=== PATIENT | female | born 1995 | race Caucasian/White ===

== ENCOUNTER 2018-04-07 22:41 | Emergency (ER) | payer SELFPAY ==
--- NOTE | 2018-04-08 01:01 | ER ---
Nurse's Notes [facility] Name: Nicole Myers Age: 22 yrs Sex: Female : 1995 Arrival Date: 04/07/2018 Time: 22:42 Bed 11 Private MD: Diagnosis: Otitis media, unspecified, left ear Presentation: 04/07 23:01 Presenting complaint: Patient states: that she has swollen lymph node on left side and fc left ear pain. Sore throat on Thursday but not today. Transition of care: patient was not received from another setting of care. Onset of symptoms was April 04, 2018. Risk Assessment: Do you want to hurt yourself or someone else? Patient reports no desire to harm self or others. Initial Sepsis Screen: Does the patient meet any 2 criteria? No. Patient's initial sepsis screen is negative. Does the patient have a suspected source of infection? No. Patient's initial sepsis screen is negative. Care prior to arrival: Medication(s) given: Tylenol, last at 1999. 23:01 Method Of Arrival: Ambulatory 23:01 Acuity: BRIANA 4 Triage Assessment: 23:04 General: Appears uncomfortable, obese, Behavior is calm, cooperative, appropriate for age. Pain: Complains of pain in left ear and neck Pain currently is 8 out of 10 on a pain scale. Pain began 2-3 days ago. Is continuous. EENT: Reports pain in left ear and left jaw when swallowing. Neuro: Level of Consciousness is awake, alert, obeys commands, Oriented to person, place, time, situation. Cardiovascular: No deficits noted. Respiratory: No deficits noted. GI: No deficits noted. : No deficits noted. Derm: Skin is pink, warm \T\ dry. Musculoskeletal: Circulation, motion, and sensation intact. Capillary refill < 3 seconds, Range of motion: intact in all extremities. 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 - Social history:: Smoking status: Patient/guardian denies using tobacco. - Ebola Screening: : Patient negative for fever greater than or equal to 101.5 degrees Fahrenheit, and additional compatible Ebola Virus Disease symptoms Patient denies exposure to infectious person Patient denies travel to an Ebola-affected area in the 21 days before illness onset. Screenin/23 00:55 Abuse screen: Denies threats or abuse. Nutritional screening: No deficits noted. kl Tuberculosis screening: No symptoms or risk factors identified. Fall Risk None identified. Assessment: 00:52 General: Appears in no apparent distress. kl 00:54 General: Behavior is calm, cooperative. Pain: Complains of pain in left jaw and left kl ear and neck Pain currently is 8 out of 10 on a pain scale. Neuro: No deficits noted. Cardiovascular: No deficits noted. Respiratory: No deficits noted. GI: No deficits noted. No signs and/or symptoms were reported involving the gastrointestinal system. : No deficits noted. No signs and/or symptoms were reported regarding the genitourinary system. EENT: Throat reports diffi swallowing. Derm: No deficits noted. Musculoskeletal: No deficits noted. Vital Signs: 04/07 23:05 BP 154 / 104; Pulse 92; Resp 18; Temp 99.1(TE); Pulse Ox 98% on R/A; Weight 190.51 kg fc (R); Height 5 ft. 4 in. (162.56 cm) (R); Pain 8/10; 23:05 Body Mass Index 72.09 (190.51 kg, 162.56 cm) ED Course: 22:42 Patient arrived in ED. ds1 23:01 Arm band placed on Patient placed in waiting room. 23:02 Triage completed. fc 23:59 Davida Cotto, ANAMARIA is Primary Nurse. bs1 04/08 00:33 Darrin Kramer NP is PHCP. pm1 00:33 Saúl Cortes MD is Attending Physician. pm1 01:10 Patient has correct armband on for positive identification. kl 01:10 No provider procedures requiring assistance completed. Patient did not have IV access kl during this emergency room visit. Administered Medications: 01:09 Drug: [place] 10 mg-325 mg 1 tabs Route: PO; kl 01:09 Drug: Augmentin 875 mg Route: PO; kl Outcome: 01:01 Discharge ordered by . pm1 01:10 Discharged to home ambulatory, with family. kl 01:10 Condition: good 01:10 Discharge instructions given to patient, Instructed on discharge instructions, follow up and referral plans. medication usage, Demonstrated understanding of instructions, follow-up care, medications, Prescriptions given X 2. 01:10 Patient left the ED. Signatures: Cecilia Solomon RN RN Xiomara Ugalde RN RN Yanelis Bello ds1 Darrin Kramer, DOTTY GLOVE TURNER pm1 Davida Cotto RN RN bs1
--- NOTE | 2018-04-08 01:01 | EDPHYS ---
Physician Documentation [facility] Name: Nicole Myers Age: 22 yrs Sex: Female : 1995 Arrival Date: 04/07/2018 Time: 22:42 Bed 11 Private MD: ED Physician Saúl Cortes HPI: 04/08 01:00 This 22 yrs old Female presents to ER via Ambulatory with complaints of Left pm1 ear pain. 01:00 The patient presents with pain. The complaints affect the left ear. Onset: The pm1 symptoms/episode began/occurred 2 day(s) ago. Modifying factors: The symptoms are alleviated by nothing, the symptoms are aggravated by pulling on ears. Associated signs and symptoms: Pertinent positives: fever, Pertinent negatives: nausea, sore throat, vertigo, vomiting. Severity of symptoms: in the emergency department the symptoms are worse. The patient has not experienced similar symptoms in the past. Patient with complaints of swollen lymph node below left ear. 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 - Social history:: Smoking status: Patient/guardian denies using tobacco. - Ebola Screening: : Patient negative for fever greater than or equal to 101.5 degrees Fahrenheit, and additional compatible Ebola Virus Disease symptoms Patient denies exposure to infectious person Patient denies travel to an Ebola-affected area in the 21 days before illness onset. ROS: 04/08 01:00 Eyes: Negative for injury, pain, redness, and discharge. pm1 Neck: Negative for injury, pain, and swelling, Cardiovascular: Negative for chest pain, palpitations, and edema, Respiratory: Negative for shortness of breath, cough, wheezing, and pleuritic chest pain, Abdomen/GI: Negative for abdominal pain, nausea, vomiting, diarrhea, and constipation, Back: Negative for injury and pain, MS/Extremity: Negative for injury and deformity, Skin: Negative for injury, rash, and discoloration, Neuro: Negative for headache, weakness, numbness, tingling, and seizure. Constitutional: Positive for fever, Negative for poor PO intake. ENT: Positive for ear pain, Negative for sore throat, dental pain, difficulty swallowing, difficulty handling secretions, hoarseness. Exam: 01:00 Constitutional: This is a well developed, well nourished patient who is awake, alert, pm1 and in no acute distress. Head/Face: Normocephalic, atraumatic. Eyes: Pupils equal round and reactive to light, extra-ocular motions intact. Lids and lashes normal. Conjunctiva and sclera are non-icteric and not injected. Cornea within normal limits. Periorbital areas with no swelling, redness, or edema. 01:00 Chest/axilla: Normal chest wall appearance and motion. Nontender with no deformity. No lesions are appreciated. Cardiovascular: Regular rate and rhythm with a normal S1 and S2. No gallops, murmurs, or rubs. Normal PMI, no JVD. No pulse deficits. Respiratory: Lungs have equal breath sounds bilaterally, clear to auscultation and percussion. No rales, rhonchi or wheezes noted. No increased work of breathing, no retractions or nasal flaring. 01:00 Abdomen/GI: Soft, non-tender, with normal bowel sounds. No distension or tympany. No guarding or rebound. No evidence of tenderness throughout. Back: No spinal tenderness. No costovertebral tenderness. Full range of motion. Skin: Warm, dry with normal turgor. Normal color with no rashes, no lesions, and no evidence of cellulitis. MS/ Extremity: Pulses equal, no cyanosis. Neurovascular intact. Full, normal range of motion. 01:00 ENT: External ear(s): are unremarkable, Ear canal(s): are normal, TM's: bulging, on the left, erythema, on the left, Examination of the other ear shows no obvious abnormality, Nose: is normal, Mouth: is normal, Posterior pharynx: is normal. 01:00 Neck: Lymph nodes: lymphadenopathy is appreciated, preauricular nodes, parotid nodes. 01:00 Neuro: Orientation: is normal, Motor: moves all fours. Vital Signs: 04/07 23:05 BP 154 / 104; Pulse 92; Resp 18; Temp 99.1(TE); Pulse Ox 98% on R/A; Weight 190.51 kg fc (R); Height 5 ft. 4 in. (162.56 cm) (R); Pain 8/10; 23:05 Body Mass Index 72.09 (190.51 kg, 162.56 cm) MDM: 04/08 00:50 Patient medically screened. pm1 01:00 Data reviewed: vital signs. Data interpreted: Pulse oximetry: on room air is 98 %. pm1 Interpretation: normal. Counseling: I had a detailed discussion with the patient and/or guardian regarding: the historical points, exam findings, and any diagnostic results supporting the discharge/admit diagnosis, the need for outpatient follow up, to return to the emergency department if symptoms worsen or persist or if there are any questions or concerns that arise at home. Administered Medications: 01:09 Drug: [place] 10 mg-325 mg 1 tabs Route: PO; kl 01:09 Drug: Augmentin 875 mg Route: PO; Disposition: 04/08/18 01:01 Discharged to Home. Impression: Otitis media, unspecified, left ear. - Condition is Stable. - Discharge Instructions: Otitis Media, Adult. - Prescriptions for Augmentin 875- 125 mg Oral Tablet - take 1 tablet by ORAL route every 12 hours for 10 days; 20 tablet. Tylenol- Codeine #3 300-30 mg Oral Tablet - take 2 tablets by ORAL route every 6 hours As needed; 20 tablet. - Medication Reconciliation Form, Thank You Letter, Antibiotic Education, Prescription Opioid Use form. - Follow up: Emergency Department; When: As needed; Reason: Worsening of condition. Follow up: Private Physician; When: 2 - 3 days; Reason: Recheck today's complaints, Continuance of care, Re-evaluation by your physician. - Problem is new. - Symptoms have improved. Addendum: 04/12/2018 17:38 Co-signature as Attending Physician, Saúl Cortes MD. g s Signatures: Cecilia Solomon RN RN kl Chretien, Felicia, RN RN fc Marinas, Patrick, DOTTY GRADUATE ENGINEER pm1 Saúl Cortes MD MD Corrections: (The following items were deleted from the chart) 04/08 01:10 01:01 04/08/2018 01:01 Discharged to Home. Impression: Otitis media, unspecified, left kl ear. Condition is Stable. Forms are Medication Reconciliation Form, Thank You Letter, Antibiotic Education, Prescription Opioid Use. Follow up: Emergency Department; When: As needed; Reason: Worsening of condition. Follow up: Private Physician; When: 2 - 3 days; Reason: Recheck today's complaints, Continuance of care, Re-evaluation by your physician. Problem is new. Symptoms have improved. pm1
[2018-04-08] MEDS ORDERED: HYDROCODONE/APAP 10/325 TAB ONE (01:11)
[2018-04-08] MEDS ORDERED: AMOX/K CLAV 875 MG TAB ONE (01:11)
== END 2018-04-08 01:10 | disposition home or self-care (01) ==
LOC: ER 22:41
DX: H66.92 Otitis media, unspecified, left ear (principal); I10 Essential (primary) hypertension; Z88.8 Allergy status to other drugs, medicaments and biological substances
CPT/HCPCS: 99283

== ENCOUNTER 2020-04-23 18:11 | Emergency (ER) | payer SELFPAY ==
[2020-04-23] MEDS ORDERED: ONDANSETRON 4 MG/2 ML VIAL ONE (18:57)
[2020-04-23] MEDS ORDERED: MORPHINE 4 MG/ML SYR ONE ×2 (18:57→20:26)
[2020-04-23] MEDS ORDERED: NA CHLORIDE 0.9% 1,000 ML ONE (18:57)
[2020-04-23 19:31] LABS: Absolute Lymphocytes (CBC) 1.4 K/uL (0.7-4.9); Basophils % 0.4 % (0-1.3); Hematocrit 46.6 % (36.0-45.0); Lymphocytes % 8.4 % (15.3-44.8); MPV 9.4 fL (7.6-11.3); RBC Red Blood Cell Count 5.34 M/uL (3.86-4.86)
[2020-04-23 19:44] LABS: Albumin 3.8 g/dL (3.4-5.0); Bilirubin Direct 0.3 mg/dL (0-0.2); Bilirubin Total 1.2 mg/dL (0.2-1.0); Potassium 3.9 mmol/L (3.5-5.1); Protein, Total 8.5 g/dL (6.4-8.2)
[2020-04-23 19:49] LABS: Urine Bacteria 20-50 /HPF (<20); Urine Culture Reflex Order REFLEXED
[2020-04-23 20:17] LABS: Urine Yeast FEW (NONE SEEN)
[2020-04-23] MEDS ORDERED: CEFTRIAXONE/SWI 1gm 1 GM/10 ML SYR ONE (20:26)
--- NOTE | 2020-04-23 20:45 | RAD REPORT ---
EXAM DESCRIPTION: CT - Abdomen Pelvis W Contrast - 04/23/2020 7:57 pm CLINICAL HISTORY: Abdominal pain COMPARISON: 2010 TECHNIQUE: Computed axial tomography of the abdomen pelvis was obtained. 100 cc Isovue-300 was admin istered intravenously. Oral contrast was not requested which limits evaluation of bowel. All CT scans are performed using dose optimization technique as appropriate and may include automated exposure control or mA/KV adjustment according to patient size. FINDINGS: Hepatomegaly. Fatty liver Spleen is mildly enlarged. Pancreas, adrenal and right kidney appear unremarkable. Mild left hydronephrosis. 2 millimeter calculus left UVJ There is no evidence of diverticulitis. IMPRESSION: A 2 millimeter calculus left UVJ resulting mild left hydronephrosis Hepatosplenomegaly.
[2020-04-23 21:18] LABS: Urine Blood 3+ (NEG); Urine Glucose NEGATIVE (NEG); Urine Protein 2+ (NEG); Urine Specific Gravity >1.030 (1.005-1.030); Urine pH 5.5 (5.0-7.0)
[2020-04-23 21:24] LABS: Blood Morphology Comment NOT SEEN (NOT SEEN); Platelet Estimate ADEQ
--- NOTE | 2020-04-23 21:29 | EDPHYS ---
Physician Documentation [facility] Name: Nicole Myers Age: 24 yrs Sex: Female : 1995 Arrival Date: 04/23/2020 Time: 18:15 Bed 5 Private MD: ED Physician Nova Navarrete HPI: 04/23 18:39 This 24 yrs old Female presents to ER via Ambulatory with complaints of Back pm1 Pain, Abdominal Pain, Vomiting. 18:39 The patient presents with pain that is acute. The symptoms are located in the left low pm1 back. Onset: The symptoms/episode began/occurred this morning. The pain does not radiate. Associated signs and symptoms: Pertinent positives: abdominal pain, dysuria, Pertinent negatives: fever. The problem was sustained from unknown cause. Modifying factors: The patient symptoms are alleviated by nothing, the patient symptoms are aggravated by nothing. Severity of symptoms: in the emergency department the symptoms are actually worse. The patient has not experienced similar symptoms in the past. 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 - Social history:: Smoking status: Patient denies any tobacco usage or history of. ROS: 18:39 Constitutional: Negative for fever, chills, and weight loss. pm1 18:39 Cardiovascular: Negative for chest pain, palpitations, and edema, Respiratory: Negative for shortness of breath, cough, wheezing, and pleuritic chest pain. 18:39 MS/Extremity: Negative for injury and deformity, Skin: Negative for injury, rash, and discoloration, Neuro: Negative for headache, weakness, numbness, tingling, and seizure. 18:39 Abdomen/GI: Positive for abdominal pain, nausea, vomiting, diarrhea, of the left lower quadrant. 18:39 Back: Positive for flank pain, on the left. 18:39 : Positive for burning with urination. Exam: 18:39 Constitutional: This is a well developed, well nourished patient who is awake, alert, pm1 and in no acute distress. Head/Face: Normocephalic, atraumatic. 18:39 Skin: Warm, dry with normal turgor. Normal color with no rashes, no lesions, and no evidence of cellulitis. MS/ Extremity: Pulses equal, no cyanosis. Neurovascular intact. Full, normal range of motion. 18:39 Cardiovascular: Exam negative for acute changes, Rate: normal, Rhythm: regular, Pulses: no pulse deficits are appreciated. 18:39 Respiratory: Exam negative for acute changes, respiratory distress, shortness of breath. 18:39 Abdomen/GI: Exam negative for acute changes, Inspection: obese Palpation: abdomen is soft and non-tender, in all quadrants. 18:39 Back: pain, that is moderate, of the left low back. 18:39 Neuro: Exam negative for acute changes, Orientation: is normal, Mentation: is normal, Motor: is normal, moves all fours, Sensation: is normal, no obvious gross deficits. Vital Signs: 18:30 BP 184 / 89; Pulse 123; Resp 18 S; Temp 98.6(O); Pulse Ox 97% on R/A; Weight 190.51 kg iw (R); Height 5 ft. 5 in. (165.10 cm); Pain 8/10; 19:17 BP 113 / 100; Pulse 112; Resp 19; Pulse Ox 98% ; rr5 19:54 BP 144 / 95; Pulse 93; Resp 17; Pulse Ox 100% ; Pain 6/10; mt2 20:30 BP 125 / 83; Pulse 108; Resp 16; Pulse Ox 98% ; rr5 21:16 BP 153 / 91; Pulse 90; Resp 19; Pulse Ox 99% ; rr5 18:30 Body Mass Index 69.89 (190.51 kg, 165.10 cm) iw MDM: 18:35 Patient medically screened. pm1 21:18 Data reviewed: vital signs. Data interpreted: Pulse oximetry: on room air is 99 %. pm1 Interpretation: normal. Counseling: I had a detailed discussion with the patient and/or guardian regarding: the historical points, exam findings, and any diagnostic results supporting the discharge/admit diagnosis, lab results, radiology results, the need for outpatient follow up, a urologist, to return to the emergency department if symptoms worsen or persist or if there are any questions or concerns that arise at home. 04/23 18:37 Order name: Urine Microscopic Only; Complete Time: 20:20 pm1 04/23 18:37 Order name: Basic Metabolic Panel; Complete Time: 19:57 pm1 04/23 18:37 Order name: CBC with Diff; Complete Time: 22:57 pm1 04/23 18:37 Order name: Hepatic Function; Complete Time: 19:57 pm1 04/23 18:37 Order name: Lipase; Complete Time: 19:57 pm1 04/23 19:04 Order name: Urine Dipstick--Ancillary (enter results); Complete Time: 22:57 ss 04/23 18:37 Order name: CT Abd/Pelvis - IV Contrast Only; Complete Time: 20:49 pm1 04/23 19:04 Order name: Urine --Ancillary (enter results); Complete Time: 22:57 ss 04/23 19:51 Order name: Urine Culture EDGA 04/23 21:22 Order name: Manual Differential; Complete Time: 22:57 EDGA 04/23 18:37 Order name: Urine Dipstick-Ancillary (obtain specimen); Complete Time: 19:03 pm1 04/23 18:37 Order name: Urine Test (obtain specimen); Complete Time: 19:03 pm1 04/23 18:37 Order name: IV Saline Lock; Complete Time: 19:14 pm1 04/23 18:37 Order name: Labs collected and sent; Complete Time: 19:13 pm1 Administered Medications: 19:13 Drug: NS 0.9% 1000 ml Route: IV; Rate: 1000 ml; Site: left forearm; jr10 21:25 Follow up: Response: No adverse reaction; IV Status: Completed infusion mt2 19:13 Drug: morphine 4 mg Route: IVP; Site: left forearm; jr10 19:40 Follow up: Response: No adverse reaction; Pain is decreased mt2 19:13 Drug: Zofran (Ondansetron) 4 mg Route: IVP; Site: left forearm; jr10 19:39 Follow up: Response: No adverse reaction; Pain is decreased mt2 20:24 Drug: Rocephin 1 grams Route: IV; Rate: calculated rate; Site: left forearm; mt2 21:00 Follow up: Response: No adverse reaction mt2 21:00 Follow up: IV Status: Completed infusion mt2 20:24 Drug: morphine 4 mg Route: IVP; Site: left forearm; mt2 21:00 Follow up: Response: No adverse reaction; Pain is decreased mt2 21:22 Drug: Ciprofloxacin 500 mg Route: PO; rr5 21:25 Follow up: Response: Medication administered at discharge. mt2 21:22 Drug: Flomax 0.4 mg Route: PO; rr5 21:25 Follow up: Response: Medication administered at discharge. mt2 Disposition: 04/23/20 21:20 Discharged to Home. Impression: Calculus of ureter - left. - Condition is Stable. - Discharge Instructions: Kidney Stones, Dietary Guidelines to Help Prevent Kidney Stones. - Prescriptions for Tylenol- Codeine #3 300-30 mg Oral Tablet - take 2 tablets by ORAL route every 6 hours As needed; 20 tablet. Zofran 4 mg Oral Tablet - take 1 tablet by ORAL route every 8 hours As needed; 20 tablet. Flomax 0.4 mg Oral Capsule, Sust. Release 24 hr - take 1 capsule by ORAL route once daily 1/2 hour following the same meal each day; 10 capsule. Cipro 500 mg Oral Tablet - take 1 tablet by ORAL route every 12 hours for 10 days; 20 tablet. - Medication Reconciliation Form, Thank You Letter, Antibiotic Education, Prescription Opioid Use form. - Follow up: Emergency Department; When: As needed; Reason: Worsening of condition. Follow up: Private Physician; When: 2 - 3 days; Reason: Recheck today's complaints, Continuance of care, Re-evaluation by your physician. - Problem is new. - Symptoms have improved. Signatures: Dispatcher [employer] [facility] Arabella Jiménez RN RN iw Darrin Kramer, DOTTY DINING ROOM HELPER pm1 Nolan Irby RN RN rr5 Jennifer Quinn RN RN mt2 Jess Decker RN RN jr10 Corrections: (The following items were deleted from the chart) 21:22 19:35 CBC Smear Scan ordered. [facility] 21:30 21:20 04/23/2020 21:20 Discharged to Home. Impression: Calculus of ureter - left. mt2 Condition is Stable. Forms are Medication Reconciliation Form, Thank You Letter, Antibiotic Education, Prescription Opioid Use. Follow up: Emergency Department; When: As needed; Reason: Worsening of condition. Follow up: Private Physician; When: 2 - 3 days; Reason: Recheck today's complaints, Continuance of care, Re-evaluation by your physician. Problem is new. Symptoms have improved. pm1
--- NOTE | 2020-04-23 21:29 | ER ---
Nurse's Notes [facility] Name: Nicole Myers Age: 24 yrs Sex: Female : 1995 Arrival Date: 04/23/2020 Time: 18:15 Bed 5 Private MD: Diagnosis: Calculus of ureter-left Presentation: 04/23 18:30 Chief complaint: Patient states: left low back pain radiating to middle since this iw morning, also had low abd pain , nausea, diarrhea, vomited twice, +chills, +discomfort with urination. Coronavirus screen: chills, diarrhea, vomiting. Ebola Screen: Patient negative for fever greater than or equal to 101.5 degrees Fahrenheit, and additional compatible Ebola Virus Disease symptoms Patient denies exposure to infectious person. Patient denies travel to an Ebola-affected area in the 21 days before illness onset. No symptoms or risks identified at this time. Initial Sepsis Screen: Does the patient meet any 2 criteria? No. Patient's initial sepsis screen is negative. Does the patient have a suspected source of infection? No. Patient's initial sepsis screen is negative. Risk Assessment: Do you want to hurt yourself or someone else? Patient reports no desire to harm self or others. Onset of symptoms was April 23, 2020. 18:30 Method Of Arrival: Ambulatory iw 18:30 Acuity: BRIANA 3 iw TECHNOLOGY COORDINATOR: 18:33 LMP N/A - Irregular menses iw Historical: - Allergies: 18:34 Hydrochlorothiazide; iw - Home Meds: 18:34 None [Active]; iw - PMHx: 18:34 Back pain; fatty liver; Hypertension; Anxiety; Depression; iw - PSHx: 18:34 None; iw - Immunization history:: Adult Immunizations not up to date. - Social history:: Smoking status: Patient denies any tobacco usage or history of. Screenin:21 Abuse screen: Denies threats or abuse. Denies injuries from another. Nutritional rr5 screening: No deficits noted. Tuberculosis screening: No symptoms or risk factors identified. Fall Risk IV access (20 points). Total Simmons Fall Scale indicates No Risk (0-24 pts). Assessment: 19:17 General: Appears in no apparent distress. comfortable, Behavior is calm, cooperative, rr5 appropriate for age. Pain: Complains of pain in abdomen Pain radiates to back Pain currently is 5 out of 10 on a pain scale. Quality of pain is described as aching, Pain began gradually, Is intermittent. Neuro: Level of Consciousness is awake, alert, obeys commands, Oriented to person, place, time, situation. Cardiovascular: Capillary refill < 3 seconds Patient's skin is warm and dry. Respiratory: Airway is patent Respiratory effort is even, unlabored, Respiratory pattern is regular, symmetrical. GI: Abdomen is round non-distended, obese, Reports lower abdominal pain, upper abdominal pain, vomiting. : No signs and/or symptoms were reported regarding the genitourinary system. EENT: No signs and/or symptoms were reported regarding the EENT system. Derm: Skin is intact, is healthy with good turgor, Skin temperature is warm. Musculoskeletal: Circulation, motion, and sensation intact. Capillary refill < 3 seconds. 19:53 Reassessment: Patient appears in no apparent distress at this time. Patient is alert, rr5 oriented x 3, equal unlabored respirations, skin warm/dry/pink. send for CT scan. 19:54 Reassessment: Patient and/or family updated on plan of care and expected duration. Pain mt2 level reassessed. Patient is alert, oriented x 3, equal unlabored respirations, skin warm/dry/pink. General: Appears uncomfortable, Behavior is cooperative. Pain: Complains of pain in abdomen Pain currently is 6 out of 10 on a pain scale. Quality of pain is described as crampy. 20:30 Reassessment: Patient appears in no apparent distress at this time. Patient is alert, rr5 oriented x 3, equal unlabored respirations, skin warm/dry/pink. Patient states symptoms have improved. 21:16 Reassessment: Patient appears in no apparent distress at this time. Patient is alert, rr5 oriented x 3, equal unlabored respirations, skin warm/dry/pink. reassess by ED provider at bedside. Vital Signs: 18:30 BP 184 / 89; Pulse 123; Resp 18 S; Temp 98.6(O); Pulse Ox 97% on R/A; Weight 190.51 kg iw (R); Height 5 ft. 5 in. (165.10 cm); Pain 8/10; 19:17 BP 113 / 100; Pulse 112; Resp 19; Pulse Ox 98% ; rr5 19:54 BP 144 / 95; Pulse 93; Resp 17; Pulse Ox 100% ; Pain 6/10; mt2 20:30 BP 125 / 83; Pulse 108; Resp 16; Pulse Ox 98% ; rr5 21:16 BP 153 / 91; Pulse 90; Resp 19; Pulse Ox 99% ; rr5 18:30 Body Mass Index 69.89 (190.51 kg, 165.10 cm) iw ED Course: 18:15 Patient arrived in ED. mr 18:25 Darrin Kramer NP is PHCP. pm1 18:25 Nova Navarrete MD is Attending Physician. pm1 18:33 Triage completed. iw 18:33 Arm band placed on. iw 18:34 Patient has correct armband on for positive identification. Bed in low position. Call mh5 light in reach. Side rails up X 1. Pillow given. Pulse ox on. NIBP on. 18:40 Radiology exam delayed due to test not completed at this time. IV insertion vm2 attempt and/or patient not having appropriate IV at this time. 19:01 Jennifer Quinn, ANAMARIA is Primary Nurse. mt2 19:14 No provider procedures requiring assistance completed. Inserted saline lock: 20 gauge jr10 in left forearm, using aseptic technique. IV is patent, is intact, with fluids infusing freely, with good blood return, Flushed. 19:58 CT Abd/Pelvis - IV Contrast Only In Process Unspecified. EDMS 21:26 IV discontinued, intact, bleeding controlled, No redness/swelling at site. Pressure mt2 dressing applied. Administered Medications: 19:13 Drug: NS 0.9% 1000 ml Route: IV; Rate: 1000 ml; Site: left forearm; jr10 21:25 Follow up: Response: No adverse reaction; IV Status: Completed infusion mt2 19:13 Drug: morphine 4 mg Route: IVP; Site: left forearm; jr10 19:40 Follow up: Response: No adverse reaction; Pain is decreased mt2 19:13 Drug: Zofran (Ondansetron) 4 mg Route: IVP; Site: left forearm; jr10 19:39 Follow up: Response: No adverse reaction; Pain is decreased mt2 20:24 Drug: Rocephin 1 grams Route: IV; Rate: calculated rate; Site: left forearm; mt2 21:00 Follow up: Response: No adverse reaction mt2 21:00 Follow up: IV Status: Completed infusion mt2 20:24 Drug: morphine 4 mg Route: IVP; Site: left forearm; mt2 21:00 Follow up: Response: No adverse reaction; Pain is decreased mt2 21:22 Drug: Ciprofloxacin 500 mg Route: PO; rr5 21:25 Follow up: Response: Medication administered at discharge. mt2 21:22 Drug: Flomax 0.4 mg Route: PO; rr5 21:25 Follow up: Response: Medication administered at discharge. mt2 Outcome: 21:20 Discharge ordered by MD. pm1 21:25 Discharged to home ambulatory. mt2 21:25 Condition: good 21:25 Discharge instructions given to patient, Instructed on discharge instructions, follow up and referral plans. medication usage, Demonstrated understanding of instructions, follow-up care, medications, Prescriptions given X 4. 21:30 Patient left the ED. mt2 Signatures: Dispatcher [employer] EDMS Stefani Decker Irene RN RN Darrin Kramer NP MEDICAL CHIEF TECHNICIAN 1 Emily Ríos 5 Heather Munoz 2 Nolan Irby RN RN rr5 Jennifer Quinn RN RN mt2 Jess Decker RN RN jr10 Corrections: (The following items were deleted from the chart) 21:29 21:25 Discharge instructions given to patient, Instructed on discharge instructions, mt2 follow up and referral plans. medication usage, Demonstrated understanding of instructions, follow-up care, medications, Prescriptions given X 2, mt2
[2020-04-23] MEDS ORDERED: CIPROFLOXACIN HCL 500 MG TAB ONE (21:32)
[2020-04-23] MEDS ORDERED: TAMSULOSIN 0.4 MG SR CAP ONE (21:32)
[2020-04-24 08:01] VITALS: TEMP 98.6
[2020-04-24 08:06] VITALS: BP 153/91; O2SAT 99
== END 2020-04-23 21:30 | disposition home or self-care (01) ==
LOC: ER 18:11
DX: N20.1 Calculus of ureter (principal); I10 Essential (primary) hypertension; Z88.8 Allergy status to other drugs, medicaments and biological substances
CPT/HCPCS: 36415; 74177; 80048; 80076; 81003; 81015; 81025; 83690; 85025; 87086; 87088; 96361; 96365; 96375; 99284; J0696; J2405; J7030; Q9967

== ENCOUNTER 2021-12-20 17:17 | Emergency (ER) | payer SELFPAY ==
--- OUTSIDE RECORDS SUMMARY | 2021-12-20 17:19 | XMS REPORT | Continuity of Care Document ---
:1995 Author Organization [facility] t Address [address] [place] [address] [address] [place] [address] Care Team Providers Name Role Phone Unavailable Unavailable Unavailable Problems This patient has no known problems. Allergies, Adverse Reactions, Alerts This patient has no known allergies or adverse reactions. Medications This patient has no known medications. Procedures This patient has no known procedures. Results Test Description Test Time Test Comments Results Result Comments Source COMPREHENSIVE METABOLIC PANEL 2021-09-19 03:48:15 Test Item Value Reference Range Interpretation Comme nts GLUCOSE (test code = 2217) 108 MG/DL 70-99 H BUN (test code = 2208) 15 MG/DL 6-20 CREATININE (test code = 0.64 MG/DL 0.60-1.30 2213) eGFR (2020 CKD-EPI) (test 124 ML/MIN/1.73 >60 code = 23690) CALC BUN/CREAT (test code = 23 RATIO 6-28 2234) SODIUM (test code = 2231) 140 MEQ/L 133-146 POTASSIUM (test code = 2228) 4.3 MEQ/L 3.5-5.4 CHLORIDE (test code = 2215) 100 MEQ/L 95-107 CARBON DIOXIDE (test code = 24 MEQ/L 19-31 2205) CALCIUM (test code = 2209) 10.4 MG/DL 8.5-10.5 PROTEIN, TOTAL (test code = 8.2 G/DL 6.1-8.3 2228) ALBUMIN (test code = 2201) 4.7 G/DL 3.5-5.2 CALC GLOBULIN (test code = 3.5 G/DL 1.9-3.7 2239) CALC A/G RATIO (test code = 1.3 RATIO 1.0-2.6 2233) BILIRUBIN, TOTAL (test code 0.7 MG/DL See_Comment [Automated message] The = 2207) system which ge nerated this result transmit jerri reference range : <=1.2. The reference range was not used to interpr et this result as iris l/abnormal. ALKALINE PHOSPHATASE (test 90 U/L 40-112 code = 2204) AST (test code = 2218) 19 U/L 9-40 ALT (test code = 2219) 28 U/L 5-40 LIPID [id number] 03:48:15 Test Item Value Reference Range Interpretation Comments CHOLESTEROL (test 193 MG/DL <200 code = 2210) TRIGLYCERIDES (test 107 MG/DL <150 code = 2232) HDL CHOLESTEROL (test 43 MG/DL >39 code = 2220) CALC LDL CHOL (test 129 MG/DL <100 H NOTE: C ALCULATED LDL code = 2237) IS BASED ON KASEY-KUMAR METHOD WHICHINCLUDES ADJUSTABLE TRIGLYCERIDE:VL DL CHOLESTEROL RAT IO.THIS FACTOR VARIES B Y MEASURED TRIGLY CERIDE AND NON-HDLCHOL ESTEROL CONCENTRATIONS WITH INCREASED CALCU LATED LDL SEENIN HIGH ER TRIGLYCERIDE OR LOWER NON-HDL SPECIME NS. FOR MOREINFORMATION , SEE CLIENT ANNOUNCE MENT AT [email or web address] [email or web address] LDL/HDL 3.00 RATIO <3.22 (test code = 2238) HEMOGLOBIN [id number] 02:42:45 Test Item Value Reference Range Interpretation Comments HEMOGLOBIN A1c (test 6.1 % 4.2-5.6 H UNLESS OTHERWISE code = 09040) INDICATED, ALL TESTING PERFORMED [facility] NICAL PATHOLOGY LABOR [facility] [place] [employer] [address] [place] [address] 4 LABORATORY DIRE CTOR: RICHY BOND M.D. CLIA NUMBER [id number] [facility] [place] [id number]
[2021-12-20] MEDS ORDERED: HYDROCODONE/APAP 7.5/325 MG TAB ONE (18:22)
[2021-12-20] MEDS ORDERED: TETRACAINE HCL 0.5% 4ML OPTH ONE (18:23)
[2021-12-20] MEDS ORDERED: TETANUS & DIPHTHERIA TOX,ADULT 0.5 ML VIAL ONE (18:23)
[2021-12-20] MEDS ORDERED: FLUORESCEIN SODIUM 1 MG/WRAP ONE (18:23)
[2021-12-20] MEDS ORDERED: CYCLOBENZAPRINE 10 MG TAB ONE (19:23)
[2021-12-20] MEDS ORDERED: LIDOCAINE 4% PATCH ONE (19:23)
--- NOTE | 2021-12-20 19:26 | EDPHYS ---
Physician Documentation [facility] Name: Nicole Myers Age: 26 yrs Sex: Female : 1995 Arrival Date: 12/20/2021 Time: 17:18 Bed 6 Private MD: ED Physician Nelda Ramirez HPI: 12/20 18:11 This 26 yrs old Female presents to ER via Ambulatory with complaints of Eye Pain, Ear pm1 Pain. 18:11 The patient is experiencing pain, redness, The patient sustained a scratch, to the pm1 right eye, caused by rubbing. Onset: The symptoms/episode began/occurred yesterday. Duration: the symptoms are continuous. Aggravated by nothing. Alleviated by nothing. Associated signs and symptoms: Pertinent positives: ear ache, Pertinent negatives: fever. Patient does not utilize any form of vision correction. Severity of symptoms: in the emergency department the symptoms are unchanged. The patient has not experienced similar symptoms in the past. The patient has not recently seen a physician. Patient is also reporting flare up of her left sided sciatica. Historical: - Allergies: 17:46 hydrochlorothiazide; iw - Home Meds: 17:46 lisinopril 40 mg Oral tab 1 tab once daily [Active]; glipizide 10 mg Oral tr24 1 tab iw once daily [Active]; Lovastatin Oral [Active]; Cyclobenzaprine Oral [Active]; - PMHx: 17:46 Anxiety; Back pain; Depression; fatty liver; Hypertension; Diabetes mellitus; iw - Immunization history:: Adult Immunizations unknown. - Social history:: Smoking status: unknown. ROS: 18:11 Constitutional: Negative for fever, chills, and weight loss. pm1 18:11 Neck: Negative for injury, pain, and swelling, Cardiovascular: Negative for chest pain, palpitations, and edema, Respiratory: Negative for shortness of breath, cough, wheezing, and pleuritic chest pain, Abdomen/GI: Negative for abdominal pain, nausea, vomiting, diarrhea, and constipation, Back: Negative for injury and pain. 18:11 Skin: Negative for injury, rash, and discoloration, Neuro: Negative for headache, weakness, numbness, tingling, and seizure. 18:11 Eyes: Positive for pain, redness, of the right eye. 18:11 ENT: Positive for ear pain, of the right ear. 18:11 MS/extremity: Positive for left sided sciatica pain. 18:11 All other systems are negative. Exam: 19:21 Constitutional: This is a well developed, well nourished patient who is awake, alert, pm1 and in no acute distress. Head/Face: Normocephalic, atraumatic. 19:21 Back: No spinal tenderness. No costovertebral tenderness. Full range of motion. Skin: Warm, dry with normal turgor. Normal color with no rashes, no lesions, and no evidence of cellulitis. MS/ Extremity: Pulses equal, no cyanosis. Neurovascular intact. Full, normal range of motion. 19:21 Eyes: Periorbital structures: appear normal, Pupils: no acute changes, Extraocular movements: no acute changes, Conjunctiva: injected, in the right eye, Corneas: abrasion, on the right, at 9 o'clock, foreign body, is not appreciated, a fluorescein strip employed to appreciate the findings, Lids and lashes: no acute changes. 19:21 ENT: Exam is negative for acute changes, External ear(s): are unremarkable, Ear canal(s): are normal, TM's: are normal, Mouth: no acute changes, Lips: normal, moist, Oral mucosa: normal, pink and intact, moist. 19:21 Cardiovascular: Exam negative for acute changes, Rate: normal, Rhythm: regular, Pulses: no pulse deficits are appreciated. 19:21 Respiratory: Exam negative for acute changes, respiratory distress, shortness of breath. 19:21 Neuro: Exam negative for acute changes, Orientation: is normal, Mentation: is normal, Motor: is normal, moves all fours. Vital Signs: 17:45 BP 114 / 67; Pulse 110; Resp 16; Temp 97.9; Weight 165.56 kg; Height 5 ft. 5 in. iw (165.10 cm); 17:45 Body Mass Index 60.74 (165.56 kg, 165.10 cm) Visual Acuity: 18:31 Left Eye Visual acuity 20/25, Pupil size 4 mm, Normal, React To Light, Reactive To jd3 Accomodation; Right Eye Visual acuity 20/30, Pupil size 4 mm, Normal, React To Light, Reactive To Accomodation; Both Eyes Visual acuity 20/20; With Lenses; MDM: 17:51 Patient medically screened. pm1 19:24 Data reviewed: vital signs. pm1 19:24 Counseling: I had a detailed discussion with the patient and/or guardian regarding: the pm1 historical points, exam findings, and any diagnostic results supporting the discharge/admit diagnosis, the need for outpatient follow up, an opthalmologist, to return to the emergency department if symptoms worsen or persist or if there are any questions or concerns that arise at home. 12/20 18:11 Order name: Eye Tray; Complete Time: 18:30 pm1 12/20 18:11 Order name: Fluoresene Opth strip; Complete Time: 18:30 pm1 12/20 18:11 Order name: Visual Acuity; Complete Time: 18:30 pm1 Administered Medications: 18:29 Drug: Tetanus-Diphtheria Toxoid Adult 0.5 ml {Dispatcher Clerk: [employer]. Exp: jd3 10/26/2023. Lot #: [id number]. } Route: IM; Site: left deltoid; 19:02 Follow up: Response: No adverse reaction jd3 18:30 Drug: [place] (HYDROcodone-acetaminophen) (7.5 mg-325 mg) 1 tabs Route: PO; jd3 19:03 Follow up: Response: No adverse reaction; RASS: Alert and Calm (0) jd3 18:30 Drug: Tetracaine Drops 0.5 % 1 drops {Note: at bedside to be administered by provider jd3 with eye exam..} Route: Ophthalmic; Site: right eye; 19:22 Drug: Flexeril (cyclobenzaprine) 10 mg Route: PO; tw5 19:46 Follow up: Response: No adverse reaction; RASS: Alert and Calm (0) tw5 19:23 Drug: Lidoderm Patch 5 % (700 mg/patch) 1 patches Route: Topical; Site: affected area; tw5 19:46 Follow up: Response: No adverse reaction; Pain is decreased tw5 Disposition Summary: 12/20/21 19:26 Discharge Ordered Location: Home pm1 Problem: new pm1 Symptoms: have improved pm1 Condition: Stable pm1 Diagnosis - Injury of conjunctiva and corneal abrasion without foreign body, right eye pm1 - Otalgia, bilateral pm1 - Lumbago with sciatica, left side pm1 Followup: pm1 - With: Emergency Department - When: As needed - Reason: Worsening of condition Followup: pm1 - With: Private Physician - When: 2 - 3 days - Reason: Recheck today's complaints, Continuance of care, Re-evaluation by your physician Discharge Instructions: - Discharge Summary Sheet pm1 - Corneal Abrasion pm1 - Earache, Adult pm1 - Sciatica pm1 Forms: - Medication Reconciliation Form pm1 - Thank You Letter pm1 - Antibiotic Education pm1 - Prescription Opioid Use pm1 Prescriptions: - Vigamox 0.5 % Ophthalmic Drops - instill 1 drop by OPHTHALMIC route every 8 hours for 7 days; 5 milliliter; pm1 Refills: 0, Product Selection Permitted - Tylenol-Codeine #3 300 mg-30 mg Oral - take 2 tablet by ORAL route every 6 hours As needed; 20 tablet; Refills: 0, pm1 Product Selection Permitted Signatures: Arabella Jiménez RN Darrin Lorenz NP MISSILE FACILITIES REPAIRER pm1 Berry Conti RN RN jd3 Wood, Tiffany tw5
--- NOTE | 2021-12-20 19:26 | ER ---
Nurse's Notes [facility] Name: Nicole Myers Age: 26 yrs Sex: Female : 1995 Arrival Date: 12/20/2021 Time: 17:18 Bed 6 Private MD: Diagnosis: Injury of conjunctiva and corneal abrasion without foreign body, right eye;Otalgia, bilateral;Lumbago with sciatica, left side Presentation: 12/20 17:45 Chief complaint: Parent and/or Guardian states: might have a scratched cornea, hit iw herself with her hand in right eye , and her left hip is acting up, has sciatica. Coronavirus screen: At this time, the client does not indicate any symptoms associated with coronavirus-19. Ebola Screen: Patient negative for fever greater than or equal to 101.5 degrees Fahrenheit, and additional compatible Ebola Virus Disease symptoms Patient denies exposure to infectious person. Patient denies travel to an Ebola-affected area in the 21 days before illness onset. No symptoms or risks identified at this time. Mechanism of Injury: No Mechanism of Injury. The patient denies any loss of vision. Initial Sepsis Screen: Does the patient meet any 2 criteria? No. Patient's initial sepsis screen is negative. Does the patient have a suspected source of infection? No. Patient's initial sepsis screen is negative. Risk Assessment: Do you want to hurt yourself or someone else? Patient reports no desire to harm self or others. Onset of symptoms was December 19, 2021. 17:45 Method Of Arrival: Ambulatory iw 17:45 Acuity: BRIANA 4 iw Historical: - Allergies: 17:46 hydrochlorothiazide; iw - Home Meds: 17:46 lisinopril 40 mg Oral tab 1 tab once daily [Active]; glipizide 10 mg Oral tr24 1 tab iw once daily [Active]; Lovastatin Oral [Active]; Cyclobenzaprine Oral [Active]; - PMHx: 17:46 Anxiety; Back pain; Depression; fatty liver; Hypertension; Diabetes mellitus; iw - Immunization history:: Adult Immunizations unknown. - Social history:: Smoking status: unknown. Screenin:33 Abuse screen: Denies threats or abuse. Nutritional screening: No deficits noted. jd3 Tuberculosis screening: No symptoms or risk factors identified. Fall Risk Ambulatory Aid- None/Bed Rest/Nurse Assist (0 pts). Gait- Normal/Bed Rest/Wheelchair (0 pts) Mental Status- Oriented to own ability (0 pts). Total Simmons Fall Scale indicates No Risk (0-24 pts). Assessment: 18:31 General: Appears in no apparent distress. comfortable, Behavior is calm, cooperative, jd3 appropriate for age. Pain: Complains of pain in right ear, left ear and right eye Quality of pain is described as sharp. Neuro: Nguyen Agitation-Sedation Scale (RASS): 0 - Alert and Calm Level of Consciousness is awake, alert, obeys commands, Oriented to person, place, time, situation. Cardiovascular: Capillary refill < 3 seconds Patient's skin is warm and dry. Respiratory: Airway is patent Respiratory effort is even, unlabored, Respiratory pattern is regular, symmetrical, Denies cough, shortness of breath. GI: No signs and/or symptoms were reported involving the gastrointestinal system. : No signs and/or symptoms were reported regarding the genitourinary system. EENT: Tympanic membrane clear on left ear and right ear Eyes are tearing on right eye Sclera/Cornea are reddened in right eye Reports pain in right eye, right ear and left ear. Derm: Skin is intact, Skin is dry, Skin is normal, Skin temperature is warm. Musculoskeletal: No signs and/or symptoms reported regarding the musculoskeletal system. 18:52 Reassessment: Patient appears in no apparent distress at this time. Patient and/or jd3 family updated on plan of care and expected duration. Pain level reassessed. Patient is alert, oriented x 3, equal unlabored respirations, skin warm/dry/pink. awaiting eye exam. 19:20 General: Appears uncomfortable, obese, Behavior is calm, cooperative, appropriate for tw5 age. Neuro: No deficits noted. Level of Consciousness is awake, alert, obeys commands, Oriented to person, place, time, situation. EENT: Eyes are tearing on outer aspect of conjuctiva of right eye, iris of right eye and inner aspect of conjuctiva of right eye. Vital Signs: 17:45 BP 114 / 67; Pulse 110; Resp 16; Temp 97.9; Weight 165.56 kg; Height 5 ft. 5 in. iw (165.10 cm); 17:45 Body Mass Index 60.74 (165.56 kg, 165.10 cm) iw Visual Acuity: 18:31 Left Eye Visual acuity 20/25, Pupil size 4 mm, Normal, React To Light, Reactive To jd3 Accomodation; Right Eye Visual acuity 20/30, Pupil size 4 mm, Normal, React To Light, Reactive To Accomodation; Both Eyes Visual acuity 20/20; With Lenses; ED Course: 17:18 Patient arrived in ED. ds1 17:40 Darrin Kramer NP is PHCP. pm1 17:40 Nelda Ramirez MD is Attending Physician. pm1 17:46 Triage completed. iw 17:48 Arm band placed on. iw 17:49 Berry Conti RN is Primary Nurse. jd3 18:33 Patient has correct armband on for positive identification. Bed in low position. Call jd3 light in reach. Side rails up X 1. Adult w/ patient. Pulse ox on. NIBP on. 19:02 Primary Nurse role handed off by Berry Conti RN tw5 19:02 Page Mercer is Primary Nurse. tw5 19:46 No provider procedures requiring assistance completed. Patient did not have IV access tw5 during this emergency room visit. Administered Medications: 18:29 Drug: Tetanus-Diphtheria Toxoid Adult 0.5 ml {Table Games Supervisor: [place]. Exp: jd3 10/26/2023. Lot #: [id number]. } Route: IM; Site: left deltoid; 19:02 Follow up: Response: No adverse reaction jd3 18:30 Drug: [place] (HYDROcodone-acetaminophen) (7.5 mg-325 mg) 1 tabs Route: PO; jd3 19:03 Follow up: Response: No adverse reaction; RASS: Alert and Calm (0) jd3 18:30 Drug: Tetracaine Drops 0.5 % 1 drops {Note: at bedside to be administered by provider jhorace with eye exam..} Route: Ophthalmic; Site: right eye; 19:22 Drug: Flexeril (cyclobenzaprine) 10 mg Route: PO; tw5 19:46 Follow up: Response: No adverse reaction; RASS: Alert and Calm (0) tw5 19:23 Drug: Lidoderm Patch 5 % (700 mg/patch) 1 patches Route: Topical; Site: affected area; tw5 19:46 Follow up: Response: No adverse reaction; Pain is decreased tw5 Outcome: 19:26 Discharge ordered by MD. pm1 19:46 Discharged to home ambulatory, with family. tw5 :46 Condition: good :46 Discharge instructions given to patient, Instructed on discharge instructions, follow up and referral plans. medication usage, Demonstrated understanding of instructions, follow-up care, medications, Prescriptions given X 2. :47 Patient left the ED. tw5 Signatures: Yanelis Herbert ds1 Arabella Jiménez RN RN iw Darrin Kramer NP CERTIFIED FLIGHT INSTRUCTOR pm1 Berry Conti RN RN Page Brooks tw5
[2021-12-20 21:41] VITALS: BP 114/67; TEMP 97.9
== END 2021-12-20 19:47 | disposition home or self-care (01) ==
LOC: ER 17:17
DX: S05.01XA Injury of conjunctiva and corneal abrasion without foreign body, right eye, initial encounter (principal); M54.41 Lumbago with sciatica, right side; H92.03 Otalgia, bilateral; I10 Essential (primary) hypertension; F41.9 Anxiety disorder, unspecified; F32.A Depression, unspecified; E11.9 Type 2 diabetes mellitus without complications; Z23 Encounter for immunization; Z88.8 Allergy status to other drugs, medicaments and biological substances
CPT/HCPCS: 90471; 90714; 99283

== ENCOUNTER 2023-12-22 11:04 | Emergency (ER) | payer SELFPAY ==
--- OUTSIDE RECORDS SUMMARY | 2023-12-22 11:09 | XMS REPORT | Continuity of Care Document ---
Author Name Unknown Address [address] [place] [address] [facility] Address [address] [place] [address] Care Team Providers Care Record Pressman Name Role Phone Ted DUTTON, [facility] Primary Care Physician [phone] Allergies, Adverse Reactions, Alerts Allergy Name Allergy Type Status Severity Reaction(s) Onset Date Inactive Date Treating Clinician Comments Source n Propensi ty to adverse reaction to drug Active 6-17 00:00: 00 hydroCHL OROthiaz buzz - Oral Propensi ty to adverse reaction to drug Active 3-03 00:00: 00 Hydrochl orothiaz buzz Propensi ty to adverse reaction to drug Active 8-04 00:00: 00 Medications Ordered Medication Name Filled Medication Name Start Date Stop Date Current Medication? Ordering Clinician Indication Dosage Frequency Signature (SIG) Comments Components Source TAKE 1 TABLET DAILY. 2021-08 2-14 00:00: 00 No Dose Unknown 2021-08 2-14 00:00: 00 No TAKE 1 TABLET DAILY. 9-28 00:00: 00 No TAKE 1 TABLET DAILY. -28 00:00: 00 No TAKE 1 TABLET DAILY. - 00:00: 00 No TAKE 1 TABLET DAILY. - 00:00: 00 No TAKE 1 TABLET DAILY. -23 00:00: 00 No TAKE TWO (2) TABLET(S) BY MOUTH EVERY SIX HOURS NEEDED FOR PAIN. 0 8-15 00:00: 00 No TAKE TWO (2) TABLET(S) BY MOUTH EVERY SIX HOURS NEEDED FOR PAIN. 0 8-15 00:00: 00 No TAKE TWO (2) TABLET(S) BY MOUTH EVERY SIX HOURS NEEDED FOR PAIN. 815 00:00: 00 No ProAir HFA 90 mcg/actuati on aerosol inhaler 03-06 00:00: 00 No 2mcg/ac tuation ProAir HFA 90 mcg/actuati on aerosol inhaler 03-06 00:00: 00 No 2mcg/ac tuation Dose Unknown 03-06 00:00: 00 No lisinopril 40 mg tablet 03-04 00:00: 00 No 1mg TAKE 1 TABLET DAILY. 03-04 00:00: 00 No amoxicillin 875 mg-potassiu m clavulanate 125 mg tablet 03-04 00:00: 00 No 1mg metformin ER 1,000 mg 24 hr tablet,exte nded release 03-04 00:00: 00 No 1mg lovastatin 10 mg tablet 03-04 00:00: 00 No 1mg prednisone 20 mg tablet 03-04 00:00: 00 No mg TAKE 1 TABLET DAILY. 03-04 00:00: 00 No TAKE 1 TABLET DAILY. 03-04 00:00: 00 No amoxicillin 875 mg-potassiu m clavulanate 125 mg tablet 03-04 00:00: 00 No 1mg metformin ER 1,000 mg 24 hr tablet,exte nded release 03-04 00:00: 00 No 1mg lovastatin 10 mg tablet 03-04 00:00: 00 No 1mg prednisone 20 mg tablet 03-04 00:00: 00 No mg TAKE 1 TABLET DAILY. 03-04 00:00: 00 No TAKE 1 TABLET DAILY. 03-04 00:00: 00 No TAKE 1 TABLET DAILY. 03-04 00:00: 00 No Dose Unknown 03-04 00:00: 00 No Dose Unknown 03-04 00:00: 00 No Dose Unknown 03-04 00:00: 00 No lisinopril 40 mg tablet 03-04 00:00: 00 No 1mg glipizide 10 mg tablet 0 03-04 00:00: 00 No 1mg amoxicillin 875 mg-potnatalieiu m clavulanate 125 mg tablet 03-04 00:00: 00 No 1mg metformin ER 1,000 mg 24 hr tablet,exte nded release 03-04 00:00: 00 No 1mg lovastatin 10 mg tablet 03-04 00:00: 00 No 1mg prednisone 20 mg tablet 03-04 00:00: 00 No mg cyclobenzap rine 10 mg tablet 01-31 00:00: 00 No 1mg cyclobenzap rine 10 mg tablet 01-31 00:00: 00 No 1mg Dose Unknown 01-31 00:00: 00 No cyclobenzap rine 10 mg tablet 01-31 00:00: 00 No 1mg lisinopril 40 mg tablet 12-05 00:00: 00 No 1mg TAKE 1 TABLET DAILY. 12-05 00:00: 00 No cyclobenzap rine 10 mg tablet 12-05 00:00: 00 No 1mg lovastatin 10 mg tablet 12-05 00:00: 00 No 1mg Dose Unknown 12-05 00:00: 00 No Dose Unknown 12-05 00:00: 00 No Dose Unknown 12-05 00:00: 00 No TAKE 1 TABLET DAILY. 12-05 00:00: 00 No TAKE 1 TABLET DAILY. 12-05 00:00: 00 No cyclobenzap rine 10 mg tablet 12-05 00:00: 00 No 1mg lovastatin 10 mg tablet 12-05 00:00: 00 No 1mg Dose Unknown 12-05 00:00: 00 No Dose Unknown 12-05 00:00: 00 No Dose Unknown 12-05 00:00: 00 No lisinopril 40 mg tablet - 00:00: 00 No 1mg glipizide 10 mg tablet 2022-0 4-21 00:00: 00 No 1mg cyclobenzap rine 10 mg tablet 2022-0 4-21 00:00: 00 No 1mg lovastatin 10 mg tablet 2022-0 4-21 00:00: 00 No 1mg Dose Unknown 2022-0 4-21 00:00: 00 No Dose Unknown 2022-0 4-21 00:00: 00 No Dose Unknown 2022-0 4-21 00:00: 00 No TAKE 1 TABLET DAILY. 2022-0 4-21 00:00: 00 No TAKE 1 TABLET DAILY. 2022-0 4-21 00:00: 00 No TAKE 1 TABLET DAILY. 2022-0 4-21 00:00: 00 No Dose Unknown 2022-0 4-21 00:00: 00 No Dose Unknown 2022-0 4-21 00:00: 00 No Dose Unknown 2022-0 4-21 00:00: 00 No Dose Unknown 2022-0 4-21 00:00: 00 No Dose Unknown 2022-0 3-03 00:00: 00 No Dose Unknown 2022-0 3-03 00:00: 00 No Dose Unknown 2022-0 3-03 00:00: 00 No Dose Unknown 2022-0 3-03 00:00: 00 No Dose Unknown 2022-0 3-03 00:00: 00 No Dose Unknown 2022-0 3-03 00:00: 00 No Dose Unknown 2022-0 3-03 00:00: 00 No Dose Unknown 2022-0 3-03 00:00: 00 No Dose Unknown 2022-0 3-03 00:00: 00 No Dose Unknown 2022-0 3-03 00:00: 00 No Dose Unknown 2022-0 3-03 00:00: 00 No Dose Unknown 2022-0 3-03 00:00: 00 No Dose Unknown 2022-0 3-03 00:00: 00 No Dose Unknown 2022-0 3-03 00:00: 00 No Dose Unknown 2022-0 3-03 00:00: 00 No Dose Unknown 2022-0 3-03 00:00: 00 No Dose Unknown 2022-0 2-03 00:00: 00 No Dose Unknown 2022-0 2-03 00:00: 00 No Dose Unknown 2022-0 2-03 00:00: 00 No Dose Unknown 2022-0 2- 00:00: 00 No Dose Unknown 0 - 00:00: 00 No Dose Unknown 2021-0 - 00:00: 00 No Dose Unknown 0 09-16 00:00: 00 No Dose Unknown 0 09-16 00:00: 00 No Dose Unknown 0 09-16 00:00: 00 No Dose Unknown 0 09-16 00:00: 00 No Dose Unknown 0 09-16 00:00: 00 No Dose Unknown 0 09-16 00:00: 00 No Dose Unknown 0 09-16 00:00: 00 No Dose Unknown 0 09-16 00:00: 00 No Dose Unknown 0 09-16 00:00: 00 No Dose Unknown 0 09-16 00:00: 00 No glipizide 10 mg tablet 2020-08 00:00: 00 No 1mg glipizide 10 mg tablet 2020-08 00:00: 00 No 1mg glipizide 10 mg tablet 2020-08 00:00: 00 No 1mg glipizide 10 mg tablet 2020-08 00:00: 00 No 1mg glipizide 10 mg tablet 2020-08 0 00:00: 00 No 1mg TAKE 1 TABLET DAILY. 2020-08 0 00:00: 00 No TAKE 1 TABLET DAILY. 2020-08 0 00:00: 00 No TAKE 1 TABLET DAILY. 2020-08 0 00:00: 00 No lisinopril 40 mg tablet 2020-08 0- 00:00: 00 No 1mg metformin ER 1,000 mg 24 hr tablet,exte nded release 2020-08 0- 00:00: 00 No 1mg cyclobenzap rine 10 mg tablet 2020-08 0- 00:00: 00 No 1mg lisinopril 40 mg tablet 2020-08 0- 00:00: 00 No 1mg metformin ER 1,000 mg 24 hr tablet,exte nded release 2020-08 0- 00:00: 00 No 1mg cyclobenzap rine 10 mg tablet 2020-08 0 00:00: 00 No 1mg TAKE 1 TABLET DAILY. 2020-08 0- 00:00: 00 No metformin ER 1,000 mg 24 hr tablet,exte nded release 2020-08 0 00:00: 00 No 1mg cyclobenzap rine 10 mg tablet 2020-08 0 00:00: 00 No 1mg TAKE 1 TABLET DAILY. 2020-08 0 00:00: 00 No cyclobenzap rine 10 mg tablet 2020-08 0 00:00: 00 No 1mg Dose Unknown 2020-08 00:00: 00 No lisinopril 30 mg tablet 04-17 00:00: 00 No 1mg lisinopril 40 mg tablet 04-17 00:00: 00 No 1mg metformin ER 1,000 mg 24 hr tablet,exte nded release 04-17 00:00: 00 No 1mg lisinopril 30 mg tablet 04-17 00:00: 00 No 1mg lisinopril 40 mg tablet 04-17 00:00: 00 No 1mg metformin ER 1,000 mg 24 hr tablet,exte nded release 04-17 00:00: 00 No 1mg TAKE 1 TABLET DAILY. 04-17 00:00: 00 No metformin ER 1,000 mg 24 hr tablet,exte nded release 04-17 00:00: 00 No 1mg TAKE 1 TABLET DAILY. 04-17 00:00: 00 No metformin ER 1,000 mg 24 hr tablet,exte nded release 04-17 00:00: 00 No 1mg metformin 500 mg tablet 04-03 00:00: 00 No 1mg metformin 500 mg tablet 04-03 00:00: 00 No 1mg metformin 500 mg tablet 04-03 00:00: 00 No 1mg Dose Unknown 04-03 00:00: 00 No lisinopril 20 mg tablet 8 00:00: 00 No 1mg prednisone 20 mg tablet 8 00:00: 00 No 1mg Dose Unknown 03-20 00:00: 00 No cyclobenzap rine 10 mg tablet 03-20 00:00: 00 No 1mg lisinopril 20 mg tablet 03-20 00:00: 00 No 1mg prednisone 20 mg tablet 03-20 00:00: 00 No 1mg Dose Unknown 03-20 00:00: 00 No cyclobenzap rine 10 mg tablet 0 03-20 00:00: 00 No 1mg lisinopril 20 mg tablet 03-20 00:00: 00 No 1mg prednisone 20 mg tablet 03-20 00:00: 00 No 1mg Dose Unknown 03-20 00:00: 00 No Dose Unknown 03-20 00:00: 00 No lisinopril 20 mg tablet 03-20 00:00: 00 No 1mg prednisone 20 mg tablet 03-20 00:00: 00 No 1mg ibuprofen 800 mg tablet 03-20 00:00: 00 No 1mg cyclobenzap rine 10 mg tablet 03-20 00:00: 00 No 1mg Vital Signs Vital Name Observation Time Observation Value Comments S ource BP Systolic 2022-07-30 15:02:00 127 mm[Hg] BP Diastolic 2022-07-30 15:02:00 80 mm[Hg] Weight Measured 2022-07-30 15:02:00 341.60 pounds Height Measured 2022-07-30 15:02:00 65.00 inches Body Temperature 2022-07-30 15:02:00 97.20 degrees Heart Rate 2022-07-30 15:02:00 98.00 /min Respiratory Rate 2022-07-30 15:02:00 19.00 /min BP Systolic 2022-07-02 15:55:00 120 mm[Hg] BP Diastolic 2022-07-02 15:55:00 78 mm[Hg] Weight Measured 2022-07-02 15:55:00 336.80 pounds Height Measured 2022-07-02 15:55:00 65.00 inches Body Temperature 2022-07-02 15:55:00 98.20 degrees Heart Rate 2022-07-02 15:55:00 90.00 /min Respiratory Rate 2022-07-02 15:55:00 BP Systolic 2022-05-08 15:09:00 115 mm[Hg] BP Diastolic 2022-05-08 15:09:00 67 mm[Hg] Weight Measured 2022-05-08 15:09:00 327.80 pounds Height Measured 2022-05-08 15:09:00 65.00 inches Body Temperature 2022-05-08 15:09:00 98.40 degrees Heart Rate 2022-05-08 15:09:00 110.00 /min Respiratory Rate 2022-05-08 15:09:00 20.00 /min BP Systolic 2021-12-05 14:40:00 123 mm[Hg] BP Diastolic 2021-12-05 14:40:00 66 mm[Hg] Weight Measured 2021-12-05 14:40:00 365.00 pounds Height Measured 2021-12-05 14:40:00 65.00 inches Body Temperature 2021-12-05 14:40:00 98.70 degrees Heart Rate 2021-12-05 14:40:00 101.00 /min Respiratory Rate 2021-12-05 14:40:00 21.00 /min BP Systolic 2021-09-16 14:11:00 117 mm[Hg] BP Diastolic 2021-09-16 14:11:00 69 mm[Hg] Weight Measured 2021-09-16 14:11:00 358.00 pounds Height Measured 2021-09-16 14:11:00 65.00 inches Body Temperature 2021-09-16 14:11:00 98.40 degrees Heart Rate 2021-09-16 14:11:00 122.00 /min Respiratory Rate 2021-09-16 14:11:00 24.00 /min BP Systolic 2021-06-26 13:15:00 96 mm[Hg] BP Diastolic 2021-06-26 13:15:00 67 mm[Hg] Weight Measured 2021-06-26 13:15:00 350.40 pounds Height Measured 2021-06-26 13:15:00 65.00 inches Body Temperature 2021-06-26 13:15:00 98.40 degrees Heart Rate 2021-06-26 13:15:00 109.00 /min Respiratory Rate 2021-06-26 13:15:00 18.00 /min BP Systolic 2021-06-25 13:37:00 103 mm[Hg] BP Diastolic 2021-06-25 13:37:00 57 mm[Hg] Weight Measured 2021-06-25 13:37:00 352.20 pounds Height Measured 2021-06-25 13:37:00 65.00 inches Body Temperature 2021-06-25 13:37:00 97.50 degrees Heart Rate 2021-06-25 13:37:00 120.00 /min Respiratory Rate 2021-06-25 13:37:00 BP Systolic 2021-06-12 14:47:00 129 mm[Hg] BP Diastolic 2021-06-12 14:47:00 79 mm[Hg] Weight Measured 2021-06-12 14:47:00 356.20 pounds Height Measured 2021-06-12 14:47:00 65.00 inches Body Temperature 2021-06-12 14:47:00 97.50 degrees Heart Rate 2021-06-12 14:47:00 116.00 /min Respiratory Rate 2021-06-12 14:47:00 24.00 /min BP Systolic 2021-05-22 14:17:00 127 mm[Hg] BP Diastolic 2021-05-22 14:17:00 86 mm[Hg] Weight Measured 2021-05-22 14:17:00 354.40 pounds Height Measured 2021-05-22 14:17:00 65.00 inches Body Temperature 2021-05-22 14:17:00 98.70 degrees Heart Rate 2021-05-22 14:17:00 104.00 /min Respiratory Rate 2021-05-22 14:17:00 BP Systolic 2021-04-17 14:55:00 121 mm[Hg] BP Diastolic 2021-04-17 14:55:00 78 mm[Hg] Weight Measured 2021-04-17 14:55:00 361.00 pounds Height Measured 2021-04-17 14:55:00 65.00 inches Body Temperature 2021-04-17 14:55:00 97.80 degrees Heart Rate 2021-04-17 14:55:00 108.00 /min Respiratory Rate 2021-04-17 14:55:00 BP Systolic 2021-04-17 14:26:00 121 mm[Hg] BP Diastolic 2021-04-17 14:26:00 78 mm[Hg] Weight Measured 2021-04-17 14:26:00 361.00 pounds Height Measured 2021-04-17 14:26:00 65.00 inches Body Temperature 2021-04-17 14:26:00 97.80 degrees Heart Rate 2021-04-17 14:26:00 108.00 /min Respiratory Rate 2021-04-17 14:26:00 BP Systolic 2021-04-03 14:24:00 148 mm[Hg] BP Diastolic 2021-04-03 14:24:00 84 mm[Hg] Weight Measured 2021-04-03 14:24:00 362.40 pounds Height Measured 2021-04-03 14:24:00 65.00 inches Body Temperature 2021-04-03 14:24:00 98.10 degrees Heart Rate 2021-04-03 14:24:00 Respiratory Rate 2021-04-03 14:24:00 BP Systolic 2021-03-20 15:41:00 144 mm[Hg] BP Diastolic 2021-03-20 15:41:00 78 mm[Hg] Weight Measured 2021-03-20 15:41:00 370.80 pounds Height Measured 2021-03-20 15:41:00 65.00 inches Body Temperature 2021-03-20 15:41:00 98.50 degrees Heart Rate 2021-03-20 15:41:00 85.00 /min Respiratory Rate 2021-03-20 15:41:00 Plan of Care Planned Activity Planned Date Details Comments Source Goal Plan of Care Note [code = 60244-9] Goal Plan of Care Note [code = 34445-3] Goal Plan of Care Note [code = 46097-5] Goal Plan of Care Note [code = 19087-4] Goal Plan of Care Note [code = 82090-5] Goal Plan of Care Note [code = 10502-2] Goal Plan of Care Note [code = 03397-4] Goal Plan of Care Note [code = 37339-7] Goal Plan of Care Note [code = 81181-2] Goal Plan of Care Note [code = 73624-7] Goal Plan of Care Note [code = 70408-8] Goal Plan of Care Note [code = 70172-4] Goal Plan of Care Note [code = 28334-4] Goal Plan of Care Note [code = 11570-6] Goal Plan of Care Note [code = 35437-9] Goal Plan of Care Note [code = 82438-4] Goal Plan of Care Note [code = 48579-7] Goal Plan of Care Note [code = 76057-5] Goal Plan of Care Note [code = 86640-0] Goal Plan of Care Note [code = 12547-4] Goal Plan of Care Note [code = 50712-3] Goal Plan of Care Note [code = 78473-1] Goal Plan of Care Note [code = 02693-1] Goal Plan of Care Note [code = 72915-0] Goal Plan of Care Note [code = 71317-2] Goal Plan of Care Note [code = 36571-6] Goal Plan of Care Note [code = 74891-4] Goal Plan of Care Note [code = 09042-0] Goal Plan of Care Note [code = 74169-2] Goal Plan of Care Note [code = 36926-0] Goal Plan of Care Note [code = 58492-2] Goal Plan of Care Note [code = 84164-7] Goal Plan of Care Note [code = 32453-5] Goal Plan of Care Note [code = 38824-2] Goal Plan of Care Note [code = 89781-5] Goal Plan of Care Note [code = 78971-2] Goal Plan of Care Note [code = 27691-2] Goal Plan of Care Note [code = 55009-5] Goal Plan of Care Note [code = 09340-4] Goal Plan of Care Note [code = 85966-9] Goal Plan of Care Note [code = 37563-7] Goal Plan of Care Note [code = 91649-2] Goal Plan of Care Note [code = 65480-2] Goal Plan of Care Note [code = 28187-0] Goal Plan of Care Note [code = 96555-0] Goal Plan of Care Note [code = 31006-4] Goal Plan of Care Note [code = 74677-4] Goal Plan of Care Note [code = 39877-2] Goal Plan of Care Note [code = 53872-4] Goal Plan of Care Note [code = 37686-2] Goal Plan of Care Note [code = 43724-6] Goal Plan of Care Note [code = 92914-6] Goal Plan of Care Note [code = 33974-8] Goal Plan of Care Note [code = 63686-3] Goal Plan of Care Note [code = 07134-1] Goal Plan of Care Note [code = 98950-5] Goal Plan of Care Note [code = 03451-1] Goal Plan of Care Note [code = 90151-3] Goal Plan of Care Note [code = 58692-2] Goal Plan of Care Note [code = 13492-2] Goal Plan of Care Note [code = 49998-7] Goal Plan of Care Note [code = 30413-4] Encounters Start Date/Time End Date/Time Encounter Type Admission Type Attending [facility] Care Department Encounter ID Source 2023-09-03 16:00:06 2023-09-03 16:00:06 Outpatient [place] [id number] Henry Aggarwal 2023-08-13 17:32:11 2023-08-13 17:32:11 [place]patient [place] [id number] Henry Aggarwal 2022-11-27 16:15:57 2022-11-27 16:15:57 [place]patient [place] [id number] Henry Aggarwal 2022-11-25 15:11:52 2022-11-25 15:11:52 [place]patient [place] [id number] Henry Aggarwal 2022-08-06 15:28:35 2022-08-06 15:28:35 Outpatient [place] [id number] Henry Aggarwal 2022-07-30 14:49:07 2022-07-30 14:49:07 Outpatient [place] [id number] Henry Aggarwal 2022-07-30 00:00:00 2022-07-30 00:00:00 Outpatient Visit [id number] 2022-07-02 15:43:12 2022-07-02 15:43:12 Outpatient [facility] [id number] Henry Aggarwal 2022-07-02 00:00:00 2022-07-02 00:00:00 Outpatient Visit [id number] 2022-05-08 00:00:00 2022-05-08 00:00:00 Outpatient Visit [id number] 2022-03-04 00:00:00 2022-03-04 00:00:00 Outpatient Visit [id number] Results Test Description Test Time Test Comments Results Result Co mments Source CULTURE, URINE 2022-11-30 19:04:35 SPECIMEN NUMBER: [id number] CULTURE, URINE SPECIMEN NUMBER: [id number] SPECIMEN COMMENT: URINE SOURCE: URINE REPORT STATUS: FINAL FINAL REPORT: 11/30/2022 <10,000 CFU/ML UROGENITAL [place] PRESENT NO COMMON PATHOGENS [facility] has important pathology staff changes effective 10/15/2022. New pathology staff will provide uninterrupted, excellent patient care and clinical consultation. See URL: [email or web address]. UNLESS OTHERWISE INDICATED, ALL TESTING PERFORMED AT [facility] [address] [place] [address] WOUND TREATMENT RN: ALTHEA VASQUES M.D. CLIA NUMBER [id number] [facility] [place]. [id number] LIPID [id number] 00:00:00* Test Item Value Reference Range Interpretation Comme nts CHOLESTEROL (test code = 2210) 121 MG/DL TRIGLYCERIDES (test code = 2232) 116 MG/DL HDL CHOLESTEROL (test code = 2220) 40 MG/DL CALC LDL CHOL (test code = 2237) 61 MG/DL RISK RATIO LDL/HDL (test cod e = 2238) 1.53 RATIO LIPID [id number] 00:00:00* Test Item Value Reference Range Interpretation Comme nts CHOLESTEROL (test code = 2210) 121 MG/DL TRIGLYCERIDES (test code = 2232) 116 MG/DL HDL CHOLESTEROL (test code = 2220) 40 MG/DL CALC LDL CHOL (test code = 2237) 61 MG/DL RISK RATIO LDL/HDL (test cod e = 2238) 1.53 RATIO LIPID [id number] 00:00:00* Test Item Value Reference Range Interpretation Comme nts CHOLESTEROL (test code = 2210) 121 MG/DL TRIGLYCERIDES (test code = 2232) 116 MG/DL HDL CHOLESTEROL (test code = 2220) 40 MG/DL CALC LDL CHOL (test code = 2237) 61 MG/DL RISK RATIO LDL/HDL (test cod e = 2238) 1.53 RATIO LIPID [id number] 00:00:00* Test Item Value Reference Range Interpretation Comme nts CHOLESTEROL (test code = 2210) 121 MG/DL TRIGLYCERIDES (test code = 2232) 116 MG/DL HDL CHOLESTEROL (test code = 2220) 40 MG/DL CALC LDL CHOL (test code = 2237) 61 MG/DL RISK RATIO LDL/HDL (test cod e = 2238) 1.53 RATIO LIPID [id number] 00:00:00* Test Item Value Reference Range Interpretation Comme nts CHOLESTEROL (test code = 2210) 121 MG/DL TRIGLYCERIDES (test code = 2232) 116 MG/DL HDL CHOLESTEROL (test code = 2220) 40 MG/DL CALC LDL CHOL (test code = 2237) 61 MG/DL RISK RATIO LDL/HDL (test cod e = 2238) 1.53 RATIO LIPID [id number] 00:00:00* Test Item Value Reference Range Interpretation Comme nts CHOLESTEROL (test code = 2210) 121 MG/DL TRIGLYCERIDES (test code = 2232) 116 MG/DL HDL CHOLESTEROL (test code = 2220) 40 MG/DL CALC LDL CHOL (test code = 2237) 61 MG/DL RISK RATIO LDL/HDL (test cod e = 2238) 1.53 RATIO COMPREHENSIVE METABOLIC [id number] 03:48:15* Test Item Value Reference Range Interpretation Comme nts GLUCOSE (test code = 2216) 108 MG/DL 70-99 H BUN (test code = 2207) 15 MG/DL 6-20 CREATININE (test code = 2213) 0.64 MG/DL 0.60-1.30 eGFR (2020 CKD-EPI) (test code = 60733) 124 ML/MIN/1.73 >60 CALC BUN/CREAT (test code = 2234) 23 RATIO 6-28 SODIUM (test code = 2230) 140 MEQ/L 133-146 POTASSIUM (test code = 2227) 4.3 MEQ/L 3.5-5.4 CHLORIDE (test code = 2214) 100 MEQ/L 95-107 CARBON DIOXIDE (test code = 2205) 24 MEQ/L 19-31 CALCIUM (test code = 2208) 10.4 MG/DL 8.5-10.5 PROTEIN, TOTAL (test code = 2228) 8.2 G/DL 6.1-8.3 ALBUMIN (test code = 2200) 4.7 G/DL 3.5-5.2 CALC GLOBULIN (test code = 224) 3.5 G/DL 1.9-3.7 CALC A/G RATIO (test code = 2233) 1.3 RATIO 1.0-2.6 BILIRUBIN, TOTAL (test code = 2206) 0.7 MG/DL See_Comment [Automated me ssage] The system which generated this result transmitted reference range: <=1.2. The reference range was not used to interpret this result as normal/abnormal. ALKALINE PHOSPHATASE (test code = 2203) 90 U/L 40-112 AST (test code = 221) 19 U/L 9-40 ALT (test code = 2219) 28 U/L 5-40 LIPID [id number] 03:48:15* Test Item Value Reference Range Interpretation Comme nts CHOLESTEROL (test code = 2210) 193 MG/DL <200 TRIGLYCERIDES (test code = 223) 107 MG/DL <150 HDL CHOLESTEROL (test code = 2220) 43 MG/DL >39 CALC LDL CHOL (test code = 2236) 129 MG/DL <100 H NOTE: CALCULATED LDL IS BASED ON KASEY-KUMAR METHOD WHICHINCLUDES ADJUSTABLE TRIGLYCERIDE:VLDL CHOLESTEROL RATIO.THIS FACTOR VARIES BY MEASURED TRIGLYCERIDE AND NON-HDLCHOLESTEROL CONCENTRATIONS WITH INCREASED CALCULATED LDL SEENIN HIGHER TRIGLYCERIDE OR LOWER NON-HDL SPECIMENS. FOR MOREINFORMATION, SEE CLIENT ANNOUNCEMENT AT [email or web address] RISK RATIO LDL/HDL (test code = 2238) 3.00 RATIO <3.22 HEMOGLOBIN [id number] 02:42:45* Test Item Value Reference Range Interpretation Comme nts HEMOGLOBIN A1c (test code = 23294) 6.1 % 4.2-5.6 H UNLESS OTHERWISE INDICATED, ALL TEST[facility]FORMED [facility] [address] [place] [address] WOUND TREATMENT RN: RICHY QUINTERO M.D. CLIA NUMBER [id number] [facility] [place]. [id number] LIPID [id number] 00:00:00* Test Item Value Reference Range Interpretation Comme nts CHOLESTEROL (test code = 2210) 193 MG/DL TRIGLYCERIDES (test code = 2232) 107 MG/DL HDL CHOLESTEROL (test code = 2220) 43 MG/DL CALC LDL CHOL (test code = 2237) 129 MG/DL RISK RATIO LDL/HDL (test cod e = 2238) 3.00 RATIO LIPID [id number] 00:00:00* Test Item Value Reference Range Interpretation Comme nts CHOLESTEROL (test code = 2210) 193 MG/DL TRIGLYCERIDES (test code = 2232) 107 MG/DL HDL CHOLESTEROL (test code = 2220) 43 MG/DL CALC LDL CHOL (test code = 2237) 129 MG/DL RISK RATIO LDL/HDL (test cod e = 2238) 3.00 RATIO HEMOGLOBIN [id number] 00:00:00* Test Item Value Reference Range Interpretation Comme nts HEMOGLOBIN A1c (test code = 48121) 6.1 % HEMOGLOBIN [id number] 00:00:00* Test Item Value Reference Range Interpretation Comme nts HEMOGLOBIN A1c (test code = 06521) 6.1 % HEMOGLOBIN [id number] 00:00:00* Test Item Value Reference Range Interpretation Comme nts HEMOGLOBIN A1c (test code = 22201) 6.1 % COMPREHENSIVE METABOLIC [id number] 00:00:00* Test Item Value Reference Range Interpretation Comme nts GLUCOSE (test code = 2217) 108 MG/DL BUN (test code = 2208) 15 MG/DL CREATININE (test code = 2214) 0.64 MG/DL eGFR (2020 CKD-EPI) (test code = 53995) 124 ML/MIN/1.73 CALC BUN/CREAT (test code = 2235) 23 RATIO SODIUM (test code = 2231) 140 MEQ/L POTASSIUM (test code = 2228) 4.3 MEQ/L CHLORIDE (test code = 2215) 100 MEQ/L CARBON DIOXIDE (test code = 2206) 24 MEQ/L CALCIUM (test code = 2209) 10.4 MG/DL PROTEIN, TOTAL (test code = 2229) 8.2 G/DL ALBUMIN (test code = 2201) 4.7 G/DL CALC GLOBULIN (test code = 2240) 3.5 G/DL CALC A/G RATIO (test code = 2234) 1.3 RATIO BILIRUBIN, TOTAL (test code = 2207) 0.7 MG/DL ALKALINE PHOSPHATASE (test code = 2204) 90 U/L AST (test code = 2218) 19 U/L ALT (test code = 2219) 28 U/L COMPREHENSIVE METABOLIC [id number] 00:00:00* Test Item Value Reference Range Interpretation Comme nts GLUCOSE (test code = 2217) 108 MG/DL BUN (test code = 2208) 15 MG/DL CREATININE (test code = 2214) 0.64 MG/DL eGFR (2020 CKD-EPI) (test code = 79569) 124 ML/MIN/1.73 CALC BUN/CREAT (test code = 2235) 23 RATIO SODIUM (test code = 2231) 140 MEQ/L POTASSIUM (test code = 2228) 4.3 MEQ/L CHLORIDE (test code = 2215) 100 MEQ/L CARBON DIOXIDE (test code = 2206) 24 MEQ/L CALCIUM (test code = 2209) 10.4 MG/DL PROTEIN, TOTAL (test code = 2229) 8.2 G/DL ALBUMIN (test code = 2201) 4.7 G/DL CALC GLOBULIN (test code = 2240) 3.5 G/DL CALC A/G RATIO (test code = 2234) 1.3 RATIO BILIRUBIN, TOTAL (test code = 2207) 0.7 MG/DL ALKALINE PHOSPHATASE (test code = 2204) 90 U/L AST (test code = 2218) 19 U/L ALT (test code = 2219) 28 U/L LIPID [id number] 00:00:00* Test Item Value Reference Range Interpretation Comme nts CHOLESTEROL (test code = 2210) 193 MG/DL TRIGLYCERIDES (test code = 2232) 107 MG/DL HDL CHOLESTEROL (test code = 2220) 43 MG/DL CALC LDL CHOL (test code = 2237) 129 MG/DL RISK RATIO LDL/HDL (test cod e = 2238) 3.00 RATIO LIPID [id number] 00:00:00* Test Item Value Reference Range Interpretation Comme nts CHOLESTEROL (test code = 2210) 193 MG/DL TRIGLYCERIDES (test code = 2232) 107 MG/DL HDL CHOLESTEROL (test code = 2220) 43 MG/DL CALC LDL CHOL (test code = 2237) 129 MG/DL RISK RATIO LDL/HDL (test cod e = 2238) 3.00 RATIO HEMOGLOBIN [id number] 00:00:00* Test Item Value Reference Range Interpretation Comme nts HEMOGLOBIN A1c (test code = 95859) 6.1 % HEMOGLOBIN [id number] 00:00:00* Test Item Value Reference Range Interpretation Comme nts HEMOGLOBIN A1c (test code = 88295) 6.1 % HEMOGLOBIN [id number] 00:00:00* Test Item Value Reference Range Interpretation Comme nts HEMOGLOBIN A1c (test code = 80500) 6.1 % COMPREHENSIVE METABOLIC [id number] 00:00:00* Test Item Value Reference Range Interpretation Comme nts GLUCOSE (test code = 2217) 108 MG/DL BUN (test code = 2208) 15 MG/DL CREATININE (test code = 2214) 0.64 MG/DL eGFR (2020 CKD-EPI) (test code = 87886) 124 ML/MIN/1.73 CALC BUN/CREAT (test code = 2235) 23 RATIO SODIUM (test code = 2231) 140 MEQ/L POTASSIUM (test code = 2228) 4.3 MEQ/L CHLORIDE (test code = 2215) 100 MEQ/L CARBON DIOXIDE (test code = 2206) 24 MEQ/L CALCIUM (test code = 2209) 10.4 MG/DL PROTEIN, TOTAL (test code = 2229) 8.2 G/DL ALBUMIN (test code = 2201) 4.7 G/DL CALC GLOBULIN (test code = 2240) 3.5 G/DL CALC A/G RATIO (test code = 2234) 1.3 RATIO BILIRUBIN, TOTAL (test code = 2207) 0.7 MG/DL ALKALINE PHOSPHATASE (test code = 2204) 90 U/L AST (test code = 2218) 19 U/L ALT (test code = 2219) 28 U/L COMPREHENSIVE METABOLIC [id number] 00:00:00* Test Item Value Reference Range Interpretation Comme nts GLUCOSE (test code = 2217) 108 MG/DL BUN (test code = 2208) 15 MG/DL CREATININE (test code = 2214) 0.64 MG/DL eGFR (2020 CKD-EPI) (test code = 98136) 124 ML/MIN/1.73 CALC BUN/CREAT (test code = 2235) 23 RATIO SODIUM (test code = 2231) 140 MEQ/L POTASSIUM (test code = 2228) 4.3 MEQ/L CHLORIDE (test code = 2215) 100 MEQ/L CARBON DIOXIDE (test code = 2206) 24 MEQ/L CALCIUM (test code = 2209) 10.4 MG/DL PROTEIN, TOTAL (test code = 2229) 8.2 G/DL ALBUMIN (test code = 2201) 4.7 G/DL CALC GLOBULIN (test code = 2240) 3.5 G/DL CALC A/G RATIO (test code = 2234) 1.3 RATIO BILIRUBIN, TOTAL (test code = 2207) 0.7 MG/DL ALKALINE PHOSPHATASE (test code = 2204) 90 U/L AST (test code = 2218) 19 U/L ALT (test code = 2219) 28 U/L LIPID [id number] 00:00:00* Test Item Value Reference Range Interpretation Comme nts CHOLESTEROL (test code = 2210) 193 MG/DL TRIGLYCERIDES (test code = 2232) 107 MG/DL HDL CHOLESTEROL (test code = 2220) 43 MG/DL CALC LDL CHOL (test code = 2237) 129 MG/DL RISK RATIO LDL/HDL (test cod e = 2238) 3.00 RATIO LIPID [id number] 00:00:00* Test Item Value Reference Range Interpretation Comme nts CHOLESTEROL (test code = 2210) 193 MG/DL TRIGLYCERIDES (test code = 2232) 107 MG/DL HDL CHOLESTEROL (test code = 2220) 43 MG/DL CALC LDL CHOL (test code = 2237) 129 MG/DL RISK RATIO LDL/HDL (test cod e = 2238) 3.00 RATIO HEMOGLOBIN [id number] 00:00:00* Test Item Value Reference Range Interpretation Comme nts HEMOGLOBIN A1c (test code = 36072) 6.1 % HEMOGLOBIN [id number] 00:00:00* Test Item Value Reference Range Interpretation Comme nts HEMOGLOBIN A1c (test code = 90923) 6.1 % HEMOGLOBIN [id number] 00:00:00* Test Item Value Reference Range Interpretation Comme nts HEMOGLOBIN A1c (test code = 52667) 6.1 % COMPREHENSIVE METABOLIC [id number] 00:00:00* Test Item Value Reference Range Interpretation Comme nts GLUCOSE (test code = 2217) 108 MG/DL BUN (test code = 2208) 15 MG/DL CREATININE (test code = 2214) 0.64 MG/DL eGFR (2020 CKD-EPI) (test code = 89669) 124 ML/MIN/1.73 CALC BUN/CREAT (test code = 2235) 23 RATIO SODIUM (test code = 2231) 140 MEQ/L POTASSIUM (test code = 2228) 4.3 MEQ/L CHLORIDE (test code = 2215) 100 MEQ/L CARBON DIOXIDE (test code = 2206) 24 MEQ/L CALCIUM (test code = 2209) 10.4 MG/DL PROTEIN, TOTAL (test code = 2229) 8.2 G/DL ALBUMIN (test code = 2201) 4.7 G/DL CALC GLOBULIN (test code = 2240) 3.5 G/DL CALC A/G RATIO (test code = 2234) 1.3 RATIO BILIRUBIN, TOTAL (test code = 2207) 0.7 MG/DL ALKALINE PHOSPHATASE (test code = 2204) 90 U/L AST (test code = 2218) 19 U/L ALT (test code = 2219) 28 U/L LIPID [id number] 00:00:00* Test Item Value Reference Range Interpretation Comme nts CHOLESTEROL (test code = 2210) 193 MG/DL TRIGLYCERIDES (test code = 2232) 107 MG/DL HDL CHOLESTEROL (test code = 2220) 43 MG/DL CALC LDL CHOL (test code = 2237) 129 MG/DL RISK RATIO LDL/HDL (test cod e = 2238) 3.00 RATIO HEMOGLOBIN [id number] 00:00:00* Test Item Value Reference Range Interpretation Comme nts HEMOGLOBIN A1c (test code = 35751) 6.1 % HEMOGLOBIN [id number] 00:00:00* Test Item Value Reference Range Interpretation Comme nts HEMOGLOBIN A1c (test code = 82914) 6.1 % COMPREHENSIVE METABOLIC [id number] 00:00:00* Test Item Value Reference Range Interpretation Comme nts GLUCOSE (test code = 2217) 108 MG/DL BUN (test code = 2208) 15 MG/DL CREATININE (test code = 2214) 0.64 MG/DL eGFR (2020 CKD-EPI) (test code = 24369) 124 ML/MIN/1.73 CALC BUN/CREAT (test code = 2235) 23 RATIO SODIUM (test code = 2231) 140 MEQ/L POTASSIUM (test code = 2228) 4.3 MEQ/L CHLORIDE (test code = 2215) 100 MEQ/L CARBON DIOXIDE (test code = 2206) 24 MEQ/L CALCIUM (test code = 2209) 10.4 MG/DL PROTEIN, TOTAL (test code = 2229) 8.2 G/DL ALBUMIN (test code = 2201) 4.7 G/DL CALC GLOBULIN (test code = 2240) 3.5 G/DL CALC A/G RATIO (test code = 2234) 1.3 RATIO BILIRUBIN, TOTAL (test code = 2207) 0.7 MG/DL ALKALINE PHOSPHATASE (test code = 2204) 90 U/L AST (test code = 2218) 19 U/L ALT (test code = 2219) 28 U/L COMPREHENSIVE METABOLIC [id number] 00:00:00* Test Item Value Reference Range Interpretation Comme nts GLUCOSE (test code = 2217) 108 MG/DL BUN (test code = 2208) 15 MG/DL CREATININE (test code = 2214) 0.64 MG/DL eGFR (2020 CKD-EPI) (test code = 45884) 124 ML/MIN/1.73 CALC BUN/CREAT (test code = 2235) 23 RATIO SODIUM (test code = 2231) 140 MEQ/L POTASSIUM (test code = 2228) 4.3 MEQ/L CHLORIDE (test code = 2215) 100 MEQ/L CARBON DIOXIDE (test code = 2206) 24 MEQ/L CALCIUM (test code = 2209) 10.4 MG/DL PROTEIN, TOTAL (test code = 2229) 8.2 G/DL ALBUMIN (test code = 2201) 4.7 G/DL CALC GLOBULIN (test code = 2240) 3.5 G/DL CALC A/G RATIO (test code = 2234) 1.3 RATIO BILIRUBIN, TOTAL (test code = 2207) 0.7 MG/DL ALKALINE PHOSPHATASE (test code = 2204) 90 U/L AST (test code = 2218) 19 U/L ALT (test code = 2219) 28 U/L LIPID [id number] 00:00:00* Test Item Value Reference Range Interpretation Comme nts CHOLESTEROL (test code = 2210) 182 MG/DL TRIGLYCERIDES (test code = 2232) 131 MG/DL HDL CHOLESTEROL (test code = 2220) 41 MG/DL CALC LDL CHOL (test code = 2237) 116 MG/DL RISK RATIO LDL/HDL (test cod e = 2238) 2.83 RATIO LIPID [id number] 00:00:00* Test Item Value Reference Range Interpretation Comme nts CHOLESTEROL (test code = 2210) 182 MG/DL TRIGLYCERIDES (test code = 2232) 131 MG/DL HDL CHOLESTEROL (test code = 2220) 41 MG/DL CALC LDL CHOL (test code = 2237) 116 MG/DL RISK RATIO LDL/HDL (test cod e = 2238) 2.83 RATIO COMPREHENSIVE METABOLIC [id number] 00:00:00* Test Item Value Reference Range Interpretation Comme nts GLUCOSE (test code = 2217) 171 MG/DL BUN (test code = 2208) 13 MG/DL CREATININE (test code = 2214) 0.66 MG/DL eGFR AMER. (test cod e = 31515) 140 ML/MIN/1.73 eGFR NON- AMER. (test code = 78238) 121 ML/MIN/1.73 CALC BUN/CREAT (test code = 2235) 20 RATIO SODIUM (test code = 2231) 137 MEQ/L POTASSIUM (test code = 2228) 4.6 MEQ/L CHLORIDE (test code = 2215) 97 MEQ/L CARBON DIOXIDE (test code = 2206) 26 MEQ/L CALCIUM (test code = 2209) 10.1 MG/DL PROTEIN, TOTAL (test code = 2229) 8.1 G/DL ALBUMIN (test code = 2201) 4.8 G/DL CALC GLOBULIN (test code = 2240) 3.3 G/DL CALC A/G RATIO (test code = 2234) 1.5 RATIO BILIRUBIN, TOTAL (test code = 2207) 1.3 MG/DL ALKALINE PHOSPHATASE (test code = 2204) 85 U/L AST (test code = 2218) 46 U/L ALT (test code = 2219) 62 U/L COMPREHENSIVE METABOLIC [id number] 00:00:00* Test Item Value Reference Range Interpretation Comme nts GLUCOSE (test code = 2217) 171 MG/DL BUN (test code = 2208) 13 MG/DL CREATININE (test code = 2214) 0.66 MG/DL eGFR AMER. (test cod e = 98074) 140 ML/MIN/1.73 eGFR NON- AMER. (test code = 82309) 121 ML/MIN/1.73 CALC BUN/CREAT (test code = 2235) 20 RATIO SODIUM (test code = 2231) 137 MEQ/L POTASSIUM (test code = 2228) 4.6 MEQ/L CHLORIDE (test code = 2215) 97 MEQ/L CARBON DIOXIDE (test code = 2206) 26 MEQ/L CALCIUM (test code = 2209) 10.1 MG/DL PROTEIN, TOTAL (test code = 2229) 8.1 G/DL ALBUMIN (test code = 2201) 4.8 G/DL CALC GLOBULIN (test code = 2240) 3.3 G/DL CALC A/G RATIO (test code = 2234) 1.5 RATIO BILIRUBIN, TOTAL (test code = 2207) 1.3 MG/DL ALKALINE PHOSPHATASE (test code = 2204) 85 U/L AST (test code = 2218) 46 U/L ALT (test code = 2219) 62 U/L HEMOGLOBIN [id number] 00:00:00* Test Item Value Reference Range Interpretation Comme nts HEMOGLOBIN A1c (test code = 83212) 7.6 % HEMOGLOBIN [id number] 00:00:00* Test Item Value Reference Range Interpretation Comme nts HEMOGLOBIN A1c (test code = 46361) 7.6 % HEMOGLOBIN [id number] 00:00:00* Test Item Value Reference Range Interpretation Comme nts HEMOGLOBIN A1c (test code = 46773) 7.6 % LIPID [id number] 00:00:00* Test Item Value Reference Range Interpretation Comme nts CHOLESTEROL (test code = 2210) 182 MG/DL TRIGLYCERIDES (test code = 2232) 131 MG/DL HDL CHOLESTEROL (test code = 2220) 41 MG/DL CALC LDL CHOL (test code = 2237) 116 MG/DL RISK RATIO LDL/HDL (test cod e = 2238) 2.83 RATIO LIPID [id number] 00:00:00* Test Item Value Reference Range Interpretation Comme nts CHOLESTEROL (test code = 2210) 182 MG/DL TRIGLYCERIDES (test code = 2232) 131 MG/DL HDL CHOLESTEROL (test code = 2220) 41 MG/DL CALC LDL CHOL (test code = 2237) 116 MG/DL RISK RATIO LDL/HDL (test cod e = 2238) 2.83 RATIO COMPREHENSIVE METABOLIC [id number] 00:00:00* Test Item Value Reference Range Interpretation Comme nts GLUCOSE (test code = 2217) 171 MG/DL BUN (test code = 2208) 13 MG/DL CREATININE (test code = 2214) 0.66 MG/DL eGFR AMER. (test cod e = 71002) 140 ML/MIN/1.73 eGFR NON- AMER. (test code = 36739) 121 ML/MIN/1.73 CALC BUN/CREAT (test code = 2235) 20 RATIO SODIUM (test code = 2231) 137 MEQ/L POTASSIUM (test code = 2228) 4.6 MEQ/L CHLORIDE (test code = 2215) 97 MEQ/L CARBON DIOXIDE (test code = 2206) 26 MEQ/L CALCIUM (test code = 2209) 10.1 MG/DL PROTEIN, TOTAL (test code = 2229) 8.1 G/DL ALBUMIN (test code = 2201) 4.8 G/DL CALC GLOBULIN (test code = 2240) 3.3 G/DL CALC A/G RATIO (test code = 2234) 1.5 RATIO BILIRUBIN, TOTAL (test code = 2207) 1.3 MG/DL ALKALINE PHOSPHATASE (test code = 2204) 85 U/L AST (test code = 2218) 46 U/L ALT (test code = 2219) 62 U/L COMPREHENSIVE METABOLIC [id number] 00:00:00* Test Item Value Reference Range Interpretation Comme nts GLUCOSE (test code = 2217) 171 MG/DL BUN (test code = 2208) 13 MG/DL CREATININE (test code = 2214) 0.66 MG/DL eGFR AMER. (test cod e = 51622) 140 ML/MIN/1.73 eGFR NON- AMER. (test code = 39252) 121 ML/MIN/1.73 CALC BUN/CREAT (test code = 2235) 20 RATIO SODIUM (test code = 2231) 137 MEQ/L POTASSIUM (test code = 2228) 4.6 MEQ/L CHLORIDE (test code = 2215) 97 MEQ/L CARBON DIOXIDE (test code = 2206) 26 MEQ/L CALCIUM (test code = 2209) 10.1 MG/DL PROTEIN, TOTAL (test code = 2229) 8.1 G/DL ALBUMIN (test code = 2201) 4.8 G/DL CALC GLOBULIN (test code = 2240) 3.3 G/DL CALC A/G RATIO (test code = 2234) 1.5 RATIO BILIRUBIN, TOTAL (test code = 2207) 1.3 MG/DL ALKALINE PHOSPHATASE (test code = 2204) 85 U/L AST (test code = 2218) 46 U/L ALT (test code = 2219) 62 U/L HEMOGLOBIN [id number] 00:00:00* Test Item Value Reference Range Interpretation Comme nts HEMOGLOBIN A1c (test code = 88037) 7.6 % HEMOGLOBIN [id number] 00:00:00* Test Item Value Reference Range Interpretation Comme nts HEMOGLOBIN A1c (test code = 45227) 7.6 % HEMOGLOBIN [id number] 00:00:00* Test Item Value Reference Range Interpretation Comme nts HEMOGLOBIN A1c (test code = 84714) 7.6 % LIPID [id number] 00:00:00* Test Item Value Reference Range Interpretation Comme nts CHOLESTEROL (test code = 2210) 182 MG/DL TRIGLYCERIDES (test code = 2232) 131 MG/DL HDL CHOLESTEROL (test code = 2220) 41 MG/DL CALC LDL CHOL (test code = 2237) 116 MG/DL RISK RATIO LDL/HDL (test cod e = 2238) 2.83 RATIO LIPID [id number] 00:00:00* Test Item Value Reference Range Interpretation Comme nts CHOLESTEROL (test code = 2210) 182 MG/DL TRIGLYCERIDES (test code = 2232) 131 MG/DL HDL CHOLESTEROL (test code = 2220) 41 MG/DL CALC LDL CHOL (test code = 2237) 116 MG/DL RISK RATIO LDL/HDL (test cod e = 2238) 2.83 RATIO COMPREHENSIVE METABOLIC [id number] 00:00:00* Test Item Value Reference Range Interpretation Comme nts GLUCOSE (test code = 2217) 171 MG/DL BUN (test code = 2208) 13 MG/DL CREATININE (test code = 2214) 0.66 MG/DL eGFR AMER. (test cod e = 84838) 140 ML/MIN/1.73 eGFR NON- AMER. (test code = 28172) 121 ML/MIN/1.73 CALC BUN/CREAT (test code = 2235) 20 RATIO SODIUM (test code = 2231) 137 MEQ/L POTASSIUM (test code = 2228) 4.6 MEQ/L CHLORIDE (test code = 2215) 97 MEQ/L CARBON DIOXIDE (test code = 2206) 26 MEQ/L CALCIUM (test code = 2209) 10.1 MG/DL PROTEIN, TOTAL (test code = 2229) 8.1 G/DL ALBUMIN (test code = 2201) 4.8 G/DL CALC GLOBULIN (test code = 2240) 3.3 G/DL CALC A/G RATIO (test code = 2234) 1.5 RATIO BILIRUBIN, TOTAL (test code = 2207) 1.3 MG/DL ALKALINE PHOSPHATASE (test code = 2204) 85 U/L AST (test code = 2218) 46 U/L ALT (test code = 2219) 62 U/L COMPREHENSIVE METABOLIC [id number] 00:00:00* Test Item Value Reference Range Interpretation Comme nts GLUCOSE (test code = 2217) 171 MG/DL BUN (test code = 2208) 13 MG/DL CREATININE (test code = 2214) 0.66 MG/DL eGFR AMER. (test cod e = 96139) 140 ML/MIN/1.73 eGFR NON- AMER. (test code = 50854) 121 ML/MIN/1.73 CALC BUN/CREAT (test code = 2235) 20 RATIO SODIUM (test code = 2231) 137 MEQ/L POTASSIUM (test code = 2228) 4.6 MEQ/L CHLORIDE (test code = 2215) 97 MEQ/L CARBON DIOXIDE (test code = 2206) 26 MEQ/L CALCIUM (test code = 2209) 10.1 MG/DL PROTEIN, TOTAL (test code = 2229) 8.1 G/DL ALBUMIN (test code = 2201) 4.8 G/DL CALC GLOBULIN (test code = 2240) 3.3 G/DL CALC A/G RATIO (test code = 2234) 1.5 RATIO BILIRUBIN, TOTAL (test code = 2207) 1.3 MG/DL ALKALINE PHOSPHATASE (test code = 2204) 85 U/L AST (test code = 2218) 46 U/L ALT (test code = 2219) 62 U/L HEMOGLOBIN [id number] 00:00:00* Test Item Value Reference Range Interpretation Comme nts HEMOGLOBIN A1c (test code = 25937) 7.6 % HEMOGLOBIN [id number] 00:00:00* Test Item Value Reference Range Interpretation Comme nts HEMOGLOBIN A1c (test code = 02421) 7.6 % LIPID [id number] 00:00:00* Test Item Value Reference Range Interpretation Comme nts CHOLESTEROL (test code = 2210) 182 MG/DL TRIGLYCERIDES (test code = 2232) 131 MG/DL HDL CHOLESTEROL (test code = 2220) 41 MG/DL CALC LDL CHOL (test code = 2237) 116 MG/DL RISK RATIO LDL/HDL (test cod e = 2238) 2.83 RATIO COMPREHENSIVE METABOLIC [id number] 00:00:00* Test Item Value Reference Range Interpretation Comme nts GLUCOSE (test code = 2217) 171 MG/DL BUN (test code = 2208) 13 MG/DL CREATININE (test code = 2214) 0.66 MG/DL eGFR AMER. (test cod e = 67197) 140 ML/MIN/1.73 eGFR NON- AMER. (test code = 27921) 121 ML/MIN/1.73 CALC BUN/CREAT (test code = 2235) 20 RATIO SODIUM (test code = 2231) 137 MEQ/L POTASSIUM (test code = 2228) 4.6 MEQ/L CHLORIDE (test code = 2215) 97 MEQ/L CARBON DIOXIDE (test code = 2206) 26 MEQ/L CALCIUM (test code = 2209) 10.1 MG/DL PROTEIN, TOTAL (test code = 2229) 8.1 G/DL ALBUMIN (test code = 2201) 4.8 G/DL CALC GLOBULIN (test code = 2240) 3.3 G/DL CALC A/G RATIO (test code = 2234) 1.5 RATIO BILIRUBIN, TOTAL (test code = 2207) 1.3 MG/DL ALKALINE PHOSPHATASE (test code = 2204) 85 U/L AST (test code = 2218) 46 U/L ALT (test code = 2219) 62 U/L HEMOGLOBIN [id number] 00:00:00* Test Item Value Reference Range Interpretation Comme nts HEMOGLOBIN A1c (test code = 80156) 7.6 % HEMOGLOBIN [id number] 00:00:00* Test Item Value Reference Range Interpretation Comme nts HEMOGLOBIN A1c (test code = 76061) 7.6 % HEMOGLOBIN [id number] 00:00:00* Test Item Value Reference Range Interpretation Comme nts HEMOGLOBIN A1c (test code = 01833) 7.6 % LIPID [id number] 00:00:00* Test Item Value Reference Range Interpretation Comme nts CHOLESTEROL (test code = 2210) 177 MG/DL TRIGLYCERIDES (test code = 2232) 177 MG/DL HDL CHOLESTEROL (test code = 2220) 41 MG/DL CALC LDL CHOL (test code = 2237) 107 MG/DL RISK RATIO LDL/HDL (test cod e = 2238) 2.61 RATIO LIPID [id number] 00:00:00* Test Item Value Reference Range Interpretation Comme nts CHOLESTEROL (test code = 2210) 177 MG/DL TRIGLYCERIDES (test code = 2232) 177 MG/DL HDL CHOLESTEROL (test code = 2220) 41 MG/DL CALC LDL CHOL (test code = 2237) 107 MG/DL RISK RATIO LDL/HDL (test cod e = 2238) 2.61 RATIO COMPREHENSIVE METABOLIC [id number] 00:00:00* Test Item Value Reference Range Interpretation Comme nts GLUCOSE (test code = 2217) 194 MG/DL BUN (test code = 8) 14 MG/DL CREATININE (test code = 2214) 0.68 MG/DL eGFR AMER. (test cod e = 59187) 139 ML/MIN/1.73 eGFR NON- AMER. (test code = 01805) 120 ML/MIN/1.73 CALC BUN/CREAT (test code = 2235) 21 RATIO SODIUM (test code = 2231) 138 MEQ/L POTASSIUM (test code = 2228) 4.7 MEQ/L CHLORIDE (test code = 2215) 99 MEQ/L CARBON DIOXIDE (test code = 2206) 24 MEQ/L CALCIUM (test code = 2209) 10.4 MG/DL PROTEIN, TOTAL (test code = 2229) 7.7 G/DL ALBUMIN (test code = 2201) 4.6 G/DL CALC GLOBULIN (test code = 2240) 3.1 G/DL CALC A/G RATIO (test code = 2234) 1.5 RATIO BILIRUBIN, TOTAL (test code = 2207) 0.8 MG/DL ALKALINE PHOSPHATASE (test code = 2204) 96 U/L AST (test code = 2218) 38 U/L ALT (test code = 2219) 55 U/L COMPREHENSIVE METABOLIC [id number] 00:00:00* Test Item Value Reference Range Interpretation Comme nts GLUCOSE (test code = 2217) 194 MG/DL BUN (test code = 2208) 14 MG/DL CREATININE (test code = 2214) 0.68 MG/DL eGFR AMER. (test cod e = 22441) 139 ML/MIN/1.73 eGFR NON- AMER. (test code = 95148) 120 ML/MIN/1.73 CALC BUN/CREAT (test code = 2235) 21 RATIO SODIUM (test code = 2231) 138 MEQ/L POTASSIUM (test code = 2228) 4.7 MEQ/L CHLORIDE (test code = 2215) 99 MEQ/L CARBON DIOXIDE (test code = 2206) 24 MEQ/L CALCIUM (test code = 2209) 10.4 MG/DL PROTEIN, TOTAL (test code = 2229) 7.7 G/DL ALBUMIN (test code = 2201) 4.6 G/DL CALC GLOBULIN (test code = 2240) 3.1 G/DL CALC A/G RATIO (test code = 2234) 1.5 RATIO BILIRUBIN, TOTAL (test code = 2207) 0.8 MG/DL ALKALINE PHOSPHATASE (test code = 2204) 96 U/L AST (test code = 2218) 38 U/L ALT (test code = 2219) 55 U/L LIPID [id number] 00:00:00* Test Item Value Reference Range Interpretation Comme nts CHOLESTEROL (test code = 2210) 177 MG/DL TRIGLYCERIDES (test code = 2232) 177 MG/DL HDL CHOLESTEROL (test code = 2220) 41 MG/DL CALC LDL CHOL (test code = 2237) 107 MG/DL RISK RATIO LDL/HDL (test cod e = 2238) 2.61 RATIO LIPID [id number] 00:00:00* Test Item Value Reference Range Interpretation Comme nts CHOLESTEROL (test code = 2210) 177 MG/DL TRIGLYCERIDES (test code = 2232) 177 MG/DL HDL CHOLESTEROL (test code = 2220) 41 MG/DL CALC LDL CHOL (test code = 2237) 107 MG/DL RISK RATIO LDL/HDL (test cod e = 2238) 2.61 RATIO COMPREHENSIVE METABOLIC [id number] 00:00:00* Test Item Value Reference Range Interpretation Comme nts GLUCOSE (test code = 2217) 194 MG/DL BUN (test code = 2208) 14 MG/DL CREATININE (test code = 2214) 0.68 MG/DL eGFR AMER. (test cod e = 75041) 139 ML/MIN/1.73 eGFR NON- AMER. (test code = 18992) 120 ML/MIN/1.73 CALC BUN/CREAT (test code = 2235) 21 RATIO SODIUM (test code = 2231) 138 MEQ/L POTASSIUM (test code = 2228) 4.7 MEQ/L CHLORIDE (test code = 2215) 99 MEQ/L CARBON DIOXIDE (test code = 2206) 24 MEQ/L CALCIUM (test code = 2209) 10.4 MG/DL PROTEIN, TOTAL (test code = 2229) 7.7 G/DL ALBUMIN (test code = 2201) 4.6 G/DL CALC GLOBULIN (test code = 2240) 3.1 G/DL CALC A/G RATIO (test code = 2234) 1.5 RATIO BILIRUBIN, TOTAL (test code = 2207) 0.8 MG/DL ALKALINE PHOSPHATASE (test code = 2204) 96 U/L AST (test code = 2218) 38 U/L ALT (test code = 2219) 55 U/L COMPREHENSIVE METABOLIC [id number] 00:00:00* Test Item Value Reference Range Interpretation Comme nts GLUCOSE (test code = 2217) 194 MG/DL BUN (test code = 2208) 14 MG/DL CREATININE (test code = 2214) 0.68 MG/DL eGFR AMER. (test cod e = 63419) 139 ML/MIN/1.73 eGFR NON- AMER. (test code = 72010) 120 ML/MIN/1.73 CALC BUN/CREAT (test code = 2235) 21 RATIO SODIUM (test code = 2231) 138 MEQ/L POTASSIUM (test code = 2228) 4.7 MEQ/L CHLORIDE (test code = 2215) 99 MEQ/L CARBON DIOXIDE (test code = 2206) 24 MEQ/L CALCIUM (test code = 2209) 10.4 MG/DL PROTEIN, TOTAL (test code = 2229) 7.7 G/DL ALBUMIN (test code = 2201) 4.6 G/DL CALC GLOBULIN (test code = 2240) 3.1 G/DL CALC A/G RATIO (test code = 2234) 1.5 RATIO BILIRUBIN, TOTAL (test code = 2207) 0.8 MG/DL ALKALINE PHOSPHATASE (test code = 2204) 96 U/L AST (test code = 2218) 38 U/L ALT (test code = 2219) 55 U/L LIPID [id number] 00:00:00* Test Item Value Reference Range Interpretation Comme nts CHOLESTEROL (test code = 2210) 177 MG/DL TRIGLYCERIDES (test code = 2232) 177 MG/DL HDL CHOLESTEROL (test code = 2220) 41 MG/DL CALC LDL CHOL (test code = 2237) 107 MG/DL RISK RATIO LDL/HDL (test cod e = 2238) 2.61 RATIO LIPID [id number] 00:00:00* Test Item Value Reference Range Interpretation Comme nts CHOLESTEROL (test code = 2210) 177 MG/DL TRIGLYCERIDES (test code = 2232) 177 MG/DL HDL CHOLESTEROL (test code = 2220) 41 MG/DL CALC LDL CHOL (test code = 2237) 107 MG/DL RISK RATIO LDL/HDL (test cod e = 2238) 2.61 RATIO COMPREHENSIVE METABOLIC [id number] 00:00:00* Test Item Value Reference Range Interpretation Comme nts GLUCOSE (test code = 2217) 194 MG/DL BUN (test code = 2208) 14 MG/DL CREATININE (test code = 2214) 0.68 MG/DL eGFR AMER. (test cod e = 54976) 139 ML/MIN/1.73 eGFR NON- AMER. (test code = 01633) 120 ML/MIN/1.73 CALC BUN/CREAT (test code = 2235) 21 RATIO SODIUM (test code = 2231) 138 MEQ/L POTASSIUM (test code = 2228) 4.7 MEQ/L CHLORIDE (test code = 2215) 99 MEQ/L CARBON DIOXIDE (test code = 2206) 24 MEQ/L CALCIUM (test code = 2209) 10.4 MG/DL PROTEIN, TOTAL (test code = 2229) 7.7 G/DL ALBUMIN (test code = 2201) 4.6 G/DL CALC GLOBULIN (test code = 2240) 3.1 G/DL CALC A/G RATIO (test code = 2234) 1.5 RATIO BILIRUBIN, TOTAL (test code = 2207) 0.8 MG/DL ALKALINE PHOSPHATASE (test code = 2204) 96 U/L AST (test code = 2218) 38 U/L ALT (test code = 2219) 55 U/L LIPID [id number] 00:00:00* Test Item Value Reference Range Interpretation Comme nts CHOLESTEROL (test code = 2210) 177 MG/DL TRIGLYCERIDES (test code = 2232) 177 MG/DL HDL CHOLESTEROL (test code = 2220) 41 MG/DL CALC LDL CHOL (test code = 2237) 107 MG/DL RISK RATIO LDL/HDL (test cod e = 2238) 2.61 RATIO COMPREHENSIVE METABOLIC [id number] 00:00:00* Test Item Value Reference Range Interpretation Comme nts GLUCOSE (test code = 2217) 194 MG/DL BUN (test code = 2208) 14 MG/DL CREATININE (test code = 2214) 0.68 MG/DL eGFR AMER. (test cod e = 45551) 139 ML/MIN/1.73 eGFR NON- AMER. (test code = 99536) 120 ML/MIN/1.73 CALC BUN/CREAT (test code = 2235) 21 RATIO SODIUM (test code = 2231) 138 MEQ/L POTASSIUM (test code = 2228) 4.7 MEQ/L CHLORIDE (test code = 2215) 99 MEQ/L CARBON DIOXIDE (test code = 2206) 24 MEQ/L CALCIUM (test code = 2209) 10.4 MG/DL PROTEIN, TOTAL (test code = 2229) 7.7 G/DL ALBUMIN (test code = 2201) 4.6 G/DL CALC GLOBULIN (test code = 2240) 3.1 G/DL CALC A/G RATIO (test code = 2234) 1.5 RATIO BILIRUBIN, TOTAL (test code = 2207) 0.8 MG/DL ALKALINE PHOSPHATASE (test code = 2204) 96 U/L AST (test code = 2218) 38 U/L ALT (test code = 2219) 55 U/L COMPREHENSIVE METABOLIC [id number] 00:00:00* Test Item Value Reference Range Interpretation Comme nts GLUCOSE (test code = 2217) 194 MG/DL BUN (test code = 2208) 14 MG/DL CREATININE (test code = 2214) 0.68 MG/DL eGFR AMER. (test cod e = 14498) 139 ML/MIN/1.73 eGFR NON- AMER. (test code = 76259) 120 ML/MIN/1.73 CALC BUN/CREAT (test code = 2235) 21 RATIO SODIUM (test code = 2231) 138 MEQ/L POTASSIUM (test code = 2228) 4.7 MEQ/L CHLORIDE (test code = 2215) 99 MEQ/L CARBON DIOXIDE (test code = 2206) 24 MEQ/L CALCIUM (test code = 2209) 10.4 MG/DL PROTEIN, TOTAL (test code = 2229) 7.7 G/DL ALBUMIN (test code = 2201) 4.6 G/DL CALC GLOBULIN (test code = 2240) 3.1 G/DL CALC A/G RATIO (test code = 2234) 1.5 RATIO BILIRUBIN, TOTAL (test code = 2207) 0.8 MG/DL ALKALINE PHOSPHATASE (test code = 2204) 96 U/L AST (test code = 2218) 38 U/L ALT (test code = 2219) 55 U/L COMPREHENSIVE METABOLIC [id number] 00:00:00* Test Item Value Reference Range Interpretation Comme nts GLUCOSE (test code = 2217) 252 MG/DL BUN (test code = 2208) 14 MG/DL CREATININE (test code = 2214) 0.58 MG/DL eGFR AMER. (test cod e = 62449) 146 ML/MIN/1.73 eGFR NON- AMER. (test code = 79647) 126 ML/MIN/1.73 CALC BUN/CREAT (test code = 2235) 24 RATIO SODIUM (test code = 2231) 140 MEQ/L POTASSIUM (test code = 2228) 4.5 MEQ/L CHLORIDE (test code = 2215) 101 MEQ/L CARBON DIOXIDE (test code = 2206) 25 MEQ/L CALCIUM (test code = 2209) 9.6 MG/DL PROTEIN, TOTAL (test code = 2229) 7.7 G/DL ALBUMIN (test code = 2201) 4.5 G/DL CALC GLOBULIN (test code = 2240) 3.2 G/DL CALC A/G RATIO (test code = 2234) 1.4 RATIO BILIRUBIN, TOTAL (test code = 2207) 1.1 MG/DL ALKALINE PHOSPHATASE (test code = 2204) 112 U/L AST (test code = 2218) 24 U/L ALT (test code = 2219) 40 U/L LIPID [id number] 00:00:00* Test Item Value Reference Range Interpretation Comme nts CHOLESTEROL (test code = 2210) 181 MG/DL TRIGLYCERIDES (test code = 2232) 163 MG/DL HDL CHOLESTEROL (test code = 2220) 37 MG/DL CALC LDL CHOL (test code = 2237) 116 MG/DL RISK RATIO LDL/HDL (test cod e = 2238) 3.14 RATIO LIPID [id number] 00:00:00* Test Item Value Reference Range Interpretation Comme nts CHOLESTEROL (test code = 2210) 181 MG/DL TRIGLYCERIDES (test code = 2232) 163 MG/DL HDL CHOLESTEROL (test code = 2220) 37 MG/DL CALC LDL CHOL (test code = 2237) 116 MG/DL RISK RATIO LDL/HDL (test cod e = 2238) 3.14 RATIO HEMOGLOBIN A1c [ADDED]2021-03-22 00:00:00* Test Item Value Reference Range Interpretation Comme nts HEMOGLOBIN A1c (test code = 81503) 10.6 % HEMOGLOBIN A1c [ADDED]2021-03-22 00:00:00* Test Item Value Reference Range Interpretation Comme nts HEMOGLOBIN A1c (test code = 31085) 10.6 % HEMOGLOBIN A1c [ADDED]2021-03-22 00:00:00* Test Item Value Reference Range Interpretation Comme nts HEMOGLOBIN A1c (test code = 08728) 10.6 % COMPREHENSIVE METABOLIC [id number] 00:00:00* Test Item Value Reference Range Interpretation Comme nts GLUCOSE (test code = 2217) 252 MG/DL BUN (test code = 2208) 14 MG/DL CREATININE (test code = 2214) 0.58 MG/DL eGFR AMER. (test cod e = 56096) 146 ML/MIN/1.73 eGFR NON- AMER. (test code = 29500) 126 ML/MIN/1.73 CALC BUN/CREAT (test code = 2235) 24 RATIO SODIUM (test code = 2231) 140 MEQ/L POTASSIUM (test code = 2228) 4.5 MEQ/L CHLORIDE (test code = 2215) 101 MEQ/L CARBON DIOXIDE (test code = 2206) 25 MEQ/L CALCIUM (test code = 2209) 9.6 MG/DL PROTEIN, TOTAL (test code = 2229) 7.7 G/DL ALBUMIN (test code = 2201) 4.5 G/DL CALC GLOBULIN (test code = 2240) 3.2 G/DL CALC A/G RATIO (test code = 2234) 1.4 RATIO BILIRUBIN, TOTAL (test code = 2207) 1.1 MG/DL ALKALINE PHOSPHATASE (test code = 2204) 112 U/L AST (test code = 2218) 24 U/L ALT (test code = 2219) 40 U/L COMPREHENSIVE METABOLIC [id number] 00:00:00* Test Item Value Reference Range Interpretation Comme nts GLUCOSE (test code = 2217) 252 MG/DL BUN (test code = 2208) 14 MG/DL CREATININE (test code = 2214) 0.58 MG/DL eGFR AMER. (test cod e = 66154) 146 ML/MIN/1.73 eGFR NON- AMER. (test code = 85480) 126 ML/MIN/1.73 CALC BUN/CREAT (test code = 2235) 24 RATIO SODIUM (test code = 2231) 140 MEQ/L POTASSIUM (test code = 2228) 4.5 MEQ/L CHLORIDE (test code = 2215) 101 MEQ/L CARBON DIOXIDE (test code = 2206) 25 MEQ/L CALCIUM (test code = 2209) 9.6 MG/DL PROTEIN, TOTAL (test code = 2229) 7.7 G/DL ALBUMIN (test code = 2201) 4.5 G/DL CALC GLOBULIN (test code = 2240) 3.2 G/DL CALC A/G RATIO (test code = 2234) 1.4 RATIO BILIRUBIN, TOTAL (test code = 2207) 1.1 MG/DL ALKALINE PHOSPHATASE (test code = 2204) 112 U/L AST (test code = 2218) 24 U/L ALT (test code = 2219) 40 U/L LIPID [id number] 00:00:00* Test Item Value Reference Range Interpretation Comme nts CHOLESTEROL (test code = 2210) 181 MG/DL TRIGLYCERIDES (test code = 2232) 163 MG/DL HDL CHOLESTEROL (test code = 2220) 37 MG/DL CALC LDL CHOL (test code = 2237) 116 MG/DL RISK RATIO LDL/HDL (test cod e = 2238) 3.14 RATIO LIPID [id number] 00:00:00* Test Item Value Reference Range Interpretation Comme nts CHOLESTEROL (test code = 2210) 181 MG/DL TRIGLYCERIDES (test code = 2232) 163 MG/DL HDL CHOLESTEROL (test code = 2220) 37 MG/DL CALC LDL CHOL (test code = 2237) 116 MG/DL RISK RATIO LDL/HDL (test cod e = 2238) 3.14 RATIO HEMOGLOBIN A1c [ADDED]2021-03-22 00:00:00* Test Item Value Reference Range Interpretation Comme nts HEMOGLOBIN A1c (test code = 49504) 10.6 % HEMOGLOBIN A1c [ADDED]2021-03-22 00:00:00* Test Item Value Reference Range Interpretation Comme nts HEMOGLOBIN A1c (test code = 56423) 10.6 % HEMOGLOBIN A1c [ADDED]2021-03-22 00:00:00* Test Item Value Reference Range Interpretation Comme nts HEMOGLOBIN A1c (test code = 31852) 10.6 % COMPREHENSIVE METABOLIC [id number] 00:00:00* Test Item Value Reference Range Interpretation Comme nts GLUCOSE (test code = 2217) 252 MG/DL BUN (test code = 2208) 14 MG/DL CREATININE (test code = 2214) 0.58 MG/DL eGFR AMER. (test cod e = 93408) 146 ML/MIN/1.73 eGFR NON- AMER. (test code = 65467) 126 ML/MIN/1.73 CALC BUN/CREAT (test code = 2235) 24 RATIO SODIUM (test code = 2231) 140 MEQ/L POTASSIUM (test code = 2228) 4.5 MEQ/L CHLORIDE (test code = 2215) 101 MEQ/L CARBON DIOXIDE (test code = 2206) 25 MEQ/L CALCIUM (test code = 2209) 9.6 MG/DL PROTEIN, TOTAL (test code = 2229) 7.7 G/DL ALBUMIN (test code = 2201) 4.5 G/DL CALC GLOBULIN (test code = 2240) 3.2 G/DL CALC A/G RATIO (test code = 2234) 1.4 RATIO BILIRUBIN, TOTAL (test code = 2207) 1.1 MG/DL ALKALINE PHOSPHATASE (test code = 2204) 112 U/L AST (test code = 2218) 24 U/L ALT (test code = 2219) 40 U/L COMPREHENSIVE METABOLIC [id number] 00:00:00* Test Item Value Reference Range Interpretation Comme nts GLUCOSE (test code = 2217) 252 MG/DL BUN (test code = 2208) 14 MG/DL CREATININE (test code = 2214) 0.58 MG/DL eGFR AMER. (test cod e = 01008) 146 ML/MIN/1.73 eGFR NON- AMER. (test code = 32582) 126 ML/MIN/1.73 CALC BUN/CREAT (test code = 2235) 24 RATIO SODIUM (test code = 2231) 140 MEQ/L POTASSIUM (test code = 2228) 4.5 MEQ/L CHLORIDE (test code = 2215) 101 MEQ/L CARBON DIOXIDE (test code = 2206) 25 MEQ/L CALCIUM (test code = 2209) 9.6 MG/DL PROTEIN, TOTAL (test code = 2229) 7.7 G/DL ALBUMIN (test code = 2201) 4.5 G/DL CALC GLOBULIN (test code = 2240) 3.2 G/DL CALC A/G RATIO (test code = 2234) 1.4 RATIO BILIRUBIN, TOTAL (test code = 2207) 1.1 MG/DL ALKALINE PHOSPHATASE (test code = 2204) 112 U/L AST (test code = 2218) 24 U/L ALT (test code = 2219) 40 U/L LIPID [id number] 00:00:00* Test Item Value Reference Range Interpretation Comme nts CHOLESTEROL (test code = 2210) 181 MG/DL TRIGLYCERIDES (test code = 2232) 163 MG/DL HDL CHOLESTEROL (test code = 2220) 37 MG/DL CALC LDL CHOL (test code = 2237) 116 MG/DL RISK RATIO LDL/HDL (test cod e = 2238) 3.14 RATIO LIPID [id number] 00:00:00* Test Item Value Reference Range Interpretation Comme nts CHOLESTEROL (test code = 2210) 181 MG/DL TRIGLYCERIDES (test code = 2232) 163 MG/DL HDL CHOLESTEROL (test code = 2220) 37 MG/DL CALC LDL CHOL (test code = 2237) 116 MG/DL RISK RATIO LDL/HDL (test cod e = 2238) 3.14 RATIO HEMOGLOBIN A1c [ADDED]2021-03-22 00:00:00* Test Item Value Reference Range Interpretation Comme nts HEMOGLOBIN A1c (test code = 82752) 10.6 % HEMOGLOBIN A1c [ADDED]2021-03-22 00:00:00* Test Item Value Reference Range Interpretation Comme nts HEMOGLOBIN A1c (test code = 41805) 10.6 % HEMOGLOBIN A1c [ADDED]2021-03-22 00:00:00* Test Item Value Reference Range Interpretation Comme nts HEMOGLOBIN A1c (test code = 94870) 10.6 % COMPREHENSIVE METABOLIC [id number] 00:00:00* Test Item Value Reference Range Interpretation Comme nts GLUCOSE (test code = 2217) 252 MG/DL BUN (test code = 2208) 14 MG/DL CREATININE (test code = 2214) 0.58 MG/DL eGFR AMER. (test cod e = 76433) 146 ML/MIN/1.73 eGFR NON- AMER. (test code = 85286) 126 ML/MIN/1.73 CALC BUN/CREAT (test code = 2235) 24 RATIO SODIUM (test code = 2231) 140 MEQ/L POTASSIUM (test code = 2228) 4.5 MEQ/L CHLORIDE (test code = 2215) 101 MEQ/L CARBON DIOXIDE (test code = 2206) 25 MEQ/L CALCIUM (test code = 2209) 9.6 MG/DL PROTEIN, TOTAL (test code = 2229) 7.7 G/DL ALBUMIN (test code = 2201) 4.5 G/DL CALC GLOBULIN (test code = 2240) 3.2 G/DL CALC A/G RATIO (test code = 2234) 1.4 RATIO BILIRUBIN, TOTAL (test code = 2207) 1.1 MG/DL ALKALINE PHOSPHATASE (test code = 2204) 112 U/L AST (test code = 2218) 24 U/L ALT (test code = 2219) 40 U/L LIPID [id number] 00:00:00* Test Item Value Reference Range Interpretation Comme nts CHOLESTEROL (test code = 2210) 181 MG/DL TRIGLYCERIDES (test code = 2232) 163 MG/DL HDL CHOLESTEROL (test code = 2220) 37 MG/DL CALC LDL CHOL (test code = 2237) 116 MG/DL RISK RATIO LDL/HDL (test cod e = 2238) 3.14 RATIO HEMOGLOBIN A1c [ADDED]2021-03-22 00:00:00* Test Item Value Reference Range Interpretation Comme nts HEMOGLOBIN A1c (test code = 15967) 10.6 % HEMOGLOBIN A1c [ADDED]2021-03-22 00:00:00* Test Item Value Reference Range Interpretation Comme nts HEMOGLOBIN A1c (test code = 90452) 10.6 % COMPREHENSIVE METABOLIC [id number] 00:00:00* Test Item Value Reference Range Interpretation Comme nts GLUCOSE (test code = 2217) 252 MG/DL BUN (test code = 2208) 14 MG/DL CREATININE (test code = 2214) 0.58 MG/DL eGFR AMER. (test cod e = 91529) 146 ML/MIN/1.73 eGFR NON- AMER. (test code = 49262) 126 ML/MIN/1.73 CALC BUN/CREAT (test code = 2235) 24 RATIO SODIUM (test code = 2231) 140 MEQ/L POTASSIUM (test code = 2228) 4.5 MEQ/L CHLORIDE (test code = 2215) 101 MEQ/L CARBON DIOXIDE (test code = 2206) 25 MEQ/L CALCIUM (test code = 220) 9.6 MG/DL PROTEIN, TOTAL (test code = 222) 7.7 G/DL ALBUMIN (test code = 2201) 4.5 G/DL CALC GLOBULIN (test code = 2240) 3.2 G/DL CALC A/G RATIO (test code = 223) 1.4 RATIO BILIRUBIN, TOTAL (test code = 220) 1.1 MG/DL ALKALINE PHOSPHATASE (test code = 2204) 112 U/L AST (test code = 2218) 24 U/L ALT (test code = 2219) 40 U/L
[2023-12-22] MEDS ORDERED: methocarbamoL 500 MG TAB ONE (11:45)
--- NOTE | 2023-12-22 12:43 | RAD REPORT ---
EXAM DESCRIPTION: RAD - Chest Single View - 12/22/2023 12:33 pm CLINICAL HISTORY: L rib injury Chest pain. COMPARISON: Chest Pa And Lat (2 Views) dated 06/09/2016; Chest Pa And Lat (2 Views) dated 06/01/2016 FINDINGS: Portable technique limits examination quality. The lungs are grossly clear. The heart is normal in size. No displaced fractures. IMPRESSION: No acute intrathoracic process suspected.
--- NOTE | 2023-12-22 12:44 | RAD REPORT ---
EXAM DESCRIPTION: RAD - Ribs Left - 12/22/2023 12:33 pm CLINICAL HISTORY: PAIN COMPARISON: Chest Single View dated 12/22/2023 FINDINGS: No displaced rib fracture is seen. No aggressive rib lesion.
--- NOTE | 2023-12-22 12:49 | EDPHYS ---
Physician Documentation [facility] Name: Nicole Myers Age: 28 yrs Sex: Female : 1995 Arrival Date: 12/22/2023 Time: 11:04 Bed 17 Private MD: ED Physician Hany Navarro HPI: 12/21 11:29 This 28 yrs old Female presents to ER via Ambulatory with complaints of Rib ec2 pain, Back Pain. 11:29 Patient arrives today for evaluation of left mid back pain. Patient complaining of left ec2 mid back and left rib pain. Patient reports that she was getting her back stretched and subsequently fell with an injury to the area. Patient been taking Tylenol with minimal alleviation symptoms. Patient reports no falls injuries or trauma. Patient reports no C/T/L-spine pain.. 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 - Infectious Disease History:: Denies. - Social history:: Smoking status: Patient reports the use of cigarette tobacco products, Reported history of juuling and/or vaping. ROS: 11:29 Constitutional: as per hpi ec2 Exam: 11:29 Constitutional: GEN: NAD Head: atraumatic Eyes: EOMI Ears: External ears are ec2 normal. CV: regular rate LUNGS: no respiratory distress ABD: non-distended SKIN: no evidence of rashes MSK: no evidence of trauma, left rib TTP, left mid back TTP, no deformities or crepitus. No C/T/L-spine TTP or deformities. NEURO: moves all extremities equally Vital Signs: 11:13 BP 152 / 84; Pulse 64; Resp 18 S; Temp 99(TE); Pulse Ox 98% on R/A; Weight 165.56 kg as6 (R); Height 5 ft. 5 in. (R); Pain 9/10; 13:05 BP 122 / 81; Pulse 58; Resp 18; Pulse Ox 98% on R/A; Pain 7/10; nj1 11:13 Body Mass Index 60.74 (165.56 kg, 165.1 cm) as6 11:13 Pain Scale: Adult as6 13:05 Pain Scale: Adult nj1 MDM: 11:26 Patient medically screened. ec2 11:29 Data reviewed: vital signs. ED course: Patient arrives today for evaluation of left mid ec2 back pain. Examination remarkable for MSK findings as above. Will obtain chest x-ray as well as left rib x-ray. Suspect muscular sprain, doubt rib fracture.. 12:47 ED course: Rib x-ray and chest x-ray showed no bony injury. Will discharge home. Return ec2 precautions given. Suspect muscular strain.. 12/21 11:27 Order name: CXR XRAY; Complete Time: 12:47 ec2 12/21 11:27 Order name: Ribs Left XRAY; Complete Time: 12:47 ec2 Administered Medications: 11:35 Drug: Methocarbamol PO 500 mg PO once Route: PO; nj1 13:05 Follow up: Response: No adverse reaction; Pain is decreased nj1 Disposition Summary: 12/22/23 12:48 Discharge Ordered Notes: Location: Home ec2 Condition: Stable ec2 Diagnosis - Sprain of ribs ec2 Followup: ec2 - With: Private Physician - When: - Reason: Recheck today's complaints Discharge Instructions: - Discharge Summary Sheet ec2 - Rib Contusion ec2 Forms: - Medication Reconciliation Form ec2 - Antibiotic Education ec2 - Prescription Opioid Use ec2 - Patient Portal Instructions ec2 - Leadership Thank You Letter ec2 Prescriptions: - methocarbamol 500 mg Oral tablet - take 2 tablets ORAL route 4 times per day; 20 tablet; Refills: 0, Product ec2 Selection Permitted Signatures: Dispatcher [employer] Jon Dawson RN RN as6 Dottie Manriquez RN RN nj1 Hany Navarro MD MD ec2
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
[2023-12-22 13:16] VITALS: BP 152/84; TEMP 99; O2SAT 98
== END 2023-12-22 13:08 | disposition home or self-care (01) ==
LOC: ER 11:04
DX: S23.41XA Sprain of ribs, initial encounter (principal)
CPT/HCPCS: 71045

== ENCOUNTER 2024-01-19 17:07 | Emergency (ER) | payer SELFPAY ==
--- OUTSIDE RECORDS SUMMARY | 2024-01-19 17:12 | XMS REPORT | Continuity of Care Document ---
Author Name Unknown Address [address] [facility] [address] [place] [address] [facility] Address [address] [facility] [address] [place] [address] Care Team Providers Care Timber Cutter Name Role Phone Ted DUTTON, [facility] Primary Care Physician [phone] Allergies, Adverse Reactions, Alerts Allergy Name Allergy [...] Goal Plan of Care Note [code = 82197-1] Goal Plan of Care Note [code = 13373-5] Goal Plan of Care Note [code = 64852-5] Goal Plan of Care Note [code = 50619-8] Goal Plan of Care Note [code = 49631-6] Goal Plan of Care Note [code = 57721-9] Goal Plan of Care Note [code = 88700-5] Goal Plan of Care Note [code = 21067-3] Goal Plan of Care Note [code = 16826-3] Goal Plan of Care Note [code = 78460-2] Goal Plan of Care Note [code = 08837-9] Goal Plan of Care Note [code = 88115-0] Goal Plan of Care Note [code = 39986-6] Goal Plan of Care Note [code = 39419-2] Goal Plan of Care Note [code = 35877-2] Goal Plan of Care Note [code = 32497-7] Goal Plan of Care Note [code = 85623-8] Goal Plan of Care Note [code = 34513-4] Goal Plan of Care Note [code = 05786-4] Goal Plan of Care Note [code = 14072-4] Goal Plan of Care Note [code = 06656-5] Goal Plan of Care Note [code = 07330-3] Goal Plan of Care Note [code = 44845-0] Goal Plan of Care Note [code = 13121-5] Goal Plan of Care Note [code = 16453-7] Goal Plan of Care Note [code = 92047-4] Goal Plan of Care Note [code = 50508-5] Goal Plan of Care Note [code = 72465-0] Goal Plan of Care Note [code = 00267-5] Goal Plan of Care Note [code = 94179-1] Goal Plan of Care Note [code = 92606-4] Goal Plan of Care Note [code = 73005-3] Goal Plan of Care Note [code = 47452-2] Goal Plan of Care Note [code = 71975-4] Goal Plan of Care Note [code = 56930-5] Goal Plan of Care Note [code = 28033-9] Goal Plan of Care Note [code = 63426-4] Goal Plan of Care Note [code = 17453-0] Goal Plan of Care Note [code = 99291-9] Goal Plan of Care Note [code = 14473-8] Goal Plan of Care Note [code = 92607-3] Goal Plan of Care Note [code = 87512-0] Goal Plan of Care Note [code = 76690-1] Goal Plan of Care Note [code = 75279-7] Goal Plan of Care Note [code = 95185-5] Goal Plan of Care Note [code = 29188-3] Goal Plan of Care Note [code = 03252-5] Goal Plan of Care Note [code = 36146-4] Goal Plan of Care Note [code = 78056-8] Goal Plan of Care Note [code = 88298-6] Goal Plan of Care Note [code = 12422-1] Goal Plan of Care Note [code = 14143-9] Goal Plan of Care Note [code = 86683-6] Goal Plan of Care Note [code = 99174-8] Goal Plan of Care Note [code = 40325-0] Goal Plan of Care Note [code = 11428-9] Goal Plan of Care Note [code = 63445-2] Goal Plan of Care Note [code = 10171-7] Goal Plan of Care Note [code = 36982-0] Goal Plan of Care Note [code = 71201-8] Goal Plan of Care Note [code = 87792-5] Goal Plan of Care Note [code = 08629-9] Encounters Start Date/Time End Date/Time Encounter Type Admission Type Attending [facility] Care Department Encounter ID Source 2023-09-03 16:00:06 2023-09-03 16:00:06 Outpatient [place] [id number] Henry Aggarwal 2023-08-13 17:32:11 2023-08-13 17:32:11 [place]patient [place] [id number] Henry Aggarwal 2022-11-27 16:15:57 2022-11-27 16:15:57 Outpatient [place] [id number] Henry Aggarwal 2022-11-25 15:11:52 2022-11-25 15:11:52 Outpatient [place] [id number] Henry Aggarwal 2022-08-06 15:28:35 2022-08-06 15:28:35 Outpatient [place] [id number] Henry Aggarwal 2022-07-30 14:49:07 2022-07-30 14:49:07 Outpatient [place] [id number] Henry Aggarwal 2022-07-30 00:00:00 2022-07-30 00:00:00 Outpatient Visit [id number] 2022-07-02 15:43:12 2022-07-02 15:43:12 Outpatient [facility] [id number] Henry Aggarwal 2022-07-02 00:00:00 2022-07-02 00:00:00 Outpatient Visit [id number] 2022-05-08 00:00:00 2022-05-08 00:00:00 Outpatient Visit [id number] 2022-03-04 00:00:00 2022-03-04 00:00:00 Outpatient Visit [id number] Results Test Description Test Time Test Comments Results Result Co mments Source CULTURE, URINE 2022-11-30 19:04:35 SPECIMEN NUMBER: [id number] CULTURE, URINE SPECIMEN NUMBER: [id number] SPECIMEN COMMENT: URINE SOURCE: URINE REPORT STATUS: FINAL FINAL REPORT: 11/30/2022 <10,000 CFU/ML UROGENITAL [place] PRESENT NO COMMON PATHOGENS [facility] has important pathology staff changes effective 10/15/2022. New pathology staff will provide uninterrupted, excellent patient care and clinical consultation. See URL: [email or web address]. UNLESS OTHERWISE INDICATED, ALL TESTING PERFORMED AT [facility] [address] [place] [id number] TABLE COVER FOLDER: ALTHEA VASQUES M.D. CLIA NUMBER [id number] [facility]. [id number] LIPID [id number] 00:00:00* Test Item Value Reference Range Interpretation Comme nts CHOLESTEROL (test code = 2210) 121 MG/DL TRIGLYCERIDES (test code = 2232) 116 MG/DL HDL CHOLESTEROL (test code = 2220) 40 MG/DL CALC LDL CHOL (test code = 2237) 61 MG/DL RISK RATIO LDL/HDL (test cod e = 2238) 1.53 RATIO LIPID [id number] 00:00:00* Test Item Value Reference Range Interpretation Comme nts CHOLESTEROL (test code = 2210) 121 MG/DL TRIGLYCERIDES (test code = 2232) 116 MG/DL HDL CHOLESTEROL (test code = 2220) 40 MG/DL CALC LDL CHOL (test code = 2237) 61 MG/DL RISK RATIO LDL/HDL (test cod e = 2238) 1.53 RATIO LIPID [id number] 00:00:00* Test Item Value Reference Range Interpretation Comme nts CHOLESTEROL (test code = 2210) 121 MG/DL TRIGLYCERIDES (test code = 2232) 116 MG/DL HDL CHOLESTEROL (test code = 2220) 40 MG/DL CALC LDL CHOL (test code = 2237) 61 MG/DL RISK RATIO LDL/HDL (test cod e = 2238) 1.53 RATIO LIPID [id number] 00:00:00* Test Item Value Reference Range Interpretation Comme nts CHOLESTEROL (test code = 2210) 121 MG/DL TRIGLYCERIDES (test code = 2232) 116 MG/DL HDL CHOLESTEROL (test code = 2220) 40 MG/DL CALC LDL CHOL (test code = 2237) 61 MG/DL RISK RATIO LDL/HDL (test cod e = 2238) 1.53 RATIO LIPID [id number] 00:00:00* Test Item Value Reference Range Interpretation Comme nts CHOLESTEROL (test code = 2210) 121 MG/DL TRIGLYCERIDES (test code = 2232) 116 MG/DL HDL CHOLESTEROL (test code = 2220) 40 MG/DL CALC LDL CHOL (test code = 2237) 61 MG/DL RISK RATIO LDL/HDL (test cod e = 2238) 1.53 RATIO LIPID [id number] 00:00:00* Test Item Value Reference Range Interpretation Comme nts CHOLESTEROL (test code = 2210) 121 MG/DL TRIGLYCERIDES (test code = 2232) 116 MG/DL HDL CHOLESTEROL (test code = 2220) 40 MG/DL CALC LDL CHOL (test code = 2237) 61 MG/DL RISK RATIO LDL/HDL (test cod e = 2238) 1.53 RATIO COMPREHENSIVE METABOLIC [id number] 03:48:15* Test Item Value Reference Range Interpretation Comme nts GLUCOSE (test code = 2216) 108 MG/DL 70-99 H BUN (test code = 2207) 15 MG/DL 6-20 CREATININE (test code = 2213) 0.64 MG/DL 0.60-1.30 eGFR (2020 CKD-EPI) (test code = 02514) 124 ML/MIN/1.73 >60 CALC BUN/CREAT (test code [...] code = 2219) 28 U/L 5-40 LIPID [id number] 03:48:15* Test Item Value Reference Range Interpretation [...] SPECIMENS. FOR MOREINFORMATION, SEE CLIENT ANNOUNCEMENT AT [email or web address] RISK RATIO LDL/HDL (test code = 2238) 3.00 RATIO <3.22 HEMOGLOBIN [id number] 02:42:45* Test Item Value Reference Range Interpretation Comme nts HEMOGLOBIN A1c (test code = 08876) 6.1 % 4.2-5.6 H UNLESS OTHERWISE INDICATED, ALL [facility] [address] [place] [id number] TABLE COVER FOLDER: RICHY QUINTERO M.D. CLIA NUMBER [id number] [facility]. [id number] LIPID [id number] 00:00:00* Test Item Value Reference Range Interpretation Comme nts CHOLESTEROL (test code = 2210) 193 MG/DL TRIGLYCERIDES (test code = 2232) 107 MG/DL HDL CHOLESTEROL (test code = 2220) 43 MG/DL CALC LDL CHOL (test code = 2237) 129 MG/DL RISK RATIO LDL/HDL (test cod e = 2238) 3.00 RATIO LIPID [id number] 00:00:00* Test Item Value Reference Range Interpretation Comme nts CHOLESTEROL (test code = 2210) 193 MG/DL TRIGLYCERIDES (test code = 2232) 107 MG/DL HDL CHOLESTEROL (test code = 2220) 43 MG/DL CALC LDL CHOL (test code = 2237) 129 MG/DL RISK RATIO LDL/HDL (test cod e = 2238) 3.00 RATIO HEMOGLOBIN [id number] 00:00:00* Test Item Value Reference Range Interpretation Comme nts HEMOGLOBIN A1c (test code = 04671) 6.1 % HEMOGLOBIN [id number] 00:00:00* Test Item Value Reference Range Interpretation Comme nts HEMOGLOBIN A1c (test code = 91657) 6.1 % HEMOGLOBIN [id number] 00:00:00* Test Item Value Reference Range Interpretation Comme nts HEMOGLOBIN A1c (test code = 51589) 6.1 % COMPREHENSIVE METABOLIC [id number] 00:00:00* Test Item Value Reference Range Interpretation Comme nts GLUCOSE (test code = 2217) 108 MG/DL BUN (test code = 2208) 15 MG/DL CREATININE (test code = 2214) 0.64 MG/DL eGFR (2020 CKD-EPI) (test code = 77218) 124 ML/MIN/1.73 CALC BUN/CREAT (test code = [...] code = 2219) 28 U/L COMPREHENSIVE METABOLIC [id number] 00:00:00* Test Item Value Reference Range Interpretation Comme nts GLUCOSE (test code = 2217) 108 MG/DL BUN (test code = 2208) 15 MG/DL CREATININE (test code = 2214) 0.64 MG/DL eGFR (2020 CKD-EPI) (test code = 09721) 124 ML/MIN/1.73 CALC BUN/CREAT (test code = [...] (test code = 2219) 28 U/L LIPID [id number] 00:00:00* Test Item Value Reference Range Interpretation Comme nts CHOLESTEROL (test code = 2210) 193 MG/DL TRIGLYCERIDES (test code = 2232) 107 MG/DL HDL CHOLESTEROL (test code = 2220) 43 MG/DL CALC LDL CHOL (test code = 2237) 129 MG/DL RISK RATIO LDL/HDL (test cod e = 2238) 3.00 RATIO LIPID [id number] 00:00:00* Test Item Value Reference Range Interpretation Comme nts CHOLESTEROL (test code = 2210) 193 MG/DL TRIGLYCERIDES (test code = 2232) 107 MG/DL HDL CHOLESTEROL (test code = 2220) 43 MG/DL CALC LDL CHOL (test code = 2237) 129 MG/DL RISK RATIO LDL/HDL (test cod e = 2238) 3.00 RATIO HEMOGLOBIN [id number] 00:00:00* Test Item Value Reference Range Interpretation Comme nts HEMOGLOBIN A1c (test code = 02180) 6.1 % HEMOGLOBIN [id number] 00:00:00* Test Item Value Reference Range Interpretation Comme nts HEMOGLOBIN A1c (test code = 30531) 6.1 % HEMOGLOBIN [id number] 00:00:00* Test Item Value Reference Range Interpretation Comme nts HEMOGLOBIN A1c (test code = 24637) 6.1 % COMPREHENSIVE METABOLIC [id number] 00:00:00* Test Item Value Reference Range Interpretation Comme nts GLUCOSE (test code = 2217) 108 MG/DL BUN (test code = 2208) 15 MG/DL CREATININE (test code = 2214) 0.64 MG/DL eGFR (2020 CKD-EPI) (test code = 06499) 124 ML/MIN/1.73 CALC BUN/CREAT (test code = [...] code = 2219) 28 U/L COMPREHENSIVE METABOLIC [id number] 00:00:00* Test Item Value Reference Range Interpretation Comme nts GLUCOSE (test code = 2217) 108 MG/DL BUN (test code = 2208) 15 MG/DL CREATININE (test code = 2214) 0.64 MG/DL eGFR (2020 CKD-EPI) (test code = 10022) 124 ML/MIN/1.73 CALC BUN/CREAT (test code = [...] (test code = 2219) 28 U/L LIPID [id number] 00:00:00* Test Item Value Reference Range Interpretation Comme nts CHOLESTEROL (test code = 2210) 193 MG/DL TRIGLYCERIDES (test code = 2232) 107 MG/DL HDL CHOLESTEROL (test code = 2220) 43 MG/DL CALC LDL CHOL (test code = 2237) 129 MG/DL RISK RATIO LDL/HDL (test cod e = 2238) 3.00 RATIO LIPID [id number] 00:00:00* Test Item Value Reference Range Interpretation Comme nts CHOLESTEROL (test code = 2210) 193 MG/DL TRIGLYCERIDES (test code = 2232) 107 MG/DL HDL CHOLESTEROL (test code = 2220) 43 MG/DL CALC LDL CHOL (test code = 2237) 129 MG/DL RISK RATIO LDL/HDL (test cod e = 2238) 3.00 RATIO HEMOGLOBIN [id number] 00:00:00* Test Item Value Reference Range Interpretation Comme nts HEMOGLOBIN A1c (test code = 39505) 6.1 % HEMOGLOBIN [id number] 00:00:00* Test Item Value Reference Range Interpretation Comme nts HEMOGLOBIN A1c (test code = 23230) 6.1 % HEMOGLOBIN [id number] 00:00:00* Test Item Value Reference Range Interpretation Comme nts HEMOGLOBIN A1c (test code = 44749) 6.1 % COMPREHENSIVE METABOLIC [id number] 00:00:00* Test Item Value Reference Range Interpretation Comme nts GLUCOSE (test code = 2217) 108 MG/DL BUN (test code = 2208) 15 MG/DL CREATININE (test code = 2214) 0.64 MG/DL eGFR (2020 CKD-EPI) (test code = 17587) 124 ML/MIN/1.73 CALC BUN/CREAT (test code = [...] (test code = 2219) 28 U/L LIPID [id number] 00:00:00* Test Item Value Reference Range Interpretation Comme nts CHOLESTEROL (test code = 2210) 193 MG/DL TRIGLYCERIDES (test code = 2232) 107 MG/DL HDL CHOLESTEROL (test code = 2220) 43 MG/DL CALC LDL CHOL (test code = 2237) 129 MG/DL RISK RATIO LDL/HDL (test cod e = 2238) 3.00 RATIO HEMOGLOBIN [id number] 00:00:00* Test Item Value Reference Range Interpretation Comme nts HEMOGLOBIN A1c (test code = 30797) 6.1 % HEMOGLOBIN [id number] 00:00:00* Test Item Value Reference Range Interpretation Comme nts HEMOGLOBIN A1c (test code = 39710) 6.1 % COMPREHENSIVE METABOLIC [id number] 00:00:00* Test Item Value Reference Range Interpretation Comme nts GLUCOSE (test code = 2217) 108 MG/DL BUN (test code = 2208) 15 MG/DL CREATININE (test code = 2214) 0.64 MG/DL eGFR (2020 CKD-EPI) (test code = 63936) 124 ML/MIN/1.73 CALC BUN/CREAT (test code = [...] code = 2219) 28 U/L COMPREHENSIVE METABOLIC [id number] 00:00:00* Test Item Value Reference Range Interpretation Comme nts GLUCOSE (test code = 2217) 108 MG/DL BUN (test code = 2208) 15 MG/DL CREATININE (test code = 2214) 0.64 MG/DL eGFR (2020 CKD-EPI) (test code = 10787) 124 ML/MIN/1.73 CALC BUN/CREAT (test code = [...] (test code = 2219) 28 U/L LIPID [id number] 00:00:00* Test Item Value Reference Range Interpretation Comme nts CHOLESTEROL (test code = 2210) 182 MG/DL TRIGLYCERIDES (test code = 2232) 131 MG/DL HDL CHOLESTEROL (test code = 2220) 41 MG/DL CALC LDL CHOL (test code = 2237) 116 MG/DL RISK RATIO LDL/HDL (test cod e = 2238) 2.83 RATIO LIPID [id number] 00:00:00* Test Item Value Reference Range Interpretation Comme nts CHOLESTEROL (test code = 2210) 182 MG/DL TRIGLYCERIDES (test code = 2232) 131 MG/DL HDL CHOLESTEROL (test code = 2220) 41 MG/DL CALC LDL CHOL (test code = 2237) 116 MG/DL RISK RATIO LDL/HDL (test cod e = 2238) 2.83 RATIO COMPREHENSIVE METABOLIC [id number] 00:00:00* Test Item Value Reference Range Interpretation Comme nts GLUCOSE (test code = 2217) 171 MG/DL BUN (test code = 2208) 13 MG/DL CREATININE (test code = 2214) 0.66 MG/DL eGFR AMER. (test cod e = 70594) 140 ML/MIN/1.73 eGFR NON- AMER. (test code = 49592) 121 ML/MIN/1.73 CALC BUN/CREAT (test code = [...] code = 2219) 62 U/L COMPREHENSIVE METABOLIC [id number] 00:00:00* Test Item Value Reference Range Interpretation Comme nts GLUCOSE (test code = 2217) 171 MG/DL BUN (test code = 2208) 13 MG/DL CREATININE (test code = 2214) 0.66 MG/DL eGFR AMER. (test cod e = 33999) 140 ML/MIN/1.73 eGFR NON- AMER. (test code = 41571) 121 ML/MIN/1.73 CALC BUN/CREAT (test code = [...] (test code = 2219) 62 U/L HEMOGLOBIN [id number] 00:00:00* Test Item Value Reference Range Interpretation Comme nts HEMOGLOBIN A1c (test code = 62910) 7.6 % HEMOGLOBIN [id number] 00:00:00* Test Item Value Reference Range Interpretation Comme nts HEMOGLOBIN A1c (test code = 31705) 7.6 % HEMOGLOBIN [id number] 00:00:00* Test Item Value Reference Range Interpretation Comme nts HEMOGLOBIN A1c (test code = 48681) 7.6 % LIPID [id number] 00:00:00* Test Item Value Reference Range Interpretation Comme nts CHOLESTEROL (test code = 2210) 182 MG/DL TRIGLYCERIDES (test code = 2232) 131 MG/DL HDL CHOLESTEROL (test code = 2220) 41 MG/DL CALC LDL CHOL (test code = 2237) 116 MG/DL RISK RATIO LDL/HDL (test cod e = 2238) 2.83 RATIO LIPID [id number] 00:00:00* Test Item Value Reference Range Interpretation Comme nts CHOLESTEROL (test code = 2210) 182 MG/DL TRIGLYCERIDES (test code = 2232) 131 MG/DL HDL CHOLESTEROL (test code = 2220) 41 MG/DL CALC LDL CHOL (test code = 2237) 116 MG/DL RISK RATIO LDL/HDL (test cod e = 2238) 2.83 RATIO COMPREHENSIVE METABOLIC [id number] 00:00:00* Test Item Value Reference Range Interpretation Comme nts GLUCOSE (test code = 2217) 171 MG/DL BUN (test code = 2208) 13 MG/DL CREATININE (test code = 2214) 0.66 MG/DL eGFR AMER. (test cod e = 41427) 140 ML/MIN/1.73 eGFR NON- AMER. (test code = 30819) 121 ML/MIN/1.73 CALC BUN/CREAT (test code = [...] code = 2219) 62 U/L COMPREHENSIVE METABOLIC [id number] 00:00:00* Test Item Value Reference Range Interpretation Comme nts GLUCOSE (test code = 2217) 171 MG/DL BUN (test code = 2208) 13 MG/DL CREATININE (test code = 2214) 0.66 MG/DL eGFR AMER. (test cod e = 15677) 140 ML/MIN/1.73 eGFR NON- AMER. (test code = 74922) 121 ML/MIN/1.73 CALC BUN/CREAT (test code = [...] (test code = 2219) 62 U/L HEMOGLOBIN [id number] 00:00:00* Test Item Value Reference Range Interpretation Comme nts HEMOGLOBIN A1c (test code = 03725) 7.6 % HEMOGLOBIN [id number] 00:00:00* Test Item Value Reference Range Interpretation Comme nts HEMOGLOBIN A1c (test code = 25463) 7.6 % HEMOGLOBIN [id number] 00:00:00* Test Item Value Reference Range Interpretation Comme nts HEMOGLOBIN A1c (test code = 20733) 7.6 % LIPID [id number] 00:00:00* Test Item Value Reference Range Interpretation Comme nts CHOLESTEROL (test code = 2210) 182 MG/DL TRIGLYCERIDES (test code = 2232) 131 MG/DL HDL CHOLESTEROL (test code = 2220) 41 MG/DL CALC LDL CHOL (test code = 2237) 116 MG/DL RISK RATIO LDL/HDL (test cod e = 2238) 2.83 RATIO LIPID [id number] 00:00:00* Test Item Value Reference Range Interpretation Comme nts CHOLESTEROL (test code = 2210) 182 MG/DL TRIGLYCERIDES (test code = 2232) 131 MG/DL HDL CHOLESTEROL (test code = 2220) 41 MG/DL CALC LDL CHOL (test code = 2237) 116 MG/DL RISK RATIO LDL/HDL (test cod e = 2238) 2.83 RATIO COMPREHENSIVE METABOLIC [id number] 00:00:00* Test Item Value Reference Range Interpretation Comme nts GLUCOSE (test code = 2217) 171 MG/DL BUN (test code = 2208) 13 MG/DL CREATININE (test code = 2214) 0.66 MG/DL eGFR AMER. (test cod e = 86272) 140 ML/MIN/1.73 eGFR NON- AMER. (test code = 67348) 121 ML/MIN/1.73 CALC BUN/CREAT (test code = [...] code = 2219) 62 U/L COMPREHENSIVE METABOLIC [id number] 00:00:00* Test Item Value Reference Range Interpretation Comme nts GLUCOSE (test code = 2217) 171 MG/DL BUN (test code = 2208) 13 MG/DL CREATININE (test code = 2214) 0.66 MG/DL eGFR AMER. (test cod e = 26615) 140 ML/MIN/1.73 eGFR NON- AMER. (test code = 70142) 121 ML/MIN/1.73 CALC BUN/CREAT (test code = [...] (test code = 2219) 62 U/L HEMOGLOBIN [id number] 00:00:00* Test Item Value Reference Range Interpretation Comme nts HEMOGLOBIN A1c (test code = 27077) 7.6 % HEMOGLOBIN [id number] 00:00:00* Test Item Value Reference Range Interpretation Comme nts HEMOGLOBIN A1c (test code = 63546) 7.6 % LIPID [id number] 00:00:00* Test Item Value Reference Range Interpretation Comme nts CHOLESTEROL (test code = 2210) 182 MG/DL TRIGLYCERIDES (test code = 2232) 131 MG/DL HDL CHOLESTEROL (test code = 2220) 41 MG/DL CALC LDL CHOL (test code = 2237) 116 MG/DL RISK RATIO LDL/HDL (test cod e = 2238) 2.83 RATIO COMPREHENSIVE METABOLIC [id number] 00:00:00* Test Item Value Reference Range Interpretation Comme nts GLUCOSE (test code = 2217) 171 MG/DL BUN (test code = 2208) 13 MG/DL CREATININE (test code = 2214) 0.66 MG/DL eGFR AMER. (test cod e = 00125) 140 ML/MIN/1.73 eGFR NON- AMER. (test code = 26718) 121 ML/MIN/1.73 CALC BUN/CREAT (test code = [...] (test code = 2219) 62 U/L HEMOGLOBIN [id number] 00:00:00* Test Item Value Reference Range Interpretation Comme nts HEMOGLOBIN A1c (test code = 12826) 7.6 % HEMOGLOBIN [id number] 00:00:00* Test Item Value Reference Range Interpretation Comme nts HEMOGLOBIN A1c (test code = 24837) 7.6 % HEMOGLOBIN [id number] 00:00:00* Test Item Value Reference Range Interpretation Comme nts HEMOGLOBIN A1c (test code = 13562) 7.6 % LIPID [id number] 00:00:00* Test Item Value Reference Range Interpretation Comme nts CHOLESTEROL (test code = 2210) 177 MG/DL TRIGLYCERIDES (test code = 2232) 177 MG/DL HDL CHOLESTEROL (test code = 2220) 41 MG/DL CALC LDL CHOL (test code = 2237) 107 MG/DL RISK RATIO LDL/HDL (test cod e = 2238) 2.61 RATIO LIPID [id number] 00:00:00* Test Item Value Reference Range Interpretation Comme nts CHOLESTEROL (test code = 2210) 177 MG/DL TRIGLYCERIDES (test code = 2232) 177 MG/DL HDL CHOLESTEROL (test code = 2220) 41 MG/DL CALC LDL CHOL (test code = 2237) 107 MG/DL RISK RATIO LDL/HDL (test cod e = 2238) 2.61 RATIO COMPREHENSIVE METABOLIC [id number] 00:00:00* Test Item Value Reference Range Interpretation Comme nts GLUCOSE (test code = 2217) 194 MG/DL BUN (test code = 8) 14 MG/DL CREATININE (test code = 2214) 0.68 MG/DL eGFR AMER. (test cod e = 53324) 139 ML/MIN/1.73 eGFR NON- AMER. (test code = 71726) 120 ML/MIN/1.73 CALC BUN/CREAT (test code = [...] code = 2219) 55 U/L COMPREHENSIVE METABOLIC [id number] 00:00:00* Test Item Value Reference Range Interpretation Comme nts GLUCOSE (test code = 2217) 194 MG/DL BUN (test code = 2208) 14 MG/DL CREATININE (test code = 2214) 0.68 MG/DL eGFR AMER. (test cod e = 28312) 139 ML/MIN/1.73 eGFR NON- AMER. (test code = 00225) 120 ML/MIN/1.73 CALC BUN/CREAT (test code = [...] (test code = 2219) 55 U/L LIPID [id number] 00:00:00* Test Item Value Reference Range Interpretation Comme nts CHOLESTEROL (test code = 2210) 177 MG/DL TRIGLYCERIDES (test code = 2232) 177 MG/DL HDL CHOLESTEROL (test code = 2220) 41 MG/DL CALC LDL CHOL (test code = 2237) 107 MG/DL RISK RATIO LDL/HDL (test cod e = 2238) 2.61 RATIO LIPID [id number] 00:00:00* Test Item Value Reference Range Interpretation Comme nts CHOLESTEROL (test code = 2210) 177 MG/DL TRIGLYCERIDES (test code = 2232) 177 MG/DL HDL CHOLESTEROL (test code = 2220) 41 MG/DL CALC LDL CHOL (test code = 2237) 107 MG/DL RISK RATIO LDL/HDL (test cod e = 2238) 2.61 RATIO COMPREHENSIVE METABOLIC [id number] 00:00:00* Test Item Value Reference Range Interpretation Comme nts GLUCOSE (test code = 2217) 194 MG/DL BUN (test code = 2208) 14 MG/DL CREATININE (test code = 2214) 0.68 MG/DL eGFR AMER. (test cod e = 51548) 139 ML/MIN/1.73 eGFR NON- AMER. (test code = 30737) 120 ML/MIN/1.73 CALC BUN/CREAT (test code = [...] code = 2219) 55 U/L COMPREHENSIVE METABOLIC [id number] 00:00:00* Test Item Value Reference Range Interpretation Comme nts GLUCOSE (test code = 2217) 194 MG/DL BUN (test code = 2208) 14 MG/DL CREATININE (test code = 2214) 0.68 MG/DL eGFR AMER. (test cod e = 59208) 139 ML/MIN/1.73 eGFR NON- AMER. (test code = 67818) 120 ML/MIN/1.73 CALC BUN/CREAT (test code = [...] (test code = 2219) 55 U/L LIPID [id number] 00:00:00* Test Item Value Reference Range Interpretation Comme nts CHOLESTEROL (test code = 2210) 177 MG/DL TRIGLYCERIDES (test code = 2232) 177 MG/DL HDL CHOLESTEROL (test code = 2220) 41 MG/DL CALC LDL CHOL (test code = 2237) 107 MG/DL RISK RATIO LDL/HDL (test cod e = 2238) 2.61 RATIO LIPID [id number] 00:00:00* Test Item Value Reference Range Interpretation Comme nts CHOLESTEROL (test code = 2210) 177 MG/DL TRIGLYCERIDES (test code = 2232) 177 MG/DL HDL CHOLESTEROL (test code = 2220) 41 MG/DL CALC LDL CHOL (test code = 2237) 107 MG/DL RISK RATIO LDL/HDL (test cod e = 2238) 2.61 RATIO COMPREHENSIVE METABOLIC [id number] 00:00:00* Test Item Value Reference Range Interpretation Comme nts GLUCOSE (test code = 2217) 194 MG/DL BUN (test code = 2208) 14 MG/DL CREATININE (test code = 2214) 0.68 MG/DL eGFR AMER. (test cod e = 25189) 139 ML/MIN/1.73 eGFR NON- AMER. (test code = 95799) 120 ML/MIN/1.73 CALC BUN/CREAT (test code = [...] (test code = 2219) 55 U/L LIPID [id number] 00:00:00* Test Item Value Reference Range Interpretation Comme nts CHOLESTEROL (test code = 2210) 177 MG/DL TRIGLYCERIDES (test code = 2232) 177 MG/DL HDL CHOLESTEROL (test code = 2220) 41 MG/DL CALC LDL CHOL (test code = 2237) 107 MG/DL RISK RATIO LDL/HDL (test cod e = 2238) 2.61 RATIO COMPREHENSIVE METABOLIC [id number] 00:00:00* Test Item Value Reference Range Interpretation Comme nts GLUCOSE (test code = 2217) 194 MG/DL BUN (test code = 2208) 14 MG/DL CREATININE (test code = 2214) 0.68 MG/DL eGFR AMER. (test cod e = 14759) 139 ML/MIN/1.73 eGFR NON- AMER. (test code = 54368) 120 ML/MIN/1.73 CALC BUN/CREAT (test code = [...] code = 2219) 55 U/L COMPREHENSIVE METABOLIC [id number] 00:00:00* Test Item Value Reference Range Interpretation Comme nts GLUCOSE (test code = 2217) 194 MG/DL BUN (test code = 2208) 14 MG/DL CREATININE (test code = 2214) 0.68 MG/DL eGFR AMER. (test cod e = 34144) 139 ML/MIN/1.73 eGFR NON- AMER. (test code = 39929) 120 ML/MIN/1.73 CALC BUN/CREAT (test code = [...] code = 2219) 55 U/L COMPREHENSIVE METABOLIC [id number] 00:00:00* Test Item Value Reference Range Interpretation Comme nts GLUCOSE (test code = 2217) 252 MG/DL BUN (test code = 2208) 14 MG/DL CREATININE (test code = 2214) 0.58 MG/DL eGFR AMER. (test cod e = 54566) 146 ML/MIN/1.73 eGFR NON- AMER. (test code = 91559) 126 ML/MIN/1.73 CALC BUN/CREAT (test code = [...] (test code = 2219) 40 U/L LIPID [id number] 00:00:00* Test Item Value Reference Range Interpretation Comme nts CHOLESTEROL (test code = 2210) 181 MG/DL TRIGLYCERIDES (test code = 2232) 163 MG/DL HDL CHOLESTEROL (test code = 2220) 37 MG/DL CALC LDL CHOL (test code = 2237) 116 MG/DL RISK RATIO LDL/HDL (test cod e = 2238) 3.14 RATIO LIPID [id number] 00:00:00* Test Item Value Reference Range Interpretation [...] Comme nts HEMOGLOBIN A1c (test code = 05430) 10.6 % HEMOGLOBIN A1c [ADDED]2021-03-22 00:00:00* Test Item Value Reference Range Interpretation Comme nts HEMOGLOBIN A1c (test code = 62910) 10.6 % HEMOGLOBIN A1c [ADDED]2021-03-22 00:00:00* Test Item Value Reference Range Interpretation Comme nts HEMOGLOBIN A1c (test code = 66987) 10.6 % COMPREHENSIVE METABOLIC [id number] 00:00:00* Test Item Value Reference Range Interpretation Comme nts GLUCOSE (test code = 2217) 252 MG/DL BUN (test code = 2208) 14 MG/DL CREATININE (test code = 2214) 0.58 MG/DL eGFR AMER. (test cod e = 27971) 146 ML/MIN/1.73 eGFR NON- AMER. (test code = 66588) 126 ML/MIN/1.73 CALC BUN/CREAT (test code = [...] code = 2219) 40 U/L COMPREHENSIVE METABOLIC [id number] 00:00:00* Test Item Value Reference Range Interpretation Comme nts GLUCOSE (test code = 2217) 252 MG/DL BUN (test code = 2208) 14 MG/DL CREATININE (test code = 2214) 0.58 MG/DL eGFR AMER. (test cod e = 85374) 146 ML/MIN/1.73 eGFR NON- AMER. (test code = 04312) 126 ML/MIN/1.73 CALC BUN/CREAT (test code = [...] (test code = 2219) 40 U/L LIPID [id number] 00:00:00* Test Item Value Reference Range Interpretation Comme nts CHOLESTEROL (test code = 2210) 181 MG/DL TRIGLYCERIDES (test code = 2232) 163 MG/DL HDL CHOLESTEROL (test code = 2220) 37 MG/DL CALC LDL CHOL (test code = 2237) 116 MG/DL RISK RATIO LDL/HDL (test cod e = 2238) 3.14 RATIO LIPID [id number] 00:00:00* Test Item Value Reference Range Interpretation [...] Comme nts HEMOGLOBIN A1c (test code = 15008) 10.6 % HEMOGLOBIN A1c [ADDED]2021-03-22 00:00:00* Test Item Value Reference Range Interpretation Comme nts HEMOGLOBIN A1c (test code = 10357) 10.6 % HEMOGLOBIN A1c [ADDED]2021-03-22 00:00:00* Test Item Value Reference Range Interpretation Comme nts HEMOGLOBIN A1c (test code = 12530) 10.6 % COMPREHENSIVE METABOLIC [id number] 00:00:00* Test Item Value Reference Range Interpretation Comme nts GLUCOSE (test code = 2217) 252 MG/DL BUN (test code = 2208) 14 MG/DL CREATININE (test code = 2214) 0.58 MG/DL eGFR AMER. (test cod e = 93773) 146 ML/MIN/1.73 eGFR NON- AMER. (test code = 16840) 126 ML/MIN/1.73 CALC BUN/CREAT (test code = [...] code = 2219) 40 U/L COMPREHENSIVE METABOLIC [id number] 00:00:00* Test Item Value Reference Range Interpretation Comme nts GLUCOSE (test code = 2217) 252 MG/DL BUN (test code = 2208) 14 MG/DL CREATININE (test code = 2214) 0.58 MG/DL eGFR AMER. (test cod e = 53991) 146 ML/MIN/1.73 eGFR NON- AMER. (test code = 45768) 126 ML/MIN/1.73 CALC BUN/CREAT (test code = [...] (test code = 2219) 40 U/L LIPID [id number] 00:00:00* Test Item Value Reference Range Interpretation Comme nts CHOLESTEROL (test code = 2210) 181 MG/DL TRIGLYCERIDES (test code = 2232) 163 MG/DL HDL CHOLESTEROL (test code = 2220) 37 MG/DL CALC LDL CHOL (test code = 2237) 116 MG/DL RISK RATIO LDL/HDL (test cod e = 2238) 3.14 RATIO LIPID [id number] 00:00:00* Test Item Value Reference Range Interpretation [...] Comme nts HEMOGLOBIN A1c (test code = 38185) 10.6 % HEMOGLOBIN A1c [ADDED]2021-03-22 00:00:00* Test Item Value Reference Range Interpretation Comme nts HEMOGLOBIN A1c (test code = 23988) 10.6 % HEMOGLOBIN A1c [ADDED]2021-03-22 00:00:00* Test Item Value Reference Range Interpretation Comme nts HEMOGLOBIN A1c (test code = 69544) 10.6 % COMPREHENSIVE METABOLIC [id number] 00:00:00* Test Item Value Reference Range Interpretation Comme nts GLUCOSE (test code = 2217) 252 MG/DL BUN (test code = 2208) 14 MG/DL CREATININE (test code = 2214) 0.58 MG/DL eGFR AMER. (test cod e = 68323) 146 ML/MIN/1.73 eGFR NON- AMER. (test code = 36966) 126 ML/MIN/1.73 CALC BUN/CREAT (test code = [...] (test code = 2219) 40 U/L LIPID [id number] 00:00:00* Test Item Value Reference Range Interpretation [...] Comme nts HEMOGLOBIN A1c (test code = 26452) 10.6 % HEMOGLOBIN A1c [ADDED]2021-03-22 00:00:00* Test Item Value Reference Range Interpretation Comme nts HEMOGLOBIN A1c (test code = 44049) 10.6 % COMPREHENSIVE METABOLIC [id number] 00:00:00* Test Item Value Reference Range Interpretation Comme nts GLUCOSE (test code = 2217) 252 MG/DL BUN (test code = 2208) 14 MG/DL CREATININE (test code = 2214) 0.58 MG/DL eGFR AMER. (test cod e = 50288) 146 ML/MIN/1.73 eGFR NON- AMER. (test code = 44206) 126 ML/MIN/1.73 CALC BUN/CREAT (test code = [...]
[2024-01-19] MEDS ORDERED: NA CHLORIDE 0.9% 1,000 ML ONE (17:21)
[2024-01-19] MEDS ORDERED: FAMOTIDINE 20 MG/2 ML VIAL IV ONE (17:21)
[2024-01-19] MEDS ORDERED: DICYCLOMINE HCL 10 MG CAP ONE (17:21)
[2024-01-19] MEDS ORDERED: ONDANSETRON 4 MG/2 ML VIAL ONE (17:21)
[2024-01-19 18:07] LABS: Absolute Eosinophils 0.1 K/uL (0-0.5); Absolute Lymphocytes (CBC) 2.5 K/uL (0.7-4.9); Absolute Monocytes 0.7 K/uL (0.1-1.3); Absolute Neutrophil 3.2 K/uL (1.8-8.0); Basophils % 0.3 % (0-1.3); Eosinophils % 1.3 % (0-4.4); Hematocrit 40.8 % (36.0-45.0); Hemoglobin 13.6 g/dL (12.0-15.0); Lymphocytes % 38.6 % (15.3-44.8); MCH 29.8 pg (27.0-35.0); MCHC 33.2 g/dL (32.0-36.0); MCV 89.5 fL (80-100); MPV 9.1 fL (7.6-11.3); Monocytes % 11.1 % (3.3-12.3); Neutrophils % 48.7 % (41.7-73.7); Nucleated Red Blood Cells % 0.1 % (0-0); Platelets 239 thou/uL (152-406); RBC Red Blood Cell Count 4.56 M/uL (3.86-4.86); Red Cell Distribution Width 13.7 % (12.1-15.2)
[2024-01-19 18:16] LABS: Albumin 3.2 g/dL (3.4-5.0); Albumin/Globulin Ratio 0.8 (1.1-1.8); Anion Gap 8.7 mEq/L (5.0-15.0); Potassium 3.7 mEq/L (3.5-5.1); Protein, Total 7.2 g/dL (6.4-8.2)
--- NOTE | 2024-01-19 18:26 | RAD REPORT ---
EXAM DESCRIPTION: US - Abdomen Exam Limited - 01/19/2024 6:03 pm CLINICAL HISTORY: Abdominal pain. COMPARISON: 2020 FINDINGS: The examination is limited secondary to body habitus. The gallbladder wall is not thickened. A gallstone is not seen. The biliary tree is normal caliber. IMPRESSION: No gross abnormality of the gallbladder/common bile duct seen
[2024-01-19 18:57] LABS: Calcium Oxalate Crystals- Ur Few /HPF (None Seen); Specific Gravity 1.021 (1.005-1.030); Specific Gravity 1.022 (1.005-1.030); Sqamous Epithelial <5 /HPF (None Seen); Urine Bacteria None Seen /HPF (<20); Urine Bilirubin NEGATIVE (Negative); Urine Blood 1+ (Negative); Urine Clarity Turbid (Clear); Urine Color Light-Yellow (Yellow); Urine Culture Reflex Order NOT NEEDED; Urine Glucose NEGATIVE (Negative); Urine Ketones TRACE (Negative); Urine Microscopic Reflex YN ORDER UMIC; Urine Mucus Slight /HPF (None Seen); Urine Nitrite NEGATIVE (Negative); Urine Protein NEGATIVE (Negative); Urine RBC 21-50 /HPF (None Seen); Urine Urobilinogen 1+ (Normal); Urine WBC <5 /HPF (<5); Urine pH 7.5 (5.0-7.0)
[2024-01-19] MEDS ORDERED: KETOROLAC 30 MG/ML INJ ONE (19:37)
--- NOTE | 2024-01-19 19:47 | EDPHYS ---
Physician Documentation [facility] Name: Nicole Myers Age: 28 yrs Sex: Female : 1995 Arrival Date: 01/19/2024 Time: 17:07 Bed 16 Private MD: ED Physician Hany Navarro HPI: 01/19 00:24 This 28 yrs old Female presents to ER via Ambulatory with complaints of Abdominal Pain. kb 00:24 Pt is a 28 year old female who presents for upper abd pain, nausea, vomiting and kb diarrhea that started 4 days ago. denies fever. States she has had abd issues since childhood but no diagnosis has ever been made. Denies alleviating or aggravating factors. . Historical: - Allergies: 01/18 17:13 hydrochlorothiazide; mb9 - PMHx: 17:13 Anxiety; Back pain; Depression; diabetes mellitus; fatty liver; Hypertension; mb9 - PSHx: 17:13 None; mb9 - Immunization history:: Adult Immunizations up to date. - Infectious Disease History:: Denies. - Social history:: Smoking status: Patient reports the use of cigarette tobacco products, denies chronic smoking, but will smoke occasionally. ROS: 01/19 00:20 Constitutional: As per HPI kb Exam: 00:20 Constitutional: This is a well developed, well nourished patient who is awake, alert, kb and in no acute distress. Head/Face: Normocephalic, atraumatic. ENT: Moist Mucous membranes Cardiovascular: Regular rate Respiratory: Respirations even and unlabored. No increased work of breathing. Talking in full sentences Skin: Warm, dry with normal turgor. Normal color. MS/ Extremity: Pulses equal, no cyanosis. Neurovascular intact. Full, normal range of motion. Neuro: Awake and alert, GCS 15, oriented to person, place, time, and situation. Moves all extremities. Normal gait. 00:20 Abdomen/GI: Inspection: obese Bowel sounds: normal, Palpation: soft, in all quadrants, nontender, in the right lower quadrant and left lower quadrant, mild abdominal tenderness, in the right upper quadrant and left upper quadrant, Vital Signs: 01/18 17:12 BP 150 / 82; Pulse 63; Resp 18; Temp 98(O); Pulse Ox 100% on R/A; Weight 167.83 kg; mb9 Height 5 ft. 5 in. ; Pain 8/10; 18:25 BP 142 / 89; Pulse 79; Resp 16; Pulse Ox 98% ; bp 19:26 BP 119 / 102; Pulse 61; Pulse Ox 98% on R/A; Pain 4/10; tm6 20:26 BP 136 / 75; Pulse 60; Resp 19; Temp 97.5(TE); Pulse Ox 98% on R/A; Pain 2/10; tm6 17:12 Body Mass Index 61.57 (167.83 kg, 165.1 cm) mb9 17:12 Pain Scale: Adult mb9 19:26 Pain Scale: Adult tm6 20:26 Pain Scale: Adult tm6 MDM: 17:13 Patient medically screened. kb 01/19 00:20 Differential diagnosis: cholecystitis, Cholelithiasis, diverticulitis, gastritis, kb gastroesophageal reflux disease, GI Bleed, non-specific abd pain, Peptic Ulcer Disease. Data reviewed: vital signs, nurses notes. Test considered but Not performed: CT: ct abd considered and discussed with pt. Using shared decision making we elected not to do CT at this time. Pt educated on return precautions, verbal understanding received. . 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 01/18 17:15 Order name: CBC with Diff; Complete Time: 18:18 9 01/18 17:15 Order name: CMP; Complete Time: 18:18 9 01/18 17:15 Order name: Lipase; Complete Time: 18:18 9 01/18 17:15 Order name: Test, Urine; Complete Time: 19:14 9 01/18 17:15 Order name: Urinalysis w/ reflexes; Complete Time: 19:14 9 01/18 17:16 Order name: Flu; Complete Time: 18:18 9 01/18 17:15 Order name: US Abdomen Limited; Complete Time: 18:28 9 01/18 17:15 Order name: IV Saline Lock; Complete Time: 17:39 9 01/18 17:15 Order name: Labs collected and sent; Complete Time: 17:39 9 Administered Medications: 01/18 17:39 Drug: NS 0.9% IV 1000 ml IV at 1 bolus Per protocol; 1000 mL bolus Route: IV; Rate: 1 bp bolus; Site: left forearm; 17:39 Drug: Famotidine IVP 20 mg IVP once; dilute with 10 mL 0.9% NaCl; give over 2 minutes bp Route: IVP; Site: left forearm; 17:39 Drug: Ondansetron IVP 4 mg IVP once; over 2 minutes Route: IVP; Site: left forearm; bp 17:39 Drug: Dicyclomine PO 20 mg PO once Route: PO; bp 19:40 Drug: Ketorolac IVP 15 mg IVP once Route: IVP; Site: left antecubital; tm6 Disposition Summary: 01/19/24 19:47 Discharge Ordered Notes: Location: Home kb Condition: Stable kb Diagnosis - Upper abdominal pain, unspecified kb Followup: kb - With: Emergency Department - When: As needed - Reason: Worsening of condition Followup: kb - With: Private Physician - When: 2 - 3 days - Reason: Recheck today's complaints, Continuance of care, Re-evaluation by your physician Discharge Instructions: - Discharge Summary Sheet kb - Abdominal Pain, Adult, [id number] kb Forms: - Medication Reconciliation Form kb - Antibiotic Education kb - Prescription Opioid Use kb - Patient Portal Instructions kb - Leadership Thank You Letter kb Prescriptions: - Zofran 4 mg Oral tablet - take 1 tablet ORAL route every 6 hours As needed; 12 tablet; Refills: 0, kb Product Selection Permitted - Pepcid 20 mg Oral Tablet - take 1 tablet ORAL route once daily; 20 tablet; Refills: 0, Product Selection kb Permitted - dicyclomine 20 mg Oral tablet - take 1 tablet ORAL route 4 times per day As needed; 20 tablet; Refills: 0, kb Product Selection Permitted Signatures: Dispatcher [employer] Nuvia Tarango FNP-C FNP-Michael Lantigua, RN RN bp Stefani Dobbs RN RN mb9 Kt Brooks RN RN tm6
--- NOTE | 2024-01-19 19:47 | ER ---
Nurse's Notes [facility] Name: Nicole Myers Age: 28 yrs Sex: Female : 1995 Arrival Date: 01/19/2024 Time: 17:07 Bed 16 Private MD: Diagnosis: Upper abdominal pain, unspecified Presentation: 01/18 17:12 Chief complaint: Patient states: "Since Thursday, I've been having N/V/D, cramps mb9 everywhere, and I feel fatigued ". Coronavirus screen: Vaccine status: Patient reports receiving the 2nd dose of the covid vaccine. Ebola Screen: No symptoms or risks identified at this time. Initial Sepsis Screen: Does the patient meet any 2 criteria? No. Patient's initial sepsis screen is negative. Does the patient have a suspected source of infection? No. Patient's initial sepsis screen is negative. Risk Assessment: Do you want to hurt yourself or someone else? Patient reports no desire to harm self or others. Onset of symptoms was 2023. 17:12 Method Of Arrival: Ambulatory mb9 17:12 Acuity: BRIANA 3 mb9 Triage Assessment: 17:15 General: Appears uncomfortable, obese, Behavior is cooperative, appropriate for age, bp anxious. Pain: Complains of pain in abdomen. EENT: No deficits noted. GI: Reports diarrhea, nausea, vomiting. Historical: - Allergies: 17:13 hydrochlorothiazide; mb9 - PMHx: 17:13 Anxiety; Back pain; Depression; diabetes mellitus; fatty liver; Hypertension; mb9 - PSHx: 17:13 None; mb9 - Immunization history:: Adult Immunizations up to date. - Infectious Disease History:: Denies. - Social history:: Smoking status: Patient reports the use of cigarette tobacco products, denies chronic smoking, but will smoke occasionally. Screenin:26 [facility] ED Fall Risk Assessment (Adult) History of falling in the last 3 months, bp including since admission No falls in past 3 months (0 pts). Abuse screen: Denies threats or abuse. Denies injuries from another. Nutritional screening: No deficits noted. Tuberculosis screening: No symptoms or risk factors identified. Assessment: 17:15 General: Appears uncomfortable, obese, Behavior is cooperative, appropriate for age, bp anxious. Pain: Complains of pain in abdomen. GI: Bowel sounds present X 4 quads. Abd is soft X 4 quads. 18:26 Reassessment: No changes from previously documented assessment. Patient is alert, bp oriented x 3, equal unlabored respirations, skin warm/dry/pink. 19:27 Reassessment: Patient appears in no apparent distress at this time. Patient is alert, tm6 oriented x 3, equal unlabored respirations, skin warm/dry/pink. Vital Signs: 17:12 BP 150 / 82; Pulse 63; Resp 18; Temp 98(O); Pulse Ox 100% on R/A; Weight 167.83 kg; mb9 Height 5 ft. 5 in. ; Pain 8/10; 18:25 BP 142 / 89; Pulse 79; Resp 16; Pulse Ox 98% ; bp 19:26 BP 119 / 102; Pulse 61; Pulse Ox 98% on R/A; Pain 4/10; tm6 20:26 BP 136 / 75; Pulse 60; Resp 19; Temp 97.5(TE); Pulse Ox 98% on R/A; Pain 2/10; tm6 17:12 Body Mass Index 61.57 (167.83 kg, 165.1 cm) mb9 17:12 Pain Scale: Adult mb9 19:26 Pain Scale: Adult tm6 20:26 Pain Scale: Adult tm6 ED Course: 17:10 Patient arrived in ED. rg4 17:13 Nuvia Morales, GEENA[facility] kb 17:13 Hany Navarro MD is Attending Physician. kb 17:13 Triage completed. mb9 17:13 Arm band placed on. mb9 17:18 Michael Cooney, RN is Primary Nurse. bp 17:40 Inserted saline lock: 22 gauge in left forearm, using aseptic technique. Blood bp collected. 18:05 US Abdomen Limited In Process Unspecified. EDMS 18:26 Patient has correct armband on for positive identification. bp 19:47 Hany Navarro MD is Referral Physician. kb 19:55 Primary Nurse role handed off by Michael Cooney, RN as6 20:27 Provided Education on: prescriptions. tm6 20:27 No provider procedures requiring assistance completed. IV discontinued, intact, tm6 bleeding controlled, No redness/swelling at site. Pressure dressing applied. Administered Medications: 17:39 Drug: NS 0.9% IV 1000 ml IV at 1 bolus Per protocol; 1000 mL bolus Route: IV; Rate: 1 bp bolus; Site: left forearm; 17:39 Drug: Famotidine IVP 20 mg IVP once; dilute with 10 mL 0.9% NaCl; give over 2 minutes bp Route: IVP; Site: left forearm; 17:39 Drug: Ondansetron IVP 4 mg IVP once; over 2 minutes Route: IVP; Site: left forearm; bp 17:39 Drug: Dicyclomine PO 20 mg PO once Route: PO; bp 19:40 Drug: Ketorolac IVP 15 mg IVP once Route: IVP; Site: left antecubital; tm6 Medication: 18:26 VIS not applicable for this client. bp Outcome: 19:47 Discharge ordered by . kb 20:27 Discharged to home ambulatory, with family, tm6 20:27 Condition: stable 20:27 Discharge instructions given to patient, family, Instructed on discharge instructions, follow up and referral plans. medication usage, Demonstrated understanding of instructions, follow-up care, medications, Prescriptions given X 2, 20:27 Patient left the ED. tm6 Signatures: Dispatcher [employer] EDMS Nuvia Morales, LUBRICATING MACHINE TENDER-C LUBRICATING MACHINE TENDER-Marilee Carmona rg4 Michael Cooney, RN RN bp Jon Banerjee, ANAMARIA RN as6 Stefani Dobbs, RN RN mb9 Kt Brooks RN RN tm6
[2024-01-19 21:27] VITALS: BP 136/75; TEMP 97.5; O2SAT 98
== END 2024-01-19 20:27 | disposition home or self-care (01) ==
LOC: ER 17:07
DX: R10.11 Right upper quadrant pain (principal)
CPT/HCPCS: 36415; 76705; 80053; 81001; 81025; 83690; 85025; 87804; 99284; J2405; J7030

== ENCOUNTER 2024-06-04 22:15 | Emergency (ER) | payer SELFPAY ==
--- OUTSIDE RECORDS SUMMARY | 2024-06-04 22:20 | XMS REPORT | Continuity of Care Document ---
Author Name Unknown Address [address] [facility] [address] [place] [address] [facility] Address [address] [facility] [place] [address] Care Team Providers Care Banquet Coordinator Name Role Phone PCP, PATIENT DOES NOT HAVE A Primary Care Physic laureen Unavailable Francisco Lin MD Attending Clinician FRANCISCO LIN Attending Clinician Unavailable FRANCISCO LIN Admitting Clinician Unavailable Problems Condition Name Condition Details Condition Category Status Onset Date Resolution Date Last Treatment Date Treating Clinician Comments Source Abnormal TSH Abnormal TSH Disease Active 11-23 00:00: 00 [facility] Allergies, Adverse Reactions, Alerts Allergy Name Allergy Type Status Severity Reaction(s) Onset Date Inactive Date Treating Clinician Comments Source n Propensi ty to adverse reaction to drug Active 6-17 00:00: 00 Henry Aggarwal hydroCHL OROthiaz lisa - Oral Propensi ty to adverse reaction to drug Active 3-03 00:00: 00 Henry Aggarwal Hydrochl orothiaz lisa Propensi ty to adverse reaction to drug Active 8 00:00: 00 Henry Aggarwal Hydrochl orothiaz lisa Propensi ty to adverse reaction s Active Nausea and/or Vomiting 11-18 00:00: 00 [facility] HYDROCHL OROTHIAZ LISA DRUG INGREDI Active N/V 11-18 00:00: 00 [facility] Social History Social Habit Start Date Stop Date Quantity Comments [facility] function 2015-03-21 00:00:00 2015-03-21 00:00:00 [facility] Alcoholic beverage intake 2015-03-04 00:00:00 2015-03-04 00:00:00 Current non-drinker of alcohol (finding) [facility] Tobacco use and exposure 2013-11-18 00:00:00 2013-11-18 00:00:00 Smokeless tobacco non-user [facility] Sex assigned at 1995 00:00:00 1995 00:00:00 [facility] Smoking Status Start Date Stop Date Source Never smoked tobacco [facility] Medications Ordered Medication Name Filled Medication Name Start Date Stop Date Current Medication? Ordering Clinician Indication Dosage Frequency Signature (SIG) Comments Components Source ondansetron (ZOFRAN (PF)) injection 4 mg 01-21 09:00: 00 01-21 08:56 :00 No 4mg 4 mg, Slow IV Push, ONCE, 1 dose, On Thu01/22/24 at 0400, [facility] iopamidol (ISOVUE 370-500 mL) injection 100 mL 01-21 08:45: 00 01-21 08:45 :00 No [id number] 100mL 100 mL, Intravenou s, ONCE, 1 dose, On Thu01/22/24 at 0345, Routine [facility] ketorolac (TORADOL) injection 30 mg 01-21 08:15: 00 01-21 07:55 :00 No 30mg 30 mg, Slow IV Push, ONCE, 1 dose, On Thu01/22/24 at 0315, Routine [facility] ondansetron (ZOFRAN (PF)) injection 4 mg 01-21 07:15: 00 01-21 07:56 :00 No 4mg 4 mg, Slow IV Push, ONCE, 1 dose, On Thu01/22/24 at 0215, [facility] dicyclomine 20 mg tablet 01-21 00:00: 00 Yes [id number] 20mg Take 1 tablet by mouth every 6 (six) hours as needed for Abdominal pain. [facility] traMADoL (ULTRAM) 50 mg tablet 01-21 00:00: 00 Yes [id number] 50mg Take 1 tablet by mouth every 6 (six) hours as needed for Pain (scale 7-10). Indication s: acute pain [facility] ondansetron (ZOFRAN) 4 mg tablet 01-21 00:00: 00 Yes [id number] 4mg Take 1 tablet by mouth every 8 (eight) hours as needed for Nausea and Vomiting (N/V). [facility] TAKE 1 DOSE PACK DIRECTED 09-03 00:00: 00 11-26 00:00 :00 No 4 Henry Aggarwal INSTILL 1 DROP INTO BOTH EYES 4 TIMES DAILY. 09-03 00:00: 00 11-26 00:00 :00 No [id number] Henry Radha Jasen TAKE 1 TABLET TWICE DAILY WITH FOOD. 2022-08 00:00: 00 11-26 00:00 :00 No [id number] Henry Radha Jasen TAKE 1 CAPSULE TWICE DAILY. 11-27 00:00: 00 11-26 00:00 :00 No 100 Henry Aggarwal APPLY SPARINGLY TO AFFECTED AREA(S) 3 TIMES A DAY 11-27 00:00: 00 11-26 00:00 :00 No 5 Henry Aggarwal NEXPLANON 68 MG IMPLANT 2021-08 00:00: 00 Yes Henry Aggarwal Dose Unknown 2021-08- 00:00: 00 Yes Henry Aggarwal TAKE 1 TABLET DAILY. 2021-08 00:00: 00 No Dose Unknown 2021-08 00:00: 00 No TAKE 1 TABLET DAILY. 2021-08 00:00: 00 11-26 00:00 :00 No Henry Aggarwal TAKE 1 TABLET DAILY. 2021-08-16 00:00: 00 11-26 00:00 :00 No 40 Henry F Jasen TAKE 1 TABLET DAILY. 2021-08 1-16 00:00: 00 11-26 00:00 :00 No 10 Henry Aggarwal TAKE 1 TABLET DAILY. 05-14 00:00: 00 No TAKE 1 TABLET DAILY. 05-14 00:00: 00 No TAKE 1 TABLET DAILY. 05-14 00:00: 00 11-26 00:00 :00 No Henry Aggarwal TAKE 1 TABLET DAILY. 05-09 00:00: 00 No TAKE 1 TABLET DAILY. 05-09 00:00: 00 No TAKE 1 TABLET DAILY. 05-09 00:00: 00 No TAKE 1 TABLET DAILY. 05-09 00:00: 00 11-26 00:00 :00 No Henry Aggarwal TAKE TWO (2) TABLET(S) BY MOUTH EVERY SIX HOURS NEEDED FOR PAIN. 03-31 00:00: 00 Yes Henry Aggarwal TAKE TWO (2) TABLET(S) BY MOUTH EVERY SIX HOURS NEEDED FOR PAIN. 03-31 00:00: 00 No TAKE TWO (2) TABLET(S) BY MOUTH EVERY SIX HOURS NEEDED FOR PAIN. 8 00:00: 00 No TAKE TWO (2) TABLET(S) BY MOUTH EVERY SIX HOURS NEEDED FOR PAIN. 03-31 00:00: 00 No Dose Unknown 03-06 00:00: 00 Yes Henry Aggarwal ProAir HFA 90 mcg/actuati on aerosol inhaler 0 03-06 00:00: 00 No 2mcg/ac tuation ProAir HFA 90 mcg/actuati on aerosol inhaler 03-06 00:00: 00 No 2mcg/ac tuation Dose Unknown 03-06 00:00: 00 No TAKE 1 TABLET DAILY. 03-04 00:00: 00 Yes Henry Aggarwal TAKE 1 TABLET DAILY. 03-04 00:00: 00 Yes Herny Aggarwal TAKE 1 TABLET DAILY. 03-04 00:00: 00 Yes Henry Aggarwal Dose Unknown 03-04 00:00: 00 Yes Henry Aggarwal Dose Unknown 03-04 00:00: 00 Yes Henry Aggarwal Dose Unknown 03-04 00:00: 00 Yes Henry Aggarwal Dose Unknown 03-04 00:00: 00 Yes 1000 Hnery Aggarwal lisinopril 40 mg tablet 03-04 00:00: 00 [...] 00 No 1mg glipizide 10 mg tablet 03-04 00:00: 00 No 1mg amoxicillin 875 mg-potassiu m clavulanate 125 mg tablet 03-04 00:00: 00 No 1mg metformin ER 1,000 mg 24 hr tablet,exte nded release 03-04 00:00: 00 No 1mg lovastatin 10 mg tablet 03-04 00:00: 00 No 1mg prednisone 20 mg tablet 03-04 00:00: 00 No mg Dose Unknown 01-31 00:00: 00 Yes Henry Aggarwal cyclobenzap rine 10 mg tablet 01-31 00:00: 00 No 1mg cyclobenzap rine 10 mg tablet 01-31 00:00: 00 No 1mg Dose Unknown 01-31 00:00: 00 No cyclobenzap rine 10 mg tablet 01-31 00:00: 00 No 1mg TAKE TWO (2) TABLET(S) BY MOUTH EVERY SIX HOURS NEEDED FOR PAIN. 12-20 00:00: 00 Yes Henry Aggarwal TAKE 1 TABLET DAILY. 12-05 00:00: 00 Yes Henry Aggarwal TAKE 1 TABLET DAILY. 12-05 00:00: 00 Yes Henry Aggarwal TAKE 1 TABLET DAILY. 12-05 00:00: 00 Yes Henry Aggarwal Dose Unknown 12-05 00:00: 00 Yes Henry Aggarwal Dose Unknown 12-05 00:00: 00 Yes Henry Aggarwal Dose Unknown 12-05 00:00: 00 Yes Henry Aggarwal Dose Unknown 12-05 00:00: 00 Yes Henry Aggarwal lisinopril 40 mg tablet 12-05 00:00: 00 No 1mg TAKE 1 TABLET DAILY. 12-05 00:00: 00 No cyclobenzap rine 10 mg tablet 12-05 00:00: 00 No 1mg lovastatin 10 mg tablet 12-05 00:00: 00 No 1mg Dose Unknown 12-05 00:00: 00 No Dose Unknown 12-05 00:00: 00 No Dose Unknown 12-05 00:00: 00 No TAKE 1 TABLET DAILY. 2021-0 21 00:00: 00 No TAKE 1 TABLET DAILY. 2021-0 421 00:00: 00 No cyclobenzap rine 10 mg tablet 2021-0 421 00:00: 00 No 1mg lovastatin 10 mg tablet 2021-0 421 00:00: 00 No 1mg Dose Unknown 2021-0 421 00:00: 00 No Dose Unknown 0 421 00:00: 00 No Dose Unknown 0 421 00:00: 00 No lisinopril 40 mg tablet 2021-0 12-05 00:00: 00 No 1mg glipizide 10 mg tablet 2021-0 421 00:00: 00 No 1mg cyclobenzap rine 10 mg tablet 2021-0 421 00:00: 00 No 1mg lovastatin 10 mg tablet 2021-0 12-05 00:00: 00 No 1mg Dose Unknown 0 12-05 00:00: 00 No Dose Unknown 0 12-05 00:00: 00 No Dose Unknown 2021-0 12-05 00:00: 00 No TAKE 1 TABLET DAILY. 2021-0 21 00:00: 00 No TAKE 1 TABLET DAILY. 2021-0 21 00:00: 00 No TAKE 1 TABLET DAILY. 2021-0 421 00:00: 00 No Dose Unknown 2021-0 421 00:00: 00 No Dose Unknown 2021-0 421 00:00: 00 No Dose Unknown 2021-0 421 00:00: 00 No Dose Unknown 2021-0 421 00:00: 00 No Dose Unknown 2021-0 3-03 00:00: 00 Yes Henry F Jasen Dose Unknown 2021-0 3-03 00:00: 00 Yes Henry F Jasen Dose Unknown 2021-0 3-03 00:00: 00 Yes Henry F Jasen Dose Unknown 2021-0 3-03 00:00: 00 Yes Henry F Jasen Dose Unknown 2021-0 3-03 00:00: 00 No Dose Unknown 2-0 3-03 00:00: 00 No Dose Unknown 2021-0 3-03 00:00: 00 No Dose Unknown 2-0 3-03 00:00: 00 No Dose Unknown 2022-0 [...] No Dose Unknown 2022-0 2-03 00:00: 00 Yes Henry Aggarwal Dose Unknown 2022-0 2-03 00:00: 00 No Dose Unknown 2022-0 2-03 00:00: 00 No Dose Unknown 2022-0 2-03 00:00: 00 No Dose Unknown 2022-0 2-03 00:00: 00 No Dose Unknown 2022-0 1-31 00:00: 00 Yes Henry Aggarwal Dose Unknown 2022-0 1-31 00:00: 00 Yes Henry Aggarwal Dose Unknown 2022-0 1-31 00:00: 00 Yes Henry Aggarwal Dose Unknown 2022-0 1-31 00:00: 00 No Dose Unknown 2022-0 1-31 00:00: 00 No Dose Unknown 2022-0 1-31 00:00: 00 No Dose Unknown 2022-0 1-31 00:00: 00 No Dose Unknown 2022-0 1-31 00:00: 00 No Dose Unknown 2022-0 1-31 00:00: 00 No Dose Unknown 2022-0 1-31 00:00: 00 No Dose Unknown 2022-0 1-31 00:00: 00 No Dose Unknown 2022-0 1-31 00:00: 00 No Dose Unknown 2022-0 1-31 00:00: 00 No Dose Unknown 2022-0 1-31 00:00: 00 No Dose Unknown 2022-0 1-31 00:00: 00 No glipizide 10 mg tablet 2020-08- 00:00: 00 Yes 1mg Henry Aggarwal glipizide 10 mg tablet 2020-08- 00:00: 00 No 1mg glipizide 10 mg tablet 2020-08 00:00: 00 No 1mg glipizide 10 mg tablet 2020-08 00:00: 00 No 1mg glipizide 10 mg tablet 2020-08 00:00: 00 No 1mg TAKE 1 TABLET DAILY. 2020-08 00:00: 00 Yes Henry Aggarwal glipizide 10 mg tablet 2020-08 00:00: 00 No 1mg TAKE 1 TABLET DAILY. 2020-08 00:00: 00 No TAKE 1 TABLET DAILY. 2020-08 00:00: 00 No TAKE 1 TABLET DAILY. 2020-08 00:00: 00 No TAKE 1 TABLET DAILY. 2020-08 0 00:00: 00 Yes Henry Aggarwal cyclobenzap rine 10 mg tablet 2020-08 0- 00:00: 00 Yes 1mg Henry Aggarwal Dose Unknown 2020-08 0-06 00:00: 00 Yes Henry Aggarwal lisinopril 40 mg tablet 2020-08 0-06 00:00: 00 No 1mg metformin ER 1,000 mg 24 hr tablet,exte nded release 2020-08 0-06 00:00: 00 No 1mg cyclobenzap rine 10 mg tablet 2020-08 0- 00:00: 00 No 1mg lisinopril 40 mg tablet 2020-08 0-06 00:00: 00 No 1mg metformin ER 1,000 mg 24 hr tablet,exte nded release 2020-08 0-06 00:00: 00 No 1mg cyclobenzap rine 10 mg tablet 2020-08 0-06 00:00: 00 No 1mg TAKE 1 TABLET DAILY. 2020-08 0- 00:00: 00 No metformin ER 1,000 mg 24 hr tablet,exte nded release 2020-08 0-06 00:00: 00 No 1mg cyclobenzap rine 10 mg tablet 2020-08 0-06 00:00: 00 No 1mg TAKE 1 TABLET DAILY. 2020-08 00:00: 00 No cyclobenzap rine 10 mg tablet 2020-08 00:00: 00 No 1mg Dose Unknown 2020-08 00:00: 00 No TAKE 1 TABLET DAILY. 04-17 00:00: 00 Yes Henry Aggarwal metformin ER 1,000 mg 24 hr tablet,exte nded release 04-17 00:00: 00 Yes 1mg Henry Aggarwal lisinopril 30 mg tablet 04-17 00:00: 00 [...] nded release 04-17 00:00: 00 No 1mg Dose Unknown 04-03 00:00: 00 Yes Henry Aggarwal metformin 500 mg tablet 04-03 00:00: 00 No 1mg metformin 500 mg tablet 04-03 00:00: 00 No 1mg metformin 500 mg tablet 04-03 00:00: 00 No 1mg Dose Unknown 04-03 00:00: 00 No Dose Unknown 03-20 00:00: 00 Yes Henry Aggarwal Dose Unknown 03-20 00:00: 00 Yes Henry Aggarwal lisinopril 20 mg tablet 03-20 00:00: 00 Yes 1mg Henry Aggarwal prednisone 20 mg tablet 03-20 00:00: 00 Yes 1mg Henry Aggarwal lisinopril 20 mg tablet 03-20 00:00: 00 [...] mg tablet 03-20 00:00: 00 No 1mg acetaminoph en-codeine (TYLENOL-CO DEINE #3) 300-30 mg tablet 2015-08 00:00: 00 Yes 1{tbl} Take 1 tablet by mouth every 6 (six) hours as needed for Pain (scale 4-6) (for cough). [facility] lisinopril (PRINIVIL,Z ESTRIL) 10 mg tablet 2015-08 00:00: 00 Yes 10mg Take 1 tablet by mouth at bedtime. [facility] Immunizations Ordered Immunization Name Filled Immunization Name Date Status Comments Source Pfizer COVID-19 Vaccine Pfizer COVID-19 Vaccine 2021-10-17 00:00:00 Completed Henry Aggarwal Pfizer COVID-19 Vaccine 2021-10-17 00:00:00 Completed Pfizer COVID-19 Vaccine 2021-10-17 00:00:00 Completed Pfizer COVID-19 Vaccine 2021-10-17 00:00:00 Completed Pfizer COVID-19 Vaccine 2021-10-17 00:00:00 Completed Pfizer COVID-19 Vaccine Pfizer COVID-19 Vaccine 2021-09-18 00:00:00 Completed Henry Aggarwal Pfizer COVID-19 Vaccine 2021-09-18 00:00:00 Completed Pfizer COVID-19 Vaccine 2021-09-18 00:00:00 Completed Pfizer COVID-19 Vaccine 2021-09-18 00:00:00 Completed Pfizer COVID-19 Vaccine 2021-09-18 00:00:00 Completed TD, NOS Unknown Completed [facility] Vital Signs Vital Name Observation Time Observation Value Comments S ource Systolic blood pressure 2024-01-22 09:00:00 124 mm[Hg] [facility] Diastolic blood pressure 2024-01-22 09:00:00 66 mm[Hg] [facility] Heart rate 2024-01-22 09:00:00 66 /min [facility] Respiratory rate 2024-01-22 09:00:00 18 /min [facility] Oxygen saturation in Arterial blood by Pulse oximetry 2024-01-22 09:00:00 97 /min [facility] Body temperature 2024-01-22 06:09:00 37.11 Clau [facility] Body height 2024-01-22 06:09:00 162.6 cm [facility] Body weight 2024-01-22 06:09:00 154.223 kg [facility] BMI 2024-01-22 06:09:00 58.36 kg/m2 [facility] BP Systolic 2024-05-23 13:30:00 115 mm[Hg] Macho Aggarwal BP Diastolic 2024-05-23 13:30:00 74 mm[Hg] Miguel Aggarwal Weight Measured 2024-05-23 13:30:00 347.20 pounds Henry Aggarwal Height Measured 2024-05-23 13:30:00 65.00 inches Henry F Jasen Body Temperature 2024-05-23 13:30:00 98.00 degrees Henry F Jasen Heart Rate 2024-05-23 13:30:00 86.00 /min Bella en F Jasen Respiratory Rate 2024-05-23 13:30:00 18.00 /min Henry F Jasen BP Systolic 2024-05-09 15:21:00 136 mm[Hg] Step hen F Jasen BP Diastolic 2024-05-09 15:21:00 81 mm[Hg] Miguel phen F Jasen Weight Measured 2024-05-09 15:21:00 347.00 pounds Henry F Jasen Height Measured 2024-05-09 15:21:00 65.00 inches Henry F Jasen Body Temperature 2024-05-09 15:21:00 97.80 degrees Henry F Jasen Heart Rate 2024-05-09 15:21:00 76.00 /min Bella en F Jasen Respiratory Rate 2024-05-09 15:21:00 18.00 /min Henry F Jasen BP Systolic 2023-09-03 16:00:00 161 mm[Hg] Step hen F Jasen BP Diastolic 2023-09-03 16:00:00 87 mm[Hg] Miguel phen F Jasen Weight Measured 2023-09-03 16:00:00 390.20 pounds Henry F Jasen Height Measured 2023-09-03 16:00:00 65.00 inches Henry F Jasen Body Temperature 2023-09-03 16:00:00 99.80 degrees Henry F Jasen Heart Rate 2023-09-03 16:00:00 97.00 /min Bella en F Jasen Respiratory Rate 2023-09-03 16:00:00 Henry F Jasen BP Systolic 2023-08-13 16:53:00 140 mm[Hg] Step hen F Jasen BP Diastolic 2023-08-13 16:53:00 88 mm[Hg] Miguel phen F Jasen Weight Measured 2023-08-13 16:53:00 388.80 pounds Henry F Jasen Height Measured 2023-08-13 16:53:00 65.00 inches Henry F Jasen Body Temperature 2023-08-13 16:53:00 99.00 degrees Henry F Jasen Heart Rate 2023-08-13 16:53:00 95.00 /min Bella en F Jasen Respiratory Rate 2023-08-13 16:53:00 Henry F Jasen BP Systolic 2022-11-27 16:16:00 136 mm[Hg] Step hen F Jasen BP Diastolic 2022-11-27 16:16:00 72 mm[Hg] Miguel phen F Jasen Weight Measured 2022-11-27 16:16:00 353.80 pounds Henry F Jasen Height Measured 2022-11-27 16:16:00 65.00 inches Henry F Jasen Body Temperature 2022-11-27 16:16:00 97.90 degrees Henry F Jasen Heart Rate 2022-11-27 16:16:00 69.00 /min Bella en F Jasen Respiratory Rate 2022-11-27 16:16:00 Henry F Jasen BP Systolic 2022-08-06 15:44:00 118 mm[Hg] Step hen F Jasen BP Diastolic 2022-08-06 15:44:00 75 mm[Hg] Miguel phen F Jasen Weight Measured 2022-08-06 15:44:00 347.60 pounds Henry F Jasen Height Measured 2022-08-06 15:44:00 65.00 inches Henry F Jasen Body Temperature 2022-08-06 15:44:00 97.90 degrees Henry F Jasen Heart Rate 2022-08-06 15:44:00 105.00 /min Step hen F Jasen Respiratory Rate 2022-08-06 15:44:00 Henry F Jasen BP Systolic 2022-07-30 15:02:00 127 mm[Hg] Step hen F Jasen BP Diastolic 2022-07-30 15:02:00 80 mm[Hg] Miguel phen F Jasen Weight Measured 2022-07-30 15:02:00 341.60 pounds Henry F Jasen Height Measured 2022-07-30 15:02:00 65.00 inches Henry F Jasen Body Temperature 2022-07-30 15:02:00 97.20 degrees Henry F Jasen Heart Rate 2022-07-30 15:02:00 98.00 /min Bella en F Jasen Respiratory Rate 2022-07-30 15:02:00 19.00 /min Henry F Jasen BP Systolic 2022-07-02 15:55:00 120 mm[Hg] Step hen F Jasen BP Diastolic 2022-07-02 15:55:00 78 mm[Hg] Miguel phen F Jasen Weight Measured 2022-07-02 15:55:00 336.80 pounds Henry F Jasen Height Measured 2022-07-02 15:55:00 65.00 inches Henry F Jasen Body Temperature 2022-07-02 15:55:00 98.20 degrees Henry F Jasen Heart Rate 2022-07-02 15:55:00 90.00 /min Bella en F Jasen Respiratory Rate 2022-07-02 15:55:00 Henry F Jasen BP Systolic 2022-05-08 15:09:00 115 mm[Hg] Step hen F Jasen BP Diastolic 2022-05-08 15:09:00 67 mm[Hg] Miguel phen F Jasen Weight Measured 2022-05-08 15:09:00 327.80 pounds Henry F Jasen Height Measured 2022-05-08 15:09:00 65.00 inches Henry F Jasen Body Temperature 2022-05-08 15:09:00 98.40 degrees Henry F Jasen Heart Rate 2022-05-08 15:09:00 110.00 /min Step hen F Jasen Respiratory Rate 2022-05-08 15:09:00 20.00 /min Henry F Jasen BP Systolic 2021-12-05 14:40:00 123 mm[Hg] Step hen F Jasen BP Diastolic 2021-12-05 14:40:00 66 mm[Hg] Miguel phen F Jasen Weight Measured 2021-12-05 14:40:00 365.00 pounds Henry F Jasen Height Measured 2021-12-05 14:40:00 65.00 inches Henry F Jasen Body Temperature 2021-12-05 14:40:00 98.70 degrees Henry F Jasen Heart Rate 2021-12-05 14:40:00 101.00 /min Step hen F Jasen Respiratory Rate 2021-12-05 14:40:00 21.00 /min Henry F Jasen BP Systolic 2021-09-16 14:11:00 117 mm[Hg] Step hen F Jasen BP Diastolic 2021-09-16 14:11:00 69 mm[Hg] Miguel phen F Jasen Weight Measured 2021-09-16 14:11:00 358.00 pounds Henry F Jasen Height Measured 2021-09-16 14:11:00 65.00 inches Henry F Jasen Body Temperature 2021-09-16 14:11:00 98.40 degrees Henry F Jasen Heart Rate 2021-09-16 14:11:00 122.00 /min Step hen F Jasen Respiratory Rate 2021-09-16 14:11:00 24.00 /min Henry Aggarwal BP Systolic 2021-06-26 13:15:00 96 mm[Hg] BP [...] 15:41:00 85.00 /min Respiratory Rate 2021-03-20 15:41:00 Procedures Procedure Date / Time Performed Performing Clinicia n Source POCT TEST 2024-01-22 07:47:00 Francisco Lin [facility] LIPASE 2024-01-22 07:15:00 Francisco Lin [facility] COMP. METABOLIC PANEL (27418) 2024-01-22 07:15:00 Francisco Lin [facility] CBC WITH DIFF 2024-01-22 07:15:00 Francisco Lin [facility] Plan of Care Planned Activity Planned Date Details Comments Source Goal Plan of Care Note [code = 47198-2] Goal Plan of Care Note [code = 01161-1] Goal Plan of Care Note [code = 54419-5] Goal Plan of Care Note [code = 73146-6] Goal Plan of Care Note [code = 32779-9] Goal Plan of Care Note [code = 70088-5] Goal Plan of Care Note [code = 79692-7] Goal Plan of Care Note [code = 69908-8] Goal Plan of Care Note [code = 05690-1] Goal Plan of Care Note [code = 64892-8] Goal Plan of Care Note [code = 88212-1] Goal Plan of Care Note [code = 45391-2] Goal Plan of Care Note [code = 56517-7] Goal Plan of Care Note [code = 92816-7] Goal Plan of Care Note [code = 43202-1] Goal Plan of Care Note [code = 01657-5] Goal Plan of Care Note [code = 39464-6] Goal Plan of Care Note [code = 27884-6] Goal Plan of Care Note [code = 03091-3] Goal Plan of Care Note [code = 51953-5] Goal Plan of Care Note [code = 30474-3] Goal Plan of Care Note [code = 95221-6] Goal Plan of Care Note [code = 44914-4] Goal Plan of Care Note [code = 81996-0] Goal Plan of Care Note [code = 02589-4] Goal Plan of Care Note [code = 08510-0] Goal Plan of Care Note [code = 41673-8] Goal Plan of Care Note [code = 20095-9] Goal Plan of Care Note [code = 68225-6] Goal Plan of Care Note [code = 92148-3] Goal Plan of Care Note [code = 77219-6] Goal Plan of Care Note [code = 75232-5] Goal Plan of Care Note [code = 29237-2] Goal Plan of Care Note [code = 83312-1] Goal Plan of Care Note [code = 82363-4] Goal Plan of Care Note [code = 49718-2] Goal Plan of Care Note [code = 48333-3] Goal Plan of Care Note [code = 79400-9] Goal Plan of Care Note [code = 62457-6] Goal Plan of Care Note [code = 14143-0] Goal Plan of Care Note [code = 21952-1] Goal Plan of Care Note [code = 54725-6] Goal Plan of Care Note [code = 58918-0] Goal Plan of Care Note [code = 67929-6] Goal Plan of Care Note [code = 77759-3] Goal Plan of Care Note [code = 11394-4] Goal Plan of Care Note [code = 75082-6] Goal Plan of Care Note [code = 25382-5] Goal Plan of Care Note [code = 49064-8] Goal Plan of Care Note [code = 44219-1] Goal Plan of Care Note [code = 67778-5] Goal Plan of Care Note [code = 85861-1] Goal Plan of Care Note [code = 97647-9] Goal Plan of Care Note [code = 42424-2] Goal Plan of Care Note [code = 75741-0] Goal Plan of Care Note [code = 22045-0] Goal Plan of Care Note [code = 00563-3] Goal Plan of Care Note [code = 85458-3] Goal Plan of Care Note [code = 10315-7] Goal Plan of Care Note [code = 66892-0] Goal Plan of Care Note [code = 04685-5] Goal Plan of Care Note [code = 45196-6] Encounters Start Date/Time End Date/Time Encounter Type Admission Type Attending [facility] Care Department Encounter ID Source 2024-05-23 13:29:58 2024-05-23 13:29:58 Outpatient [facility] [id number] Henry Aggarwal 2024-05-23 00:00:00 2024-05-23 00:00:00 Outpatient Visit [facility] [id number] Henry Aggarwal 2024-05-09 15:16:02 2024-05-09 15:16:02 Outpatient [place] [id number] Henry Aggarwal 2024-05-09 00:00:00 2024-05-09 00:00:00 Outpatient Visit [facility] [id number] Henry Aggarwal 2024-05-05 15:35:41 2024-05-05 15:35:41 Outpatient [place] [id number] Henry Aggarwal 2024-01-22 01:12:00 2024-01-22 04:04:00 Emergency Francisco Lin [facility] [id number] [facility] 2024-01-22 01:12:00 2024-01-22 04:04:00 Emergency X FRANCISCO LIN [facility] ERT [id number] [facility] 2023-09-03 16:00:06 2023-09-03 16:00:06 Outpatient [facility] [id number] Henry Aggarwal 2023-08-13 17:32:11 2023-08-13 17:32:11 Outpatient [place] [id number] Henry Aggarwal 2022-11-27 16:15:57 2022-11-27 16:15:57 Outpatient [place] [id number] Henry Aggarwal 2022-11-25 15:11:52 2022-11-25 15:11:52 Outpatient [facility] [id number] Henry Aggarwal 2022-08-06 15:28:35 2022-08-06 15:28:35 Outpatient [facility] [id number] Henry Aggarwal 2022-07-30 14:49:07 2022-07-30 14:49:07 Outpatient [facility] [id number] Henry Aggarwal 2022-07-30 00:00:00 2022-07-30 00:00:00 Outpatient Visit [id number] -[id number] [id number] da7-46da-9 [id number] de12d8 2022-07-02 15:43:12 2022-07-02 15:43:12 Outpatient SFA SFA [id number] Henry Aggarwal 2022-07-02 00:00:00 2022-07-02 00:00:00 Outpatient Visit [id number] -[id number] [id number]-a 60b-c70d16 13563y 2022-05-08 00:00:00 2022-05-08 00:00:00 Outpatient Visit [id number]- [id number] -9822-d14 [id number] i25-5nj0-0 822-d144f2 abab48 2022-03-04 00:00:00 2022-03-04 00:00:00 Outpatient Visit [id number]- [id number] -858f-7b4 [id number] o01-8306-7 58f-7b4a08 c3a59f Results Test Description Test Time Test Comments Results Result Co mments Source [facility]. Metabolic Panel ([id number])2024-01-22 07:38:44* Test Item Value Reference Range Interpretation Comme nts NA (test code = 5582666569) 139 mmol/L 135-145 K (test code = 2706193168) 3.6 mmol/L 3.5-5.0 CL (test code = 7974421412) 105 mmol/L 98-108 CO2 TOTAL (test code = 4355790285) 26 mmol/L 23-31 AGAP (test code = 3613322041) 8 2-16 BUN (test code = 3127766189) 8 mg/dL 7-23 GLUCOSE (test code = 2358339584) 157 mg/dL 70-110 H CREATININE (test code = 2160-0) 0.66 mg/dL 0.50-1.04 TOTAL BILI (test code = 6648172492) 0.9 mg/dL 0.1-1.1 CALCIUM (test code = 8232631892) 8.9 mg/dL 8.6-10.6 T PROTEIN (test code = 0834645208) 7.0 g/dL 6.3-8.2 ALBUMIN (test code = 9373883308) 3.9 g/dL 3.5-5.0 ALK PHOS (test code = 2754497967) 91 U/L 34-122 ALTv (test code = 1742-6) 71 U/L 5-35 H AST(SGOT) (test code = 2597313417) 48 U/L 13-40 H eGFR (test code = 49988-9) 121.2 mL/min/1.73m2 CKD-EPI eGFR (2020). Assuming creatinine has been stable day-to-day for at least three months, the eGFR indicates Category G1 (>= 90 mL/min/1.73 m2) Lab Interpretation (test code = 94118-7) [facility]38:19* Test Item Value Reference Range Interpretation Comme nts LIPASE (test code = 1631415456) 252 U/L 0-220 H Lab Interpretation (test cod e = 75545-0) Abnormal [facility] CenterCb with [id number] 07:27:19* Test Item Value Reference Range Interpretation Comme nts WBC (test code = 6690-2) 9.72 4.30-11.10 RBC (test code = 789-8) 4.40 3.93-5.25 HGB (test code = 718-7) 13.1 g/dL 11.6-15.0 HCT (test code = 4544-3) 39.1 % 35.7-45.2 MCV (test code = 787-2) 88.9 fL 80.6-95.5 MCH (test code = 785-6) 29.8 pg 25.9-32.8 MCHC (test code = 786-4) 33.5 g/dL 31.6-35.1 RDW-SD (test code = 23030-8) 42.0 fL 39.0-49.9 RDW-CV (test code = 788-0) 12.9 % 12.0-15.5 PLT (test code = 777-3) 242 166-358 MPV (test code = 47217-6) 10.3 fL 9.5-12.9 NRBC/100 WBC (test code = 2246967099) 0.0 0.0-10.0 NRBC x10^3 (test code = 3772604526) See_Comment [Automated me ssage] The system which generated this result transmitted reference range: 10*3/?L. The reference range was not used to interpret this result as normal/abnormal. GRAN MAT (NEUT) % (test code = 770-8) 61.0 % IMM GRAN % (test code = 7141452018) 0.60 % LYMPH % (test code = 736-9) 29.5 % MONO % (test code = 5905-5) 7.2 % EOS % (test code = 713-8) 1.4 % BASO % (test code = 706-2) 0.3 % GRAN MAT x10^3(ANC) (test code = 7184270684) 5.92 10*3/uL 1.88-7.09 IMM GRAN x10^3 (test code = 7587528486) 0.06 10*3/uL 0.00-0.06 LYMPH x10^3 (test code = 731-0) 2.87 10*3/uL 1.32-3.29 MONO x10^3 (test code = 742-7) 0.70 10*3/uL 0.33-0.92 EOS x10^3 (test code = 711-2) 0.14 10*3/uL 0.03-0.39 BASO x10^3 (test code = 704-7) 0.03 10*3/uL 0.01-0.07 [facility] CenterCULTAZUCENA, [id number] 19:04:35SPECIMEN NUMBER: [id number] CULTURE, URINE SPECIMEN NUMBER: [id number] SPECIMEN COMMENT: URINE SOURCE: URINE REPORT STATUS: FINAL FINAL REPORT: 11/30/2022 <10,000 CFU/ML UROGENITAL [place] PRESENT NOCOMMON PATHOGENS [facility] has important pathology staff changes effective 10/15/2022. New pathology staff will provide uninterrupted, excellent patient care and clinical consultation. See URL: [email or web address]. UNLESS OTHERWISE INDICATED, ALL TESTING PERFORMED AT [facility], [facility]. [address] [place] [address] CISO: ALTHEA VASQUES M.D. CLIA NUMBER [id number] [place]. [id number], [id number] 00:00:00* Test Item Value Reference Range Interpretation Comme nts CULTURE, URINE (test code = 24444) SPECIMEN NUMBER: [id number] Henry AggarwalCULTAZUCENA, [id number] 00:00:00* Test Item Value Reference Range Interpretation Comme nts CULTURE, URINE (test code = 00131) SPECIMEN NUMBER: [id number] Henry AggarwalLIPID [id number] 08:12:47* Test Item Value Reference Range Interpretation Comme nts CHOLESTEROL (test code = 2210) 121 MG/DL <200 TRIGLYCERIDES (test code = 2232) 116 MG/DL <150 HDL CHOLESTEROL (test code = 2220) 40 MG/DL >39 CALC LDL CHOL (test code = 2237) 61 MG/DL <100 NOTE: CALCULATED LDL IS BASED ON KASEY-KUMAR METHOD WHICHINCLUDES ADJUSTABLE TRIGLYCERIDE:VLDL CHOLESTEROL RATIO.THIS FACTOR VARIES BY MEASURED TRIGLYCERIDE AND NON-HDLCHOLESTEROL CONCENTRATIONS WITH INCREASED CALCULATED LDL SEENIN HIGHER TRIGLYCERIDE OR LOWER NON-HDL SPECIMENS. FOR MOREINFORMATION, SEE CLIENT ANNOUNCEMENT AT [email or web address] /CalcLDL-C RISK RATIO LDL/HDL (test code = 2238) 1.53 RATIO <3.22 UNLESS OTHERW ISE INDICATED, ALL TESTING PERFORMED [facility] [address] [place] [address] CISO: RICHY QUINTERO M.D. CLIA NUMBER [id number] [place]. [id number] LIPID [id number] 00:00:00* Test Item Value Reference Range Interpretation Comme nts CHOLESTEROL (test code = 2210) 121 MG/DL TRIGLYCERIDES (test code = 2232) 116 MG/DL HDL CHOLESTEROL (test code = 2220) 40 MG/DL CALC LDL CHOL (test code = 2237) 61 MG/DL RISK RATIO LDL/HDL (test cod e = 2238) 1.53 RATIO LIPID [id number] 00:00:00* Test Item Value Reference Range Interpretation Comme nts CHOLESTEROL (test code = 2210) 121 MG/DL TRIGLYCERIDES (test code = 2232) 116 MG/DL HDL CHOLESTEROL (test code = 2220) 40 MG/DL CALC LDL CHOL (test code = 2237) 61 MG/DL RISK RATIO LDL/HDL (test cod e = 2238) 1.53 RATIO LIPID [id number] 00:00:00* Test Item Value Reference Range Interpretation Comme nts CHOLESTEROL (test code = 2210) 121 MG/DL TRIGLYCERIDES (test code = 2232) 116 MG/DL HDL CHOLESTEROL (test code = 2220) 40 MG/DL CALC LDL CHOL (test code = 2237) 61 MG/DL RISK RATIO LDL/HDL (test cod e = 2238) 1.53 RATIO LIPID [id number] 00:00:00* Test Item Value Reference Range Interpretation Comme nts CHOLESTEROL (test code = 2210) 121 MG/DL TRIGLYCERIDES (test code = 2232) 116 MG/DL HDL CHOLESTEROL (test code = 2220) 40 MG/DL CALC LDL CHOL (test code = 2237) 61 MG/DL RISK RATIO LDL/HDL (test cod e = 2238) 1.53 RATIO Henry Garcia JasenLIPID [id number] 00:00:00* Test Item Value Reference Range Interpretation Comme nts CHOLESTEROL (test code = 2210) 121 MG/DL TRIGLYCERIDES (test code = 2232) 116 MG/DL HDL CHOLESTEROL (test code = 2220) 40 MG/DL CALC LDL CHOL (test code = 2237) 61 MG/DL RISK RATIO LDL/HDL (test cod e = 2238) 1.53 RATIO Henry AggarwalCOMPREHENSIVE METABOLIC [id number] 03:48:15* Test Item Value Reference Range Interpretation Comme nts GLUCOSE (test code = 2217) 108 MG/DL 70-99 H BUN (test code = 2208) 15 MG/DL 6-20 CREATININE (test code = 2214) 0.64 MG/DL 0.60-1.30 eGFR (2020 CKD-EPI) (test code = 47313) 124 ML/MIN/1.73 >60 CALC BUN/CREAT (test code = 2235) 23 RATIO 6-28 SODIUM (test code = 2231) 140 MEQ/L 133-146 POTASSIUM (test code = 2228) 4.3 MEQ/L 3.5-5.4 CHLORIDE (test code = 2215) 100 MEQ/L 95-107 CARBON DIOXIDE (test code = 2206) 24 MEQ/L 19-31 CALCIUM (test code = 2209) 10.4 MG/DL 8.5-10.5 PROTEIN, TOTAL (test code = 2229) 8.2 G/DL 6.1-8.3 ALBUMIN (test code = 2201) 4.7 G/DL 3.5-5.2 CALC GLOBULIN (test code = 2240) 3.5 G/DL 1.9-3.7 CALC A/G RATIO (test code = 2234) 1.3 RATIO 1.0-2.6 BILIRUBIN, TOTAL (test code = 2207) 0.7 MG/DL See_Comment [Automated me ssage] The system which generated this result transmitted reference range: <=1.2. The reference range was not used to interpret this result as normal/abnormal. ALKALINE PHOSPHATASE (test code = 2204) 90 U/L 40-112 AST (test code = 2218) 19 U/L 9-40 ALT (test code = 2219) 28 U/L 5-40 LIPID [id number] 03:48:15* Test Item Value Reference Range Interpretation Comme nts CHOLESTEROL (test code = 2210) 193 MG/DL <200 TRIGLYCERIDES (test code = 2232) 107 MG/DL <150 HDL CHOLESTEROL (test code = 2220) 43 MG/DL >39 CALC LDL CHOL (test code = 2237) 129 MG/DL <100 H NOTE: CALCULATED LDL IS BASED ON KASEY-KUMAR METHOD WHICHINCLUDES ADJUSTABLE TRIGLYCERIDE:VLDL CHOLESTEROL RATIO.THIS FACTOR VARIES BY MEASURED TRIGLYCERIDE AND NON-HDLCHOLESTEROL CONCENTRATIONS WITH INCREASED CALCULATED LDL SEENIN HIGHER TRIGLYCERIDE OR LOWER NON-HDL SPECIMENS. FOR MOREINFORMATION, SEE CLIENT ANNOUNCEMENT AT [email or web address] /CalcLDL-C RISK RATIO LDL/HDL (test code = 2238) 3.00 RATIO <3.22 HEMOGLOBIN [id number] 02:42:45* Test Item Value Reference Range Interpretation Comme nts HEMOGLOBIN A1c (test code = 14008) 6.1 % 4.2-5.6 H UNLESS OTHERWISE INDICATED, ALL TESTING PERFORMED [facility] [address] [place] [address] CISO: RICHY QUINTERO M.D. CLIA NUMBER [id number] [place] [id number] HEMOGLOBIN [id number] 00:00:00* Test Item Value Reference Range Interpretation Comme [facility] HEMOGLOBIN A1c (test code = 61379) 6.1 % Henryvanna AggarwalCOMPREHENSIVE METABOLIC [id number] 00:00:00* Test Item Value Reference Range Interpretation Comme nts GLUCOSE (test code = 2217) 108 MG/DL BUN (test code = 2208) 15 MG/DL CREATININE (test code = 2214) 0.64 MG/DL eGFR (2020 CKD-EPI) (test code = 65743) 124 ML/MIN/1.73 CALC BUN/CREAT (test code = [...] (test code = 2219) 28 U/L LIPID [id number] 00:00:00* Test Item Value Reference Range Interpretation Comme nts CHOLESTEROL (test code = 2210) 193 MG/DL TRIGLYCERIDES (test code = 2232) 107 MG/DL HDL CHOLESTEROL (test code = 2220) 43 MG/DL CALC LDL CHOL (test code = 2237) 129 MG/DL RISK RATIO LDL/HDL (test cod e = 2238) 3.00 RATIO HEMOGLOBIN [id number] 00:00:00* Test Item Value Reference Range Interpretation Comme nts HEMOGLOBIN A1c (test code = 91579) 6.1 % COMPREHENSIVE METABOLIC [id number] 00:00:00* Test Item Value Reference Range Interpretation Comme nts GLUCOSE (test code = 2217) 108 MG/DL BUN (test code = 2208) 15 MG/DL CREATININE (test code = 2214) 0.64 MG/DL eGFR (2020 CKD-EPI) (test code = 37328) 124 ML/MIN/1.73 CALC BUN/CREAT (test code = [...] (test code = 2219) 28 U/L LIPID [id number] 00:00:00* Test Item Value Reference Range Interpretation Comme nts CHOLESTEROL (test code = 2210) 193 MG/DL TRIGLYCERIDES (test code = 2232) 107 MG/DL HDL CHOLESTEROL (test code = 2220) 43 MG/DL CALC LDL CHOL (test code = 2237) 129 MG/DL RISK RATIO LDL/HDL (test cod e = 2238) 3.00 RATIO HEMOGLOBIN [id number] 00:00:00* Test Item Value Reference Range Interpretation Comme nts HEMOGLOBIN A1c (test code = 17303) 6.1 % COMPREHENSIVE METABOLIC [id number] 00:00:00* Test Item Value Reference Range Interpretation Comme nts GLUCOSE (test code = 2217) 108 MG/DL BUN (test code = 2208) 15 MG/DL CREATININE (test code = 2214) 0.64 MG/DL eGFR (2020 CKD-EPI) (test code = 22721) 124 ML/MIN/1.73 CALC BUN/CREAT (test code = [...] (test code = 2219) 28 U/L LIPID [id number] 00:00:00* Test Item Value Reference Range Interpretation Comme nts CHOLESTEROL (test code = 2210) 193 MG/DL TRIGLYCERIDES (test code = 2232) 107 MG/DL HDL CHOLESTEROL (test code = 2220) 43 MG/DL CALC LDL CHOL (test code = 2237) 129 MG/DL RISK RATIO LDL/HDL (test cod e = 2238) 3.00 RATIO HEMOGLOBIN [id number] 00:00:00* Test Item Value Reference Range Interpretation Comme nts HEMOGLOBIN A1c (test code = 55651) 6.1 % COMPREHENSIVE METABOLIC [id number] 00:00:00* Test Item Value Reference Range Interpretation Comme nts GLUCOSE (test code = 2217) 108 MG/DL BUN (test code = 2208) 15 MG/DL CREATININE (test code = 2214) 0.64 MG/DL eGFR (2020 CKD-EPI) (test code = 75673) 124 ML/MIN/1.73 CALC BUN/CREAT (test code = [...] (test code = 2219) 28 U/L LIPID [id number] 00:00:00* Test Item Value Reference Range Interpretation Comme nts CHOLESTEROL (test code = 2210) 193 MG/DL TRIGLYCERIDES (test code = 2232) 107 MG/DL HDL CHOLESTEROL (test code = 2220) 43 MG/DL CALC LDL CHOL (test code = 2237) 129 MG/DL RISK RATIO LDL/HDL (test cod e = 2238) 3.00 RATIO HEMOGLOBIN [id number] 00:00:00* Test Item Value Reference Range Interpretation Comme nts HEMOGLOBIN A1c (test code = 53461) 6.1 % COMPREHENSIVE METABOLIC [id number] 00:00:00* Test Item Value Reference Range Interpretation Comme nts GLUCOSE (test code = 2217) 108 MG/DL BUN (test code = 2208) 15 MG/DL CREATININE (test code = 2214) 0.64 MG/DL eGFR (2020 CKD-EPI) (test code = 26185) 124 ML/MIN/1.73 CALC BUN/CREAT (test code = [...] ALT (test code = 2219) 28 U/L Henry AggarwalLIPID [id number] 00:00:00* Test Item Value Reference Range Interpretation Comme nts CHOLESTEROL (test code = 2210) 193 MG/DL TRIGLYCERIDES (test code = 2232) 107 MG/DL HDL CHOLESTEROL (test code = 2220) 43 MG/DL CALC LDL CHOL (test code = 2237) 129 MG/DL RISK RATIO LDL/HDL (test cod e = 2238) 3.00 RATIO Henry AggarwalHEMOGLOBIN [id number] 00:00:00* Test Item Value Reference Range Interpretation Comme nts HEMOGLOBIN A1c (test code = 26058) 6.1 % Henry AggarwalCOMPREHENSIVE METABOLIC [id number] 00:00:00* Test Item Value Reference Range Interpretation Comme nts GLUCOSE (test code = 2217) 108 MG/DL BUN (test code = 2208) 15 MG/DL CREATININE (test code = 2214) 0.64 MG/DL eGFR (2020 CKD-EPI) (test code = 89071) 124 ML/MIN/1.73 CALC BUN/CREAT (test code = [...] ALT (test code = 2219) 28 U/L Henry AggarwalLIPID [id number] 00:00:00* Test Item Value Reference Range Interpretation Comme nts CHOLESTEROL (test code = 2210) 193 MG/DL TRIGLYCERIDES (test code = 2232) 107 MG/DL HDL CHOLESTEROL (test code = 2220) 43 MG/DL CALC LDL CHOL (test code = 2237) 129 MG/DL RISK RATIO LDL/HDL (test cod e = 2238) 3.00 RATIO Henry AggarwalLIPID [id number] 00:00:00* Test Item Value Reference Range Interpretation Comme nts CHOLESTEROL (test code = 2210) 182 MG/DL TRIGLYCERIDES (test code = 2232) 131 MG/DL HDL CHOLESTEROL (test code = 2220) 41 MG/DL CALC LDL CHOL (test code = 2237) 116 MG/DL RISK RATIO LDL/HDL (test cod e = 2238) 2.83 RATIO Henry AggarwalCOMPREHENSIVE METABOLIC [id number] 00:00:00* Test Item Value Reference Range Interpretation Comme nts GLUCOSE (test code = 2217) 171 MG/DL BUN (test code = 2208) 13 MG/DL CREATININE (test code = 2214) 0.66 MG/DL eGFR AMER. (test cod e = 22289) 140 ML/MIN/1.73 eGFR NON- AMER. (test code = 86753) 121 ML/MIN/1.73 CALC BUN/CREAT (test code = [...] ALT (test code = 2219) 62 U/L Henry Garcia AustinHEMOGLOBIN [id number] 00:00:00* Test Item Value Reference Range Interpretation Comme nts HEMOGLOBIN A1c (test code = 09990) 7.6 % LIPID [id number] 00:00:00* Test Item Value Reference Range Interpretation Comme nts CHOLESTEROL (test code = 2210) 182 MG/DL TRIGLYCERIDES (test code = 2232) 131 MG/DL HDL CHOLESTEROL (test code = 2220) 41 MG/DL CALC LDL CHOL (test code = 2237) 116 MG/DL RISK RATIO LDL/HDL (test cod e = 223) 2.83 RATIO COMPREHENSIVE METABOLIC [id number] 00:00:00* Test Item Value Reference Range Interpretation Comme nts GLUCOSE (test code = 2216) 171 MG/DL BUN (test code = 2208) 13 MG/DL CREATININE (test code = 2214) 0.66 MG/DL eGFR AMER. (test cod e = 56084) 140 ML/MIN/1.73 eGFR NON- AMER. (test code = 94215) 121 ML/MIN/1.73 CALC BUN/CREAT (test code = [...] (test code = 2219) 62 U/L HEMOGLOBIN [id number] 00:00:00* Test Item Value Reference Range Interpretation Comme nts HEMOGLOBIN A1c (test code = 22726) 7.6 % LIPID [id number] 00:00:00* Test Item Value Reference Range Interpretation Comme nts CHOLESTEROL (test code = 2210) 182 MG/DL TRIGLYCERIDES (test code = 2232) 131 MG/DL HDL CHOLESTEROL (test code = 2220) 41 MG/DL CALC LDL CHOL (test code = 2237) 116 MG/DL RISK RATIO LDL/HDL (test cod e = 2238) 2.83 RATIO COMPREHENSIVE METABOLIC [id number] 00:00:00* Test Item Value Reference Range Interpretation Comme nts GLUCOSE (test code = 2217) 171 MG/DL BUN (test code = 2208) 13 MG/DL CREATININE (test code = 2214) 0.66 MG/DL eGFR AMER. (test cod e = 07795) 140 ML/MIN/1.73 eGFR NON- AMER. (test code = 85595) 121 ML/MIN/1.73 CALC BUN/CREAT (test code = [...] (test code = 2219) 62 U/L HEMOGLOBIN [id number] 00:00:00* Test Item Value Reference Range Interpretation Comme nts HEMOGLOBIN A1c (test code = 78145) 7.6 % LIPID [id number] 00:00:00* Test Item Value Reference Range Interpretation Comme nts CHOLESTEROL (test code = 2210) 182 MG/DL TRIGLYCERIDES (test code = 2232) 131 MG/DL HDL CHOLESTEROL (test code = 2220) 41 MG/DL CALC LDL CHOL (test code = 2237) 116 MG/DL RISK RATIO LDL/HDL (test cod e = 2238) 2.83 RATIO COMPREHENSIVE METABOLIC [id number] 00:00:00* Test Item Value Reference Range Interpretation Comme nts GLUCOSE (test code = 2217) 171 MG/DL BUN (test code = 2208) 13 MG/DL CREATININE (test code = 2214) 0.66 MG/DL eGFR AMER. (test cod e = 77756) 140 ML/MIN/1.73 eGFR NON- AMER. (test code = 90944) 121 ML/MIN/1.73 CALC BUN/CREAT (test code = [...] (test code = 2219) 62 U/L HEMOGLOBIN [id number] 00:00:00* Test Item Value Reference Range Interpretation Comme nts HEMOGLOBIN A1c (test code = 92888) 7.6 % LIPID [id number] 00:00:00* Test Item Value Reference Range Interpretation Comme nts CHOLESTEROL (test code = 2210) 182 MG/DL TRIGLYCERIDES (test code = 2232) 131 MG/DL HDL CHOLESTEROL (test code = 2220) 41 MG/DL CALC LDL CHOL (test code = 2237) 116 MG/DL RISK RATIO LDL/HDL (test cod e = 2238) 2.83 RATIO COMPREHENSIVE METABOLIC [id number] 00:00:00* Test Item Value Reference Range Interpretation Comme nts GLUCOSE (test code = 2217) 171 MG/DL BUN (test code = 2208) 13 MG/DL CREATININE (test code = 2214) 0.66 MG/DL eGFR AMER. (test cod e = 02666) 140 ML/MIN/1.73 eGFR NON- AMER. (test code = 73388) 121 ML/MIN/1.73 CALC BUN/CREAT (test code = 2235) 20 RATIO SODIUM (test code = 223) 137 MEQ/L POTASSIUM (test code = 2228) 4.6 MEQ/L CHLORIDE (test code = 2215) 97 MEQ/L CARBON DIOXIDE (test code = 2206) 26 MEQ/L CALCIUM (test code = 2209) 10.1 MG/DL PROTEIN, TOTAL (test code = 222) 8.1 G/DL ALBUMIN (test code = 220) 4.8 G/DL CALC GLOBULIN (test code = 2240) 3.3 G/DL CALC A/G RATIO (test code = 2234) 1.5 RATIO BILIRUBIN, TOTAL (test code = 2206) 1.3 MG/DL ALKALINE PHOSPHATASE (test code = 2203) 85 U/L AST (test code = 2218) 46 U/L ALT (test code = 2219) 62 U/L HEMOGLOBIN [id number] 00:00:00* Test Item Value Reference Range Interpretation Comme nts HEMOGLOBIN A1c (test code = 65388) 7.6 % Henry Garcia AustinLIPID [id number] 00:00:00* Test Item Value Reference Range Interpretation Comme nts CHOLESTEROL (test code = 2210) 182 MG/DL TRIGLYCERIDES (test code = 2232) 131 MG/DL HDL CHOLESTEROL (test code = 2220) 41 MG/DL CALC LDL CHOL (test code = 2237) 116 MG/DL RISK RATIO LDL/HDL (test cod e = 2238) 2.83 RATIO Henry Garcia AustinCOMPREHENSIVE METABOLIC [id number] 00:00:00* Test Item Value Reference Range Interpretation Comme nts GLUCOSE (test code = 2216) 171 MG/DL BUN (test code = 2208) 13 MG/DL CREATININE (test code = 2214) 0.66 MG/DL eGFR AMER. (test cod e = 22410) 140 ML/MIN/1.73 eGFR NON- AMER. (test code = 86240) 121 ML/MIN/1.73 CALC BUN/CREAT (test code = [...] ALT (test code = 2219) 62 U/L Henry AggarwalHEMOGLOBIN [id number] 00:00:00* Test Item Value Reference Range Interpretation Comme [facility] HEMOGLOBIN A1c (test code = 47647) 7.6 % Henry AggarwalLIPID [id number] 00:00:00* Test Item Value Reference Range Interpretation Comme nts CHOLESTEROL (test code = 2210) 177 MG/DL TRIGLYCERIDES (test code = 2232) 177 MG/DL HDL CHOLESTEROL (test code = 2220) 41 MG/DL CALC LDL CHOL (test code = 2237) 107 MG/DL RISK RATIO LDL/HDL (test cod e = 2238) 2.61 RATIO Henry AggarwalCOMPREHENSIVE METABOLIC [id number] 00:00:00* Test Item Value Reference Range Interpretation Comme nts GLUCOSE (test code = 2217) 194 MG/DL BUN (test code = 2208) 14 MG/DL CREATININE (test code = 2214) 0.68 MG/DL eGFR AMER. (test cod e = 59105) 139 ML/MIN/1.73 eGFR NON- AMER. (test code = 36459) 120 ML/MIN/1.73 CALC BUN/CREAT (test code = [...] (test code = 2219) 55 U/L LIPID [id number] 00:00:00* Test Item Value Reference Range Interpretation Comme nts CHOLESTEROL (test code = 2210) 177 MG/DL TRIGLYCERIDES (test code = 2232) 177 MG/DL HDL CHOLESTEROL (test code = 2220) 41 MG/DL CALC LDL CHOL (test code = 2237) 107 MG/DL RISK RATIO LDL/HDL (test cod e = 2238) 2.61 RATIO COMPREHENSIVE METABOLIC [id number] 00:00:00* Test Item Value Reference Range Interpretation Comme nts GLUCOSE (test code = 2217) 194 MG/DL BUN (test code = 2208) 14 MG/DL CREATININE (test code = 2214) 0.68 MG/DL eGFR AMER. (test cod e = 53757) 139 ML/MIN/1.73 eGFR NON- AMER. (test code = 02837) 120 ML/MIN/1.73 CALC BUN/CREAT (test code = [...] (test code = 2219) 55 U/L LIPID [id number] 00:00:00* Test Item Value Reference Range Interpretation Comme nts CHOLESTEROL (test code = 2210) 177 MG/DL TRIGLYCERIDES (test code = 2232) 177 MG/DL HDL CHOLESTEROL (test code = 2220) 41 MG/DL CALC LDL CHOL (test code = 2237) 107 MG/DL RISK RATIO LDL/HDL (test cod e = 2238) 2.61 RATIO COMPREHENSIVE METABOLIC [id number] 00:00:00* Test Item Value Reference Range Interpretation Comme nts GLUCOSE (test code = 2217) 194 MG/DL BUN (test code = 2208) 14 MG/DL CREATININE (test code = 2214) 0.68 MG/DL eGFR AMER. (test cod e = 65929) 139 ML/MIN/1.73 eGFR NON- AMER. (test code = 14847) 120 ML/MIN/1.73 CALC BUN/CREAT (test code = [...] (test code = 2219) 55 U/L LIPID [id number] 00:00:00* Test Item Value Reference Range Interpretation Comme nts CHOLESTEROL (test code = 2210) 177 MG/DL TRIGLYCERIDES (test code = 2232) 177 MG/DL HDL CHOLESTEROL (test code = 2220) 41 MG/DL CALC LDL CHOL (test code = 2237) 107 MG/DL RISK RATIO LDL/HDL (test cod e = 2238) 2.61 RATIO COMPREHENSIVE METABOLIC [id number] 00:00:00* Test Item Value Reference Range Interpretation Comme nts GLUCOSE (test code = 2217) 194 MG/DL BUN (test code = 2208) 14 MG/DL CREATININE (test code = 2214) 0.68 MG/DL eGFR AMER. (test cod e = 92955) 139 ML/MIN/1.73 eGFR NON- AMER. (test code = 91299) 120 ML/MIN/1.73 CALC BUN/CREAT (test code = [...] (test code = 2219) 55 U/L LIPID [id number] 00:00:00* Test Item Value Reference Range Interpretation Comme nts CHOLESTEROL (test code = 2210) 177 MG/DL TRIGLYCERIDES (test code = 2232) 177 MG/DL HDL CHOLESTEROL (test code = 2220) 41 MG/DL CALC LDL CHOL (test code = 2237) 107 MG/DL RISK RATIO LDL/HDL (test cod e = 2238) 2.61 RATIO COMPREHENSIVE METABOLIC [id number] 00:00:00* Test Item Value Reference Range Interpretation Comme nts GLUCOSE (test code = 2217) 194 MG/DL BUN (test code = 2208) 14 MG/DL CREATININE (test code = 2214) 0.68 MG/DL eGFR AMER. (test cod e = 62635) 139 ML/MIN/1.73 eGFR NON- AMER. (test code = 86996) 120 ML/MIN/1.73 CALC BUN/CREAT (test code = [...] ALT (test code = 2219) 55 U/L Henry Garcia [place]ariLIPID [id number] 00:00:00* Test Item Value Reference Range Interpretation Comme nts CHOLESTEROL (test code = 2210) 177 MG/DL TRIGLYCERIDES (test code = 2232) 177 MG/DL HDL CHOLESTEROL (test code = 2220) 41 MG/DL CALC LDL CHOL (test code = 2237) 107 MG/DL RISK RATIO LDL/HDL (test cod e = 2238) 2.61 RATIO Henry AggarwalCOMPREHENSIVE METABOLIC [id number] 00:00:00* Test Item Value Reference Range Interpretation Comme nts GLUCOSE (test code = 2217) 194 MG/DL BUN (test code = 2208) 14 MG/DL CREATININE (test code = 2214) 0.68 MG/DL eGFR AMER. (test cod e = 61607) 139 ML/MIN/1.73 eGFR NON- AMER. (test code = 67379) 120 ML/MIN/1.73 CALC BUN/CREAT (test code = [...] ALT (test code = 2219) 55 U/L Henry AggarwalHEMOGLOBIN A1c [ADDED]2021-03-22 00:00:00* Test Item Value Reference Range Interpretation Comme nts HEMOGLOBIN A1c (test code = 65688) 10.6 % Henry AggarwalCOMPREHENSIVE METABOLIC [id number] 00:00:00* Test Item Value Reference Range Interpretation Comme nts GLUCOSE (test code = 2217) 252 MG/DL BUN (test code = 2208) 14 MG/DL CREATININE (test code = 2214) 0.58 MG/DL eGFR AMER. (test cod e = 32045) 146 ML/MIN/1.73 eGFR NON- AMER. (test code = 14366) 126 ML/MIN/1.73 CALC BUN/CREAT (test code = [...] (test code = 2219) 40 U/L LIPID [id number] 00:00:00* Test Item Value Reference Range Interpretation [...] Comme nts HEMOGLOBIN A1c (test code = 99695) 10.6 % COMPREHENSIVE METABOLIC [id number] 00:00:00* Test Item Value Reference Range Interpretation Comme nts GLUCOSE (test code = 2217) 252 MG/DL BUN (test code = 2208) 14 MG/DL CREATININE (test code = 2214) 0.58 MG/DL eGFR AMER. (test cod e = 90985) 146 ML/MIN/1.73 eGFR NON- AMER. (test code = 72470) 126 ML/MIN/1.73 CALC BUN/CREAT (test code = [...] (test code = 2219) 40 U/L LIPID [id number] 00:00:00* Test Item Value Reference Range Interpretation [...] Comme nts HEMOGLOBIN A1c (test code = 46711) 10.6 % COMPREHENSIVE METABOLIC [id number] 00:00:00* Test Item Value Reference Range Interpretation Comme nts GLUCOSE (test code = 2217) 252 MG/DL BUN (test code = 2208) 14 MG/DL CREATININE (test code = 2214) 0.58 MG/DL eGFR AMER. (test cod e = 20882) 146 ML/MIN/1.73 eGFR NON- AMER. (test code = 12530) 126 ML/MIN/1.73 CALC BUN/CREAT (test code = [...] (test code = 2219) 40 U/L LIPID [id number] 00:00:00* Test Item Value Reference Range Interpretation [...] Comme nts HEMOGLOBIN A1c (test code = 65428) 10.6 % COMPREHENSIVE METABOLIC [id number] 00:00:00* Test Item Value Reference Range Interpretation Comme nts GLUCOSE (test code = 2217) 252 MG/DL BUN (test code = 2208) 14 MG/DL CREATININE (test code = 2214) 0.58 MG/DL eGFR AMER. (test cod e = 19585) 146 ML/MIN/1.73 eGFR NON- AMER. (test code = 99895) 126 ML/MIN/1.73 CALC BUN/CREAT (test code = [...] (test code = 2219) 40 U/L LIPID [id number] 00:00:00* Test Item Value Reference Range Interpretation [...] Comme nts HEMOGLOBIN A1c (test code = 22326) 10.6 % COMPREHENSIVE METABOLIC [id number] 00:00:00* Test Item Value Reference Range Interpretation Comme nts GLUCOSE (test code = 2217) 252 MG/DL BUN (test code = 2208) 14 MG/DL CREATININE (test code = 2214) 0.58 MG/DL eGFR AMER. (test cod e = 83526) 146 ML/MIN/1.73 eGFR NON- AMER. (test code = 47986) 126 ML/MIN/1.73 CALC BUN/CREAT (test code = [...] ALT (test code = 2219) 40 U/L Henry AggarwalLIPID [id number] 00:00:00* Test Item Value Reference Range Interpretation Comme nts CHOLESTEROL (test code = 2210) 181 MG/DL TRIGLYCERIDES (test code = 2232) 163 MG/DL HDL CHOLESTEROL (test code = 2220) 37 MG/DL CALC LDL CHOL (test code = 2237) 116 MG/DL RISK RATIO LDL/HDL (test cod e = 2238) 3.14 RATIO Henry AggarwalHEMOGLOBIN A1c [ADDED]2021-03-22 00:00:00* Test Item Value Reference Range Interpretation Comme nts HEMOGLOBIN A1c (test code = 48697) 10.6 % Henry AggarwalCOMPREHENSIVE METABOLIC [id number] 00:00:00* Test Item Value Reference Range Interpretation Comme nts GLUCOSE (test code = 2217) 252 MG/DL BUN (test code = 2208) 14 MG/DL CREATININE (test code = 2214) 0.58 MG/DL eGFR AMER. (test cod e = 95907) 146 ML/MIN/1.73 eGFR NON- AMER. (test code = 04440) 126 ML/MIN/1.73 CALC BUN/CREAT (test code = [...] ALT (test code = 2219) 40 U/L Henry AggarwalLIPID [id number] 00:00:00* Test Item Value Reference Range Interpretation Comme nts CHOLESTEROL (test code = 2210) 181 MG/DL TRIGLYCERIDES (test code = 2232) 163 MG/DL HDL CHOLESTEROL (test code = 2220) 37 MG/DL CALC LDL CHOL (test code = 2237) 116 MG/DL RISK RATIO LDL/HDL (test cod e = 2238) 3.14 RATIO Henry Aggarwal Notes Date/Time Note Provider Source [facility]2024-09-23 00:00:00 [facility]2024-06-07 04:01:53 Prescriptions provided Discussed tramadol side affects and to avoid driving/operating machinery/or engaging in activities requiring alertness while taking. Pt verbalized understanding of instructions, pt awake alert oriented, resp reg unlabored, skin w/d, color appropriate for race, moves all ext well,pt encouraged to follow up with pcp. Advised to seek medical attention for new/prolonged/worsening of symptoms. No adverse reaction to meds given in ER noted upon discharge. PIV d'cd, dressing to site, catheter in tact. Awake, alert oriented, resp reg unlabored, skin w/d, pt leaving amb with steady gait, in no apparent distress. Elise Jim[facility]nez [id number] 02[facility]22:08 Instructed patient that I need a urine sample before medicating for pain. Verbalized understanding. Dejah [place] - [id number] 01:04:38 Pt arrived ambulatory without assist. Pt states "I have been having stomach issues for the last week. I went to [place] two days ago, they did an ultrasound of gallbladder, blood work and urine, it was all negative. They sent me home with pepcid and nausea meds those helped but are not making it go away. I have been having nausea, vomiting, and diarrhea." Jessica Thao [facility]
[2024-06-04] MEDS ORDERED: PROMETHAZINE 25 MG TABLET ONE (22:57)
[2024-06-04] MEDS ORDERED: HYDROCODONE/APAP 5/325 MG TAB ONE (22:58)
[2024-06-04] MEDS ORDERED: methocarbamoL 500 MG TAB ONE (22:58)
[2024-06-04] MEDS ORDERED: KETOROLAC 30 MG/ML INJ ONE (22:58)
[2024-06-04 23:15] LABS: Specific Gravity 1.022 (1.005-1.030)
--- NOTE | 2024-06-05 01:34 | RAD REPORT ---
EXAM: CT Abdomen and Pelvis Without Intravenous Contrast CLINICAL HISTORY: Acute back pain. TECHNIQUE: Axial computed tomography images of the abdomen and pelvis without intravenous contrast. Sagittal a nd coronal reformatted images were created and reviewed. This CT exam was performed using one or more of the following dose reduction techniques: automated exposure control, adjustment of the mA a nd/or kV according to patient size, and/or use of iterative reconstruction technique. COMPARISON: No relevant prior studies available. FINDINGS: Lung bases: Unremarkable. No mass. No consolidation. ABDOMEN: Liver: The liver is enlarged. Gallbladder and bile ducts: Contracted gallbladder. No calcified stones. No ductal dilation. Pancreas: Unremarkable. No ductal dilation. Spleen: The spleen is mildly enlarged. Adrenals: Unremarkable. No mass. Kidneys and ureters: Unremarkable. No obstructing stones. No hydronephrosis. Stomach and bowel: Unremarkable. No obstruction. No mucosal thickening. PELVIS: Appendix: Normal caliber appendix. No findings to suggest acute appendicitis. Bladder: The urinary bladder is decompressed. No stones. Reproductive: Unremarkable as visualized. ABDOMEN and PELVIS: Intraperitoneal space: Unremarkable. No free air. No significant fluid collection. Bones/joints: Degenerative changes at L5-S1. No acute fracture. No dislocation. Soft tissues: Tiny fat-containing umbilical hernia containing fat. Vasculature: Unremarkable. No abdominal aortic aneurysm. Lymph nodes: Unremarkable. No enlarged lymph nodes. IMPRESSION: 1. No renal, ureteral or bladder calculi. No evidence for renal obstruction. 2. Other findings as above. Electronically signed by: Zion Cancino MD 06/05/2024 01:31 AM CDT Due to temporary technical issues with the PACS/HiConversion reporting system, reports are being kylie d by the in-house radiologist without review as a courtesy to ensure prompt reporting the interpreting radiologist is fully responsible for the content of the report. Transcribed Date/Time: 06/05/2024 1:34 AM
--- NOTE | 2024-06-05 02:17 | ER ---
Nurse's Notes [facility] Name: Nicole Myers Age: 28 yrs Sex: Female : 1995 Arrival Date: 06/04/2024 Time: 22:15 Bed 14 Private MD: Diagnosis: Lumbago with sciatica, left side;Degenerative disc disease L5-S1 level lumbar spine Presentation: 06/04 22:28 Chief complaint: Patient states: Pt states Lt lower back pain with numbness and dd2 tingling that goes down LLE and up to Lt shoulder. Pt states occasional pain to Rt lower back. Coronavirus screen: At this time, the client does not indicate any symptoms associated with coronavirus-19. Ebola Screen: No symptoms or risks identified at this time. Initial Sepsis Screen: Does the patient meet any 2 criteria? No. Patient's initial sepsis screen is negative. Does the patient have a suspected source of infection? No. Patient's initial sepsis screen is negative. Risk Assessment: Do you want to hurt yourself or someone else? Patient reports no desire to harm self or others. Onset of symptoms was June 03, 2024. 22:28 Method Of Arrival: Ambulatory dd2 22:28 Acuity: BRIANA 3 dd2 Triage Assessment: 22:33 General: Appears in no apparent distress. Behavior is calm, cooperative, appropriate dd2 for age. Pain: Complains of pain in left low back Pain radiates to left scapular area, left subscapular area, left mid back, left gluteal fold, left hamstring, posterior aspect of left knee and left calf Pain currently is 9 out of 10 on a pain scale. 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 - Infectious Disease History:: Denies. - Social history:: Smoking status: Patient reports the use of cigarette tobacco products, denies chronic smoking, but will smoke occasionally, Reported history of juuling and/or vaping. - Family history:: not pertinent. Screenin:36 [facility] ED Fall Risk Assessment (Adult) History of falling in the last 3 months, mb9 including since admission No falls in past 3 months (0 pts) Confusion or Disorientation No (0 pts) Intoxicated or Sedated No (0 pts) Impaired Gait No (0 pts) Mobility Assist Device Used No (0 pt) Altered Elimination No (0 pt) Score/Fall Risk Level 0 - 2 = Low Risk Oriented to surroundings, Maintained a safe environment, Educated pt \T\ family on fall prevention, incl call for assistance when getting out of bed. Abuse screen: Denies threats or abuse. Nutritional screening: No deficits noted. Tuberculosis screening: No symptoms or risk factors identified. Assessment: 22:50 General: Appears in no apparent distress. Behavior is calm, cooperative. Pain: mb9 Complains of pain in back Pain radiates to left leg Quality of pain is described as sharp, shooting, Pain began 2-3 days ago. Is intermittent. Neuro: Nguyen Agitation-Sedation Scale (RASS): 0 - Alert and Calm Level of Consciousness is awake, alert, obeys commands, Oriented to person, place, time, situation, Appropriate for age. Cardiovascular: Patient's skin is warm and dry. Respiratory: Airway is patent Respiratory effort is even, unlabored, Respiratory pattern is regular, symmetrical. GI: No signs and/or symptoms were reported involving the gastrointestinal system. : No signs and/or symptoms were reported regarding the genitourinary system. EENT: No signs and/or symptoms were reported regarding the EENT system. Derm: Skin is pink, warm \T\ dry. Musculoskeletal: Range of motion: intact in all extremities. Vital Signs: 22:28 BP 122 / 71; Pulse 81; Resp 16; Temp 98.3(TE); Pulse Ox 100% ; Weight 156.49 kg; Height dd2 5 ft. 5 in. ; Pain 04/26; 06/05 01:15 BP 120 / 73; Pulse 83; Resp 16; Pulse Ox 99% ; dd2 03:01 BP 126 / 75; Pulse 79; Resp 16; Temp 98.2; Pulse Ox 100% ; dd2 06/04 22:28 Body Mass Index 57.41 (156.49 kg, 165.1 cm) dd2 06/04 22:28 Pain Scale: Adult dd2 [place] Coma Score: 22:06 Eye Response: spontaneous(4). Motor Response: obeys commands(6). Verbal Response: sp4 oriented(5). Total: 15. ED Course: 06/04 22:17 Patient arrived in ED. jj6 22:22 Myron Ortega MD is Attending Physician. sp4 22:33 Triage completed. dd2 22:33 Arm band placed on right wrist. Patient placed in waiting room, Patient notified of dd2 wait time. 22:36 Stefani Milian, RN is Primary Nurse. mb9 22:36 Placed in gown. Bed in low position. Call light in reach. Side rails up X 1. Provided mb9 Education on: press call light if needing anything. Client placed on continuous cardiac and pulse oximetry monitoring. NIBP monitoring applied. 22:37 No provider procedures requiring assistance completed. mb9 22:51 Patient did not have IV access during this emergency room visit. mb9 23:02 Test, Urine Sent. mb9 23:59 Report given to ANAMARIA Horton. mb9 06/05 00:21 CT Abd/Pelvis - Without Contrast In Process Unspecified. EDMS Administered Medications: 06/04 23:02 Drug: HYDROcodone-acetaminophen PO 5 mg-325 mg 2 tabs PO once Route: PO; mb9 23:36 Follow up: Response: No adverse reaction mb9 23:02 Drug: Ketorolac IM 60 mg IM once Route: IM; Site: right deltoid; mb9 23:36 Follow up: Response: No adverse reaction mb9 23:02 Drug: Methocarbamol PO 1500 mg PO once Route: PO; mb9 23:36 Follow up: Response: No adverse reaction mb9 23:02 Drug: Promethazine PO 25 mg PO once Route: PO; mb9 23:36 Follow up: Response: No adverse reaction mb9 Medication: 22:37 VIS not applicable for this client. mb9 Outcome: 06/05 01:15 Discharged to home ambulatory, dd2 Condition: stable Discharge instructions given to patient, Instructed on discharge instructions, follow up and referral plans. medication usage, Demonstrated understanding of instructions, follow-up care, medications, Prescriptions given X 3, 02:17 Discharge ordered by . sp4 03:02 Patient left the ED. dd2 Signatures: Dispatcher [employer] EDMS Berenice Dumont [email or web address] Stefani Milian, RN RN mb9 Myron Ortega MD MD sp4 PEYTON MURRAY RN RN dd2
--- NOTE | 2024-06-05 02:17 | EDPHYS ---
Physician Documentation [facility] Name: Nicole Myers Age: 28 yrs Sex: Female : 1995 Arrival Date: 06/04/2024 Time: 22:15 Bed 14 Private MD: ED Physician Myron Ortega HPI: 06/04 22:22 This 28 yrs old Female presents to ER via Unassigned with complaints of Low sp4 Back Pain. 06/05 22:06 28-year-old female presents with complaint of lower back pain associated with pain sp4 radiation down the left leg. Patient states she has periodic back problems associated with left sciatica.. 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 - Infectious Disease History:: Denies. - Social history:: Smoking status: Patient reports the use of cigarette tobacco products, denies chronic smoking, but will smoke occasionally, Reported history of juuling and/or vaping. - Family history:: not pertinent. ROS: 06/05 22:06 Constitutional: Negative for fever, chills, and weight loss, positive for lower back sp4 pain with radiation down the left leg All other systems are negative, Exam: 22:06 Constitutional: This is a well developed, well nourished patient who is awake, alert, sp4 and in no acute distress. Morbidly overweight female Head/Face: Normocephalic, atraumatic. Eyes: Pupils equal round and reactive to light, extra-ocular motions intact. Lids and lashes normal. Conjunctiva and sclera are not injected. Cornea within normal limits. Periorbital areas with no swelling, redness, or edema. ENT: Nares patent. No nasal discharge, no septal abnormalities noted. Tympanic membranes are normal and external auditory canals are clear. Oropharynx with no redness, swelling, or masses, exudates, or evidence of obstruction, uvula midline. Mucous membranes moist. Neck: Trachea midline, no thyromegaly or masses palpated, and no cervical lymphadenopathy. Supple, full range of motion without nuchal rigidity, or vertebral point tenderness. Chest/axilla: Normal chest wall appearance and motion. Nontender with no deformity. No lesions are appreciated. Cardiovascular: Regular rate and rhythm with a normal S1 and S2. No gallops, murmurs, or rubs. Normal PMI, no JVD. No pulse deficits. Respiratory: Lungs have equal breath sounds bilaterally, clear to auscultation and percussion. No rales, rhonchi or wheezes noted. No increased work of breathing, no retractions or nasal flaring. Abdomen/GI: Soft, with normal bowel sounds. No distension or tympany. No guarding or rebound. No evidence of tenderness throughout. Back: No spinal tenderness. No costovertebral tenderness. Skin: Warm, dry with normal turgor. Normal color with no rashes, no lesions, and no evidence of cellulitis. MS/ Extremity: Pulses equal, no cyanosis. Neurovascular intact. Full, normal range of motion. Positive for pain on Left straight leg raise Neuro: Awake and alert, GCS 15, oriented to person, place, time, and situation. Cranial nerves II-XII grossly intact. Motor strength 5/5 in all extremities. Sensory grossly intact. Psych: Awake, alert, with orientation to person, place and time. Behavior, mood, and affect are within normal limits Vital Signs: 06/04 22:28 BP 122 / 71; Pulse 81; Resp 16; Temp 98.3(TE); Pulse Ox 100% ; Weight 156.49 kg; Height dd2 5 ft. 5 in. ; Pain /10; 06/05 01:15 BP 120 / 73; Pulse 83; Resp 16; Pulse Ox 99% ; dd2 03:01 BP 126 / 75; Pulse 79; Resp 16; Temp 98.2; Pulse Ox 100% ; dd2 06/04 22:28 Body Mass Index 57.41 (156.49 kg, 165.1 cm) dd2 06/04 22:28 Pain Scale: Adult dd2 [place] Coma Score: 22:06 Eye Response: spontaneous(4). Motor Response: obeys commands(6). Verbal Response: sp4 oriented(5). Total: 15. MDM: 06/04 22:40 Medical Screening Exam initiated sp4 06/05 02:11 ED course: EXAM: CTAbdomen and Pelvis Without Intravenous Contrast CLINICAL HISTORY: sp4 Acute back pain. TECHNIQUE: Axial computed tomography images of the abdomen and pelvis without intravenous contrast. Sagittal and coronal reformatted images were created and reviewed. This CT exam was performed using one or more of the following dose reduction techniques: automated exposure control, adjustment of the mA and/or kV according to patient size, and/or use of iterative reconstruction technique. COMPARISON: No relevant prior studies available. FINDINGS: Lung bases: Unremarkable. No mass. No consolidation. ABDOMEN: Liver: The liver is enlarged. Gallbladder and bile ducts: Contracted gallbladder. No calcified stones. No ductal dilation. Pancreas: Unremarkable. No ductal dilation. Spleen: The spleen is mildly enlarged. Adrenals: Unremarkable. No mass. Kidneys and ureters: Unremarkable. No obstructing stones. No hydronephrosis. Stomach and bowel: Unremarkable. No obstruction. No mucosal thickening. PELVIS: Appendix: Normal caliber appendix. No findings to suggest acute appendicitis. Bladder: The urinary bladder is decompressed. No stones. Reproductive: Unremarkable as visualized. ABDOMEN and PELVIS: Intraperitoneal space: Unremarkable. No free air. No significant fluid collection. Bones/joints: Degenerative changes at L5-S1. No acute fracture. No dislocation. Soft tissues: Tiny fat-containing umbilical hernia containing fat. Vasculature: Unremarkable. No abdominal aortic aneurysm. Lymph nodes: Unremarkable. No enlarged lymph nodes. IMPRESSION: 1. No renal, ureteral or bladder calculi. No evidence for renal obstruction. 2. Other findings as above. Electronically signed by: Zion Cancino MD 06/05/2024 01:31. 22:06 Differential diagnosis: arthritis, strain, fracture, sciatica, contusion, Herniated sp4 disc. Data reviewed: vital signs, nurses notes, lab test result(s), UPT: negative radiologic studies, CT scan. Consideration of Admission/Observation Escalation of care including admission/observation considered. ED course: Pain has improved. Patient stable for discharge home. Strongly advised to loose weight via low impact exercise and diligent dieting. . 06/04 22:46 Order name: Test, Urine; Complete Time: 23:26 sp4 06/04 22:46 Order name: CT Abd/Pelvis - Without Contrast sp4 Administered Medications: 06/04 23:02 Drug: HYDROcodone-acetaminophen PO 5 mg-325 mg 2 tabs PO once Route: PO; mb9 23:36 Follow up: Response: No adverse reaction mb9 23:02 Drug: Ketorolac IM 60 mg IM once Route: IM; Site: right deltoid; mb9 23:36 Follow up: Response: No adverse reaction mb9 23:02 Drug: Methocarbamol PO 1500 mg PO once Route: PO; mb9 23:36 Follow up: Response: No adverse reaction mb9 23:02 Drug: Promethazine PO 25 mg PO once Route: PO; mb9 23:36 Follow up: Response: No adverse reaction mb9 Disposition Summary: 06/05/24 02:17 Discharge Ordered Notes: Location: Home sp4 Problem: new sp4 Symptoms: have improved sp4 Condition: Stable sp4 Diagnosis - Lumbago with sciatica, left side sp4 - Degenerative disc disease L5-S1 level lumbar spine sp4 Followup: sp4 - With: Private Physician - When: 7 - 10 days - Reason: Recheck today's complaints Discharge Instructions: - Discharge Summary Sheet sp4 - Sciatica sp4 Forms: - Patient Portal Instructions sp4 Prescriptions: - tramadol 100 mg Oral tablet - take 1 tablet ORAL route 3 times per day PRN pain; 20 tablet; Refills: 0, sp4 Product Selection Permitted - Ibuprofen 800 mg Oral Tablet - take 1 tablet ORAL route every 8 hours As needed take with food; 30 tablet; sp4 Refills: 0, Product Selection Permitted - methocarbamol 750 mg Oral tablet - take 2 tablets ORAL route every 8 hours for 10 days PRN pain; 60 tablet; sp4 Refills: 0, Product Selection Permitted Signatures: Dispatcher [employer] Stefani Cloud RN RN mb9 Myron Ortega MD MD sp4 PEYTON MURRAY RN RN dd2
[2024-06-05 08:15] VITALS: BP 126/75; TEMP 98.2; O2SAT 100
== END 2024-06-05 03:02 | disposition home or self-care (01) ==
LOC: ER 22:15
DX: M54.42 Lumbago with sciatica, left side (principal); M51.379 Other intervertebral disc degeneration, lumbosacral region without mention of lumbar back pain or lower extremity pain
CPT/HCPCS: 74176; 81025; 96372; 99284; Q0169